=== PATIENT | male | born 1940 | race Two or more races ===

== ENCOUNTER 2018-10-24 08:55 | Inpatient (IN) | payer MEDICARE, OTHER ==
[~2018-10-24] VITALS: Ht 185.4 cm; Wt 73.0 kg
--- NOTE | 2018-10-24 09:00 | NUR ---
iED Nurse Note: Patient brought in by ambulance RA 26 fron [facility] for flu like symptoms for 3 days in SNF for EMS. patient is alert awake x3
[2018-10-24] MEDS ORDERED: ACETAMINOPHEN325 M1 ORAL (09:12)
[2018-10-24] MEDS ORDERED: BACITRACIN1 EAC1 TP (09:14)
[2018-10-24] MEDS ORDERED: POLYETHYLENE GL17 GM ORAL (09:25)
[2018-10-24] MEDS ORDERED: EMTRIVA200 MG ORAL (09:25)
[2018-10-24] MEDS ORDERED: MULTIVITAMINS1 EAC8 ORAL (09:25)
[2018-10-24] MEDS ORDERED: DONEPEZIL HCL5 M2 ORAL (09:25)
[2018-10-24] MEDS ORDERED: HEPARIN2000 UNIT/ IV (09:25)
[2018-10-24] MEDS ORDERED: CRANBERRY425 MG PO (09:25)
[2018-10-24] MEDS ORDERED: SENNA8.6 M2 PO (09:25)
[2018-10-24 09:31] LABS: HEMATOCRIT 49.5 % (42.0-52.0); MEAN CORPUSCULAR VOLUME 101 FL (80-99); PLATELET COUNT 298 K/UL (150-450); RED CELL DISTRIBUTION WIDTH 12.3 % (11.6-14.8); WHITE BLOOD COUNT 16.1 K/UL (4.8-10.8)
[2018-10-24 09:33] VITALS: BP 110/72
--- NOTE | 2018-10-24 09:33 | NUR ---
ED Nurse Note: Notified Dr. Rowley about patient's rectal temp 100.F
[2018-10-24 09:41] LABS: ANION GAP 12 mmol/L (5-15); BLOOD UREA NITROGEN 39 mg/dL (7-18); CALCIUM 9.6 MG/DL (8.5-10.1); CARBON DIOXIDE 26 MMOL/L (21-32); CHLORIDE 103 MMOL/L (98-107); CREATININE 1.7 MG/DL (0.55-1.30); POTASSIUM 4.1 MMOL/L (3.5-5.1); SODIUM 141 MMOL/L (136-145)
[2018-10-24] MEDS ORDERED: Cefepime HCl 1 GM in D5W 55 ML IVPB ONE (09:45)
[2018-10-24] MEDS ORDERED: Acetaminophen 650 MG SUPP RECTAL ONE (09:45)
[2018-10-24 09:56] LABS: ALANINE AMINOTRANSFERASE 16 U/L (12-78); ALBUMIN 3.7 G/DL (3.4-5.0); ALBUMIN/GLOBULIN RATIO 0.9 (1.0-2.7); ALKALINE PHOSPHATASE 61 U/L (46-116); ASPARTATE AMINO TRANSFERASE 23 U/L (15-37); BILIRUBIN,TOTAL 0.8 MG/DL (0.2-1.0); CKMB 4.7 NG/ML (0.0-3.6); CREATINE KINASE 371 U/L (26-308)
--- NOTE | 2018-10-24 09:59 | Emergency Room Report ---
History of Present Illness General Chief Complaint: General Complaint Source: Patient, Medical Record, EMS, PMD Present Illness HPI This patient presents from a [facility] facility. He has a history of dementia, HIV, diabetes. Per report the patient had an episode of emesis. The EMS report body aches. The patient himself has no specific complaints. He denies pain. He denies cough or congestion. He denies shortness of breath. He has no specific complaints. Allergies: Coded Allergies: CHEESE (Verified Allergy, Severe, 10/24/18) Patient History Past Medical History: see triage record, DM, CAD, dementia, HIV Social History: Denies: smoking, alcohol use, drug use Reviewed Nursing Documentation: PMH: Agreed; PSxH: Agreed Nursing Documentation-PMH Hx Diabetes: Yes History Of Psychiatric Problem: Yes - DEMENTIA ALZHEIMERS Review of Systems All Other Systems: negative except mentioned in HPI Physical Exam Vital Signs Date Time Temp Pulse Resp B/P (MAP) Pulse Ox O2 Delivery O2 Flow Rate FiO2 10/24/18 08:56 99.1 124 18 105/71 (82) 95 Nasal Cannula 4.0 Sp02 EP Interpretation: reviewed, normal General Appearance: no apparent distress, alert, GCS 15, non-toxic Head: normocephalic, atraumatic Eyes: bilateral eye normal inspection, bilateral eye PERRL ENT: hearing grossly normal, normal pharynx, no angioedema, normal voice Neck: normal inspection, full range of motion Respiratory: chest non-tender, lungs clear, normal breath sounds, no respiratory distress, no retraction, no accessory muscle use, speaking full sentences Cardiovascular #1: no edema, tachycardia Gastrointestinal: normal bowel sounds, non tender, soft, non-distended, no guarding, no rebound Rectal: deferred Musculoskeletal: normal inspection, normal range of motion, non-tender Neurologic: alert, responsive, motor strength/tone normal, speech normal Psychiatric: judgement/insight normal, mood/affect normal, no suicidal/ homicidal ideation Medical Decision Making Diagnostic Impression: Primary Impression: Fever Additional Impressions: Tachycardia Pneumonia Sepsis Pyelonephritis ER Course This patient is found to be febrile, tachycardic and possibly with a pyelonephritis. Also chest x-ray could have a possible underlying pneumonia. This patient meets criteria for sepsis. Was given aggressive IV fluids and broad-spectrum antibiotics and admitted for further evaluation and treatment. This patient is critically ill. This patient required complex medical decision- making, aggressive intervention, extensive laboratory workup and monitoring. Critical care time: 40 minutes. Laboratory Tests Test 10/24/18 16:30 10/24/18 18:25 10/25/18 04:04 10/25/18 05:45 White Blood Count 21.6 K/UL (4.8-10.8) H 14.6 K/UL (4.8-10.8) H Red Blood Count 4.14 M/UL (4.70-6.10) L 3.99 M/UL (4.70-6.10) L Hemoglobin 13.8 G/DL (14.2-18.0) L 13.1 G/DL (14.2-18.0) L Hematocrit 40.8 % (42.0-52.0) L 39.4 % (42.0-52.0) L Mean Corpuscular Volume 99 FL (80-99) 99 FL (80-99) Mean Corpuscular Hemoglobin 33.2 PG (27.0-31.0) H 32.7 PG (27.0-31.0) H Mean Corpuscular Hemoglobin Concent 33.7 G/DL (32.0-36.0) 33.1 G/DL (32.0-36.0) Red Cell Distribution Width 12.2 % (11.6-14.8) 12.3 % (11.6-14.8) Platelet Count 224 K/UL (150-450) 198 K/UL (150-450) Mean Platelet Volume 6.3 FL (6.5-10.1) L 6.4 FL (6.5-10.1) L Neutrophils (%) (Auto) % (45.0-75.0) 77.9 % (45.0-75.0) H Lymphocytes (%) (Auto) % (20.0-45.0) 17.3 % (20.0-45.0) L Monocytes (%) (Auto) % (1.0-10.0) 4.6 % (1.0-10.0) Eosinophils (%) (Auto) % (0.0-3.0) 0.1 % (0.0-3.0) Basophils (%) (Auto) % (0.0-2.0) 0.1 % (0.0-2.0) Differential Total Cells Counted 100 Neutrophils % (Manual) 76 % (45-75) H Lymphocytes % (Manual) 15 % (20-45) L Monocytes % (Manual) 4 % (1-10) Eosinophils % (Manual) 1 % (0-3) Basophils % (Manual) 0 % (0-2) Band Neutrophils 4 % (0-8) Platelet Estimate Adequate Platelet Morphology Normal Macrocytosis 1+ Lactic Acid Level 3.10 mmol/L (0.4-2.0) H 3.00 mmol/L (0.4-2.0) H 3.10 mmol/L (0.66-2.22) H Urine Color Yellow Urine Appearance Cloudy Urine pH 6 (4.5-8.0) Urine Specific [place] 1.020 (1.005-1.035) Urine Protein 3+ (NEGATIVE) H Urine Glucose (UA) 3+ (NEGATIVE) H Urine Ketones 1+ (NEGATIVE) H Urine Blood 5+ (NEGATIVE) H Urine Nitrite Negative (NEGATIVE) Urine Bilirubin Negative (NEGATIVE) Urine Urobilinogen Normal MG/DL (0.0-1.0) Urine Leukocyte Esterase 2+ (NEGATIVE) H Urine RBC Tntc /HPF (0 - 0) H Urine WBC Tntc /HPF (0 - 0) H Urine Squamous Epithelial Cells Occasional /LPF Urine Bacteria Moderate /HPF (NONE) H Prothrombin Time 11.3 SEC (9.30-11.50) Prothrombin Time INR 1.1 (0.9-1.1) PTT 30 SEC (23-33) Sodium Level 143 MMOL/L (136-145) Potassium Level 4.1 MMOL/L (3.5-5.1) Chloride Level 110 MMOL/L (98-107) H Carbon Dioxide Level 24 MMOL/L (21-32) Anion Gap 9 mmol/L (5-15) Blood Urea Nitrogen 32 mg/dL (7-18) H Creatinine 1.2 MG/DL (0.55-1.30) Estimate Glomerular Filtration Rate mL/min (>60) Glucose Level 205 MG/DL (74-106) #H Hemoglobin A1c 6.5 % (4.3-6.0) H Calcium Level 8.7 MG/DL (8.5-10.1) Phosphorus Level 2.2 MG/DL (2.5-4.9) L Magnesium Level 1.9 MG/DL (1.8-2.4) Total Bilirubin 0.6 MG/DL (0.2-1.0) Direct Bilirubin 0.1 MG/DL (0.0-0.3) Aspartate Amino Transferase (AST) 24 U/L (15-37) Alanine Aminotransferase (ALT) 21 U/L (12-78) Alkaline Phosphatase 46 U/L (46-116) Total Protein 6.4 G/DL (6.4-8.2) Albumin 2.7 G/DL (3.4-5.0) L Lipase 44 U/L (73-393) L Test 10/25/18 11:50 10/25/18 12:15 10/26/18 04:00 Urine Random Sodium 106 mmol/L (20-110) Lactic Acid Level 1.50 mmol/L (0.4-2.0) Random Vancomycin Level 8.4 ug/mL White Blood Count 13.6 K/UL (4.8-10.8) H Red Blood Count 4.26 M/UL (4.70-6.10) L Hemoglobin 14.1 G/DL (14.2-18.0) L Hematocrit 42.8 % (42.0-52.0) Mean Corpuscular Volume 101 FL (80-99) H Mean Corpuscular Hemoglobin 33.0 PG (27.0-31.0) H Mean Corpuscular Hemoglobin Concent 32.8 G/DL (32.0-36.0) Red Cell Distribution Width 13.0 % (11.6-14.8) Platelet Count 204 K/UL (150-450) Mean Platelet Volume 6.6 FL (6.5-10.1) Neutrophils (%) (Auto) 77.9 % (45.0-75.0) H Lymphocytes (%) (Auto) 15.2 % (20.0-45.0) L Monocytes (%) (Auto) 5.8 % (1.0-10.0) Eosinophils (%) (Auto) 0.1 % (0.0-3.0) Basophils (%) (Auto) 1.0 % (0.0-2.0) Sodium Level 140 MMOL/L (136-145) Potassium Level 3.8 MMOL/L (3.5-5.1) Chloride Level 107 MMOL/L (98-107) Carbon Dioxide Level 22 MMOL/L (21-32) Anion Gap 11 mmol/L (5-15) Blood Urea Nitrogen 22 mg/dL (7-18) H Creatinine 1.0 MG/DL (0.55-1.30) Estimate Glomerular Filtration Rate mL/min (>60) Glucose Level 181 MG/DL (74-106) H Hemoglobin A1c 6.6 % (4.3-6.0) H Uric Acid 4.3 MG/DL (2.6-7.2) Calcium Level 8.9 MG/DL (8.5-10.1) Phosphorus Level 1.8 MG/DL (2.5-4.9) L Magnesium Level 1.8 MG/DL (1.8-2.4) Ferritin 285 NG/ML (8-388) Total Bilirubin 0.9 MG/DL (0.2-1.0) Gamma Glutamyl Transpeptidase 20 U/L (5-85) Aspartate Amino Transferase (AST) 37 U/L (15-37) Alanine Aminotransferase (ALT) 12 U/L (12-78) Alkaline Phosphatase 54 U/L (46-116) Troponin I 0.000 ng/mL (0.000-0.056) C-Reactive Protein, Quantitative 17.1 mg/dL (0.00-0.90) H Pro-B-Type Natriuretic Peptide 4057 pg/mL (0-125) H Total Protein 6.4 G/DL (6.4-8.2) Albumin 2.7 G/DL (3.4-5.0) L Globulin 3.7 g/dL Albumin/Globulin Ratio 0.7 (1.0-2.7) L Triglycerides Level 113 MG/DL (30-150) Cholesterol Level 123 MG/DL (< 200) LDL Cholesterol 77 mg/dL (<100) HDL Cholesterol 27 MG/DL (40-60) L Cholesterol/HDL Ratio 4.6 (3.3-4.4) H Vitamin B12 Level 326 PG/ML (193-986) Folate 6.9 NG/ML (8.6-58.9) L Thyroid Stimulating Hormone (TSH) 0.588 uiU/mL (0.358-3.740) Microbiology Date/Time Source Procedure Growth Status 10/24/18 17:15 Nasal Nares - Final Complete 10/24/18 17:15 Nasal Nares - Final Complete EKG Diagnostic Results Rate: tachycardiac Rhythm: other - S.tachycardia ST Segments: no acute changes Rhythm Strip Diag. Results EP Interpretation: yes Rate: 100's Rhythm: no PVC's, no ectopy, other - S.tach Chest X-Ray Diagnostic Results Chest X-Ray Diagnostic Results : Chest X-Ray Ordered: Yes # of Views/Limited/Complete: 1 View Indication: Other EP Interpretation: Yes Interpretation: no pneumothorax, other - LLL opacity Impression: Other - See Above Electronically Signed by: Natalya Rowley DO Last Vital Signs Date Time Temp Pulse Resp B/P (MAP) Pulse Ox O2 Delivery O2 Flow Rate FiO2 10/24/18 09:33 100.0 112 21 110/72 99 Nasal Cannula 4.0 Disposition: ADMITTED INPATIENT Condition: Serious Natalya Rowley DO Oct 24, 2018 09:59
--- NOTE | 2018-10-24 10:00 | NUR ---
ED Nurse Note: patient is refusing straight cath at this time, urinal provided instruction provided.
--- NOTE | 2018-10-24 10:10 | NUR ---
ED Nurse Note: notified Dr. Rowley lactic acid 5.5
[2018-10-24 10:21] VITALS: BP 113/66
--- NOTE | 2018-10-24 10:58 | NUR ---
ED Nurse Note: patient's urine sent to lab
[2018-10-24 11:05] LABS: APPEARANCE,URINE CLOUDY; BILIRUBIN, URINE NEGATIVE (NEGATIVE); COLOR,URINE YELLOW; GLUCOSE, URINE (UA) 3+ (NEGATIVE); KETONES,URINE 1+ (NEGATIVE); LEUKOCYTE ESTERASE ,URINE 3+ (NEGATIVE); NITRITE,URINE NEGATIVE (NEGATIVE); PH,URINE 6 (4.5-8.0); PROTEIN,URINE 3+ (NEGATIVE); UROBILINOGEN,URINE NORMAL MG/DL (0.0-1.0)
[2018-10-24 11:22] VITALS: BP 127/57
[2018-10-24 11:40] VITALS: BP 108/65
--- NOTE | 2018-10-24 11:44 | NUR ---
ED Nurse Note: patient transferred to [facility] report given to Rita Endorsed all care to Olivia MENDEZ
--- NOTE | 2018-10-24 11:45 | NUR ---
NURSE NOTES: Patient admitted from ED. Placed on lacquer sizer bed. Patient is on nasal cannula at 4LPM. Awake, alert, verbal, no respiratory distress. No belongings upon admission. Will admit to SDU standard level of care.
--- NOTE | 2018-10-24 12:03 | Diagnostic Imaging Report ---
Indication: Dyspnea Comparison: None A single view chest radiograph was obtained. Findings: Patchy interstitial prominence demonstrated bilaterally nonspecific. Heart size is normal. Bones are osteopenic. IMPRESSION: Patchy basilar interstitial densities nonspecific.
--- NOTE | 2018-10-24 13:00 | NUR ---
NURSE NOTES: Skin assessment done, multiple wounds noted. Bilateral heel DTI, Bilateral foot dryness, bilateral buttocks and trochanter scattered open wounds, sacral and lower hip scattered open wounds, and big black pressure injury noted on patient's left hip/buttock/trochanter area. Wound care nurse made aware, Dr Lindquist made aware.
--- NOTE | 2018-10-24 14:29 | GI Initial Consult Note ---
History of Present Illness General Date patient seen: Oct 24, 2018 Time patient seen: 14:23 Reason for Hospitalization: General Complaint Referring physician: JAKE MAJOR Reason for Consultation: COFFEE GROUNDS Present Illness HPI This patient presents from a intermediate facility. He has a history of dementia, HIV, diabetes. Per report the patient had an episode of emesis. The EMS report body aches. The patient himself has no specific complaints. He denies pain. He denies cough or congestion. He denies shortness of breath. He has no specific complaints. GI consulted for reported. ROS limited, patient seen awake alert no apparent distress. Unable to provide any significant history. No reported coffee grounds, no nausea vomiting since admission. Labs reviewed; WBC 16.1, lactic acid of 3.7, and 1.7. Unknown history of endoscopic or colonoscopy. Home Meds Reported Medications Sennosides (SENNA) 8.6 Mg Tablet, 8.6 MG PO, TAB 10/24/18 Polyethylene Glycol 3350* (POLYETHYLENE GLYCOL 3350*) 17 Gm Powd.pack, 17 GM ORAL BEDTIME PRN for Constipation, PACKET 10/24/18 Emtricitabine* (EMTRIVA*) 200 Mg Capsule, 200 MG ORAL DAILY, CAP 10/24/18 Multivitamin With Minerals (MULTIVITAMINS WITH MINERALS*) 1 Each Tablet, 1 TAB ORAL DAILY, TAB 10/24/18 Heparin Sodium,Porcine/Ns/Pf (Heparin) 2,000 Unit/1000 Ml Iv.soln, 2000 UNIT IV 10/24/18 Donepezil Hcl* (DONEPEZIL HCL*) 5 Mg Tab.rapdis, 5 MG ORAL DAILY, TAB 10/24/18 Cranberry Extract (CRANBERRY) 425 Mg Capsule, 425 MG PO, CAP 10/24/18 Bacitracin (Bacitracin) 1 Each Packet, 1 EACH TP, PACKET 10/24/18 Acetaminophen* (ACETAMINOPHEN 325MG TABLET*) 325 Mg Tablet, 325 MG ORAL Q4H PRN for Mild Pain (Pain Scale 1-3), TAB 10/24/18 Med list reviewed/reconciled: Yes Allergies: Coded Allergies: No Known Allergies (Unverified , 10/24/18) Patient History Limited by: medical condition History Provided By: Medical Record [facility] Narrative Past Medical History: see triage record, DM, CAD, dementia, HIV Social History: Denies: smoking, alcohol use, drug use Reviewed Nursing Documentation: PMH: Agreed; PSxH: Agreed Nursing Documentation-PMH Hx Diabetes: Yes History Of Psychiatric Problem: Yes - DEMENTIA ALZHEIMER Social History: Denies: smoking, alcohol use, drug use, other Review of Systems All Other Systems: negative except mentioned in HPI Physical Exam Vital Signs Date Time Temp Pulse Resp B/P (MAP) Pulse Ox O2 Delivery O2 Flow Rate FiO2 10/24/18 08:56 99.1 124 18 105/71 (82) 95 Nasal Cannula 4.0 Sp02 EP Interpretation: reviewed, normal Labs Laboratory Tests Test 10/24/18 09:15 10/24/18 10:15 White Blood Count 16.1 K/UL (4.8-10.8) H Red Blood Count 4.90 M/UL (4.70-6.10) Hemoglobin 16.0 G/DL (14.2-18.0) Hematocrit 49.5 % (42.0-52.0) Mean Corpuscular Volume 101 FL (80-99) H Mean Corpuscular Hemoglobin 32.6 PG (27.0-31.0) H Mean Corpuscular Hemoglobin Concent 32.3 G/DL (32.0-36.0) Red Cell Distribution Width 12.3 % (11.6-14.8) Platelet Count 298 K/UL (150-450) Mean Platelet Volume 6.3 FL (6.5-10.1) L Neutrophils (%) (Auto) % (45.0-75.0) Lymphocytes (%) (Auto) % (20.0-45.0) Monocytes (%) (Auto) % (1.0-10.0) Eosinophils (%) (Auto) % (0.0-3.0) Basophils (%) (Auto) % (0.0-2.0) Differential Total Cells Counted 100 Neutrophils % (Manual) 82 % (45-75) H Lymphocytes % (Manual) 7 % (20-45) L Monocytes % (Manual) 4 % (1-10) Eosinophils % (Manual) 0 % (0-3) Basophils % (Manual) 0 % (0-2) Band Neutrophils 7 % (0-8) Platelet Estimate Adequate Platelet Morphology Normal Macrocytosis 1+ Prothrombin Time 10.7 SEC (9.30-11.50) Prothromb Time International Ratio 1.0 (0.9-1.1) Activated Partial Thromboplast Time 26 SEC (23-33) Urine Color Yellow Urine Appearance Cloudy Urine pH 6 (4.5-8.0) Urine Specific [place] 1.020 (1.005-1.035) Urine Protein 3+ (NEGATIVE) H Urine Glucose (UA) 3+ (NEGATIVE) H Urine Ketones 1+ (NEGATIVE) H Urine Blood 5+ (NEGATIVE) H Urine Nitrite Negative (NEGATIVE) Urine Bilirubin Negative (NEGATIVE) Urine Urobilinogen Normal MG/DL (0.0-1.0) Urine Leukocyte Esterase 3+ (NEGATIVE) H Urine RBC 30-40 /HPF (0 - 0) H Urine WBC 60-80 /HPF (0 - 0) H Urine Squamous Epithelial Cells Occasional /LPF Urine Bacteria Moderate /HPF (NONE) H Sodium Level 141 MMOL/L (136-145) Potassium Level 4.1 MMOL/L (3.5-5.1) Chloride Level 103 MMOL/L (98-107) Carbon Dioxide Level 26 MMOL/L (21-32) Anion Gap 12 mmol/L (5-15) Blood Urea Nitrogen 39 mg/dL (7-18) H Creatinine 1.7 MG/DL (0.55-1.30) H Estimat Glomerular Filtration Rate mL/min (>60) Glucose Level 370 MG/DL (74-106) H Lactic Acid Level 5.50 mmol/L (0.4-2.0) H 3.70 mmol/L (0.66-2.22) H Calcium Level 9.6 MG/DL (8.5-10.1) Total Bilirubin 0.8 MG/DL (0.2-1.0) Aspartate Amino Transf (AST/SGOT) 23 U/L (15-37) Alanine Aminotransferase (ALT/SGPT) 16 U/L (12-78) Alkaline Phosphatase 61 U/L (46-116) Total Creatine Kinase 371 U/L (26-308) H Creatine Kinase MB 4.7 NG/ML (0.0-3.6) H Creatine Kinase MB Relative Index 1.2 Troponin I 0.000 ng/mL (0.000-0.056) Total Protein 8.0 G/DL (6.4-8.2) Albumin 3.7 G/DL (3.4-5.0) Globulin 4.3 g/dL Albumin/Globulin Ratio 0.9 (1.0-2.7) L General Appearance: well appearing, no apparent distress, alert Head: normocephalic EENT: PERRL/EOMI, normal ENT inspection Neck: supple Respiratory: normal breath sounds, no respiratory distress Cardiovascular: normal rate Gastrointestinal: normal inspection, non tender, soft, normal bowel sounds, non -distended Rectal: deferred Genitourinary: deferred Musculoskeletal: normal inspection, back normal Neurologic: alert, responsive Skin: normal inspection, normal color, no rash, warm/dry, palpation normal, well hydrated Lymphatic: normal inspection, no adenopathy Current Medications Current Medications Medications (Trade) Dose Ordered Sig/Itzel Route PRN Reason Start Time Stop Time Status Last Admin Dose Admin Albuterol/ Ipratropium (Albuterol/ Ipratropium) 3 ml Q4HRT HHN 10/24/18 15:00 10/29/18 14:59 GI: Plan Problems: (1) Coffee ground emesis (2) GI bleed Plan No plans for GI procedures at this time given stable H&H OB stool r/o GI bleed Okay to advance to ADA diet Monitor H&H, PRN transfusions zofran prn PO hydration ppi daily follow labs Discussed with Dr. Mendoza. Thank you for this patient referral, we will follow. The patient was seen and examined at bedside and all new and available data was reviewed in the patients chart. I agree with the above findings, impression and plan. (Patient seen earlier today. Signature stamp does not reflect patient encounter time.). - MD Apryl CaseyClearsky [facility] AvondaleRodrigue LITIGATION LEGAL ASSISTANT Oct 24, 2018 14:29
[2018-10-24] MEDS ORDERED: Sennosides 8.6mg tab ORAL PRN (14:30)
[2018-10-24] MEDS ORDERED: Albuterol/Ipratropium 3ml neb HHN PRN (15:00)
[2018-10-24] MEDS ORDERED: Albuterol/Ipratropium 3ml neb HHN SCH (15:00)
[2018-10-24 16:00] VITALS: BP 100/63
--- NOTE | 2018-10-24 16:25 | Pulmonology Progress Note ---
Assessment/Plan Assessment/Plan Pulmonary Consultation HPI Patient is a 77 year old man with history of HIV, Dementia, Diabetes, CAD who presents from a long-term facility after a reported episode of emesis. Noted to have sinus tachycardia and evidence of pneumonia in the ED. The patient himself has no specific complaints. He denies pain. He denies cough or congestion. He denies shortness of breath. He has no specific complaints. Allergies: No Known Allergies Past Medical History: DM, CAD, dementia, HIV All Other Systems: negative except mentioned in HPI Physical Exam Vital Signs Noted Date Time Temp Pulse Resp B/P (MAP) Pulse Ox O2 Delivery O2 Flow Rate FiO2 10/24/18 08:56 99.1 124 18 105/71 (82) 95 Nasal Cannula 4.0 General Appearance: no apparent distress, alert, GCS 15, non-toxic, chronically ill appearing Head: normocephalic, atraumatic Eyes: bilateral eye normal inspection, bilateral eye PERRL ENT: hearing grossly normal, normal pharynx, no angioedema, normal voice Neck: normal inspection, full range of motion Respiratory: chest non-tender, lungs clear, normal breath sounds, no respiratory distress, no retraction, no accessory muscle use, speaking full sentences Cardiovascular: no edema, tachycardia, HS normal Gastrointestinal: normal bowel sounds, non tender, soft, non-distended, no guarding, no rebound Rectal: deferred Musculoskeletal: normal inspection, normal range of motion, non-tender Neurologic: alert, responsive, motor strength/tone normal, speech normal Impression: Pneumonia Tachycardia, Fever Sepsis HIV Dementia Diabetes - glucose 342 CAD Plan IV Antibiotics per ID IVF ST eval swallow Protonix PPX LE dupplex HHN O2 PRN EKG: Rate: tachycardiac - S.tachycardia ST Segments: no acute changes Chest X-Ray: no pneumothorax, other - LLL opacity Subjective ROS Limited/Unobtainable: No Allergies: Coded Allergies: CHEESE (Verified Allergy, Severe, 10/24/18) Objective Last 24 Hour Vital Signs Date Time Temp Pulse Resp B/P (MAP) Pulse Ox O2 Delivery O2 Flow Rate FiO2 10/24/18 12:27 Nasal Cannula 4.0 10/24/18 11:43 111 10/24/18 11:40 99.1 95 18 127/57 99 Nasal Cannula 4.0 10/24/18 11:40 97.7 109 22 108/65 (79) 98 10/24/18 11:22 99.1 95 18 127/57 99 Nasal Cannula 4.0 10/24/18 10:31 99.1 10/24/18 10:21 100.0 104 19 113/66 100 Nasal Cannula 4.0 10/24/18 10:20 112 21 Nasal Cannula 4.0 10/24/18 09:33 100.0 112 21 110/72 99 Nasal Cannula 4.0 10/24/18 08:56 99.1 124 18 105/71 (82) 95 Nasal Cannula 4.0 Microbiology Date/Time Source Procedure Growth Status 10/24/18 09:15 Rectum Received Laboratory Tests 10/24/18 09:15: White Blood Count 16.1H, Red Blood Count 4.90, Hemoglobin 16.0, Hematocrit 49.5 , Mean Corpuscular Volume 101H, Mean Corpuscular Hemoglobin 32.6H, Mean Corpuscular Hemoglobin Concent 32.3, Red Cell Distribution Width 12.3, Platelet Count 298, Mean Platelet Volume 6.3L, Neutrophils (%) (Auto) , Lymphocytes (%) ( Auto) , Monocytes (%) (Auto) , Eosinophils (%) (Auto) , Basophils (%) (Auto) , Differential Total Cells Counted 100, Neutrophils % (Manual) 82H, Lymphocytes % (Manual) 7L, Monocytes % (Manual) 4, Eosinophils % (Manual) 0, Basophils % ( Manual) 0, Band Neutrophils 7, Platelet Estimate Adequate, Platelet Morphology Normal, Macrocytosis 1+, Prothrombin Time 10.7, Prothromb Time International Ratio 1.0, Activated Partial Thromboplast Time 26, Urine Color Yellow, Urine Appearance Cloudy, Urine pH 6, Urine Specific [place] 1.020, Urine Protein 3+H, Urine Glucose (UA) 3+H, Urine Ketones 1+H, Urine Blood 5+H, Urine Nitrite Negative, Urine Bilirubin Negative, Urine Urobilinogen Normal, Urine Leukocyte Esterase 3+H, Urine RBC 30-40H, Urine WBC 60-80H, Urine Squamous Epithelial Cells Occasional, Urine Bacteria ModerateH, Sodium Level 141, Potassium Level 4.1, Chloride Level 103, Carbon Dioxide Level 26, Anion Gap 12, Blood Urea Nitrogen 39H, Creatinine 1.7H, Estimat Glomerular Filtration Rate , Glucose Level 370H, Lactic Acid Level 5.50H, Calcium Level 9.6, Total Bilirubin 0.8, Aspartate Amino Transf (AST/SGOT) 23, Alanine Aminotransferase (ALT/SGPT) 16, Alkaline Phosphatase 61, Total Creatine Kinase 371H, Creatine Kinase MB 4.7H, Creatine Kinase MB Relative Index 1.2, Troponin I 0.000, Total Protein 8.0, Albumin 3.7, Globulin 4.3, Albumin/Globulin Ratio 0.9L 10/24/18 10:15: Lactic Acid Level 3.70H Current Medications Medications (Trade) Dose Ordered Sig/Itzel Route PRN Reason Start Time Stop Time Status Last Admin Dose Admin Albuterol/ Ipratropium (Albuterol/ Ipratropium) 3 ml Q4HRT PRN HHN Shortness of breath 10/24/18 15:00 10/29/18 14:59 Cefepime HCl 1 gm/ Dextrose 55 ml @ 110 mls/hr Q24H IVPB 10/25/18 09:00 11/01/18 08:59 Dextrose (Dextrose 50%) 25 ml Q30M PRN IV Hypoglycemia 10/24/18 14:45 11/23/18 14:44 Dextrose (Dextrose 50%) 50 ml Q30M PRN IV Hypoglycemia 10/24/18 14:45 11/23/18 14:44 Docusate Sodium (Colace) 100 mg THREE TIMES A DAY ORAL 10/24/18 18:00 11/23/18 17:59 Donepezil HCl (Aricept) 5 mg QHS ORAL 10/24/18 21:00 11/23/18 20:59 Insulin Aspart (NovoLOG) BEFORE MEALS AND HS SUBQ 10/24/18 16:30 11/23/18 16:29 Multivitamins (Multivitamins) 1 tab DAILY ORAL 10/25/18 09:00 11/24/18 08:59 Ondansetron HCl (Zofran) 4 mg Q6H PRN IVP Nausea & Vomiting 10/24/18 14:30 11/23/18 14:29 Pantoprazole (Protonix) 40 mg DAILY ORAL 10/25/18 09:00 11/24/18 08:59 Polyethylene Glycol (Miralax) 17 gm BEDTIME ORAL 10/24/18 21:00 11/23/18 20:59 Sennosides (Senokot) 8.6 mg DAILYPRN PRN ORAL Constipation 10/24/18 14:30 11/23/18 14:29 Sodium Chloride 1,000 ml @ 75 mls/hr [id number] IV 10/24/18 14:45 11/23/18 14:44 10/24/18 16:12 Tamsulosin HCl (Flomax) 0.4 mg BEDTIME ORAL 10/24/18 21:00 11/23/18 20:59 Rasta Candelario MD Oct 24, 2018 16:25
[2018-10-24 16:48] LABS: HEMATOCRIT 40.8 % (42.0-52.0); HEMOGLOBIN 13.8 G/DL (14.2-18.0); MEAN CORPUSCULAR VOLUME 99 FL (80-99); PLATELET COUNT 224 K/UL (150-450); RED BLOOD COUNT 4.14 M/UL (4.70-6.10); RED CELL DISTRIBUTION WIDTH 12.2 % (11.6-14.8); WHITE BLOOD COUNT 21.6 K/UL (4.8-10.8)
--- NOTE | 2018-10-24 17:00 | Consultation ---
DATE OF CONSULTATION: 10/24/2018 INFECTIOUS DISEASE CONSULTATION CONSULTING PHYSICIAN: Rigo Ames M.D. PRIMARY ATTENDING PHYSICIAN: Suresh Lindquist M.D. REASON FOR CONSULTATION: Sepsis, HIV, pneumonia. HISTORY OF PRESENT ILLNESS: This is a 77-year-old white man, who is a prison resident, admitted today complaining of body pain and vomiting. In the hospital, he has leukocytosis, tachycardia, lactic acidosis. PAST MEDICAL HISTORY: HIV, Alzheimer dementia, diabetes mellitus, coronary artery disease, BPH. ALLERGIES: No known drug allergies. MEDICATIONS: Got a dose of cefepime, Tylenol, sodium chloride, and famotidine in the ER and the patient is supposed to be admitted. SOCIAL HISTORY: jail resident. Denies alcohol, drug abuse, or smoking. REVIEW OF SYSTEMS: The patient has some coughing. He has difficulty of passing urine. PHYSICAL EXAMINATION: VITAL SIGNS: Temperature 99.1, T-max is 100, pulse is 104 and at the time of admission was 124. GENERAL APPEARANCE: Seems to be thin and cachectic. HEAD AND NECK: [place] conjunctivae. HEART: Tachycardic. LUNGS: Clear. ABDOMEN: Soft, nontender. EXTREMITIES: No edema. He has severe muscle atrophy. NEUROLOGIC: He is alert and verbal. LABORATORY AND DIAGNOSTIC DATA: WBC 16.1, hemoglobin 16, hematocrit 39.5, platelet 298,000. Sodium 141, potassium 4.1, chloride 103, bicarbonate 26, BUN 39, creatinine 1.9, glucose 370. Lactic acid 5.5. CK is 271, CK-MB 4.7. Chest x-ray showed some infiltrate in the left side. IMPRESSION: Sepsis with leukocytosis and tachycardia with low-grade fever. The patient had dysuria and BPH, may have UTI also, pneumonia, lactic acidosis, acute renal failure, diabetes mellitus with hyperglycemia, Alzheimer dementia. RECOMMENDATION: Follow up the cultures. We will continue with current antibiotic, cefepime. At the end of my exam, I thank Dr. Lindquist for involving me in the care of this patient. Rigo Ames M.D. DR: Madalyn JOB#: [id number] CC:
[2018-10-24] MEDS: NovoLOG Insulin Flexpen SUBQ SCH ×2 (17:23→21:00)
[2018-10-24] MEDS: Docusate 100mg cap ORAL SCH (17:24)
--- NOTE | 2018-10-24 18:00 | NUR ---
NURSE NOTES: Informed Dr. Candelario that patient is not tolerating dinner meal, with order to continue IVF of NS running at 75cc/hour. Will continue to monitor.
[2018-10-24 18:49] LABS: APPEARANCE,URINE CLOUDY; BILIRUBIN, URINE NEGATIVE (NEGATIVE); GLUCOSE, URINE (UA) 3+ (NEGATIVE); KETONES,URINE 1+ (NEGATIVE); LEUKOCYTE ESTERASE ,URINE 2+ (NEGATIVE); NITRITE,URINE NEGATIVE (NEGATIVE); PH,URINE 6 (4.5-8.0); PROTEIN,URINE 3+ (NEGATIVE); UROBILINOGEN,URINE NORMAL MG/DL (0.0-1.0)
[2018-10-24 18:50] LABS: COLOR,URINE YELLOW
--- NOTE | 2018-10-24 19:25 | NUR ---
NURSE NOTES: Received patient from ANDREA Baker. patient is resting in bed, arousable to voice and follows commands. denies pain at this time. patient is on 4 L O2 via NC, tolerating well; no s/sx of respiratory distress noted at this time. IV site is patent and intact, running fluids at prescribed rate. bed in lowest position and locked, siderails up X3, call light within reach. will continue to monitor.
--- NOTE | 2018-10-24 19:28 | NUR ---
HAND-OFF: Report given to ANDREA Whipple.
[2018-10-24 20:00] VITALS: BP 112/64
[2018-10-24] MEDS ORDERED: Donepezil 5mg Tab ORAL SCH (21:00)
[2018-10-24] MEDS: Heparin 5000 units/ml inj SUBQ SCH (21:00)
[2018-10-24] MEDS ORDERED: Vancomycin 1.25gm Premix IVPB SCH (21:00)
[2018-10-24] MEDS: Dakin's 0.5% (Full Strength) 16oz TOPIC SCH (21:23)
[2018-10-24] MEDS: Tamsulosin 0.4mg cap ORAL SCH (21:23)
[2018-10-24] MEDS: Miralax 17gm pkt ORAL SCH (21:23)
--- NOTE | 2018-10-24 21:50 | NUR ---
NURSE NOTES: patient refused labs; patient was offered lab draw at 3 different times, explained benefits and risks. patient verbalized understanding but still refused labs.
[2018-10-25 01:35] VITALS: BP 112/50
--- NOTE | 2018-10-25 03:15 | History and Physical Report ---
DATE OF ADMISSION: 10/24/2018 HISTORY OF PRESENT ILLNESS: The patient is a poor historian, is admitted for tachycardia, hypoxia, and coffee-ground emesis at the retirement. Again, the patient is a very poor historian. He has dementia, cachexia, has multiple wounds, and again was tachycardic, hypoxic, and coffee ground, which is the reason for transfer of the patient. The patient is brought in via 911 paramedics. PAST MEDICAL HISTORY: Advanced dementia, constipation, cachexia, NIDDM, constipation, BPH, multiple decubitus. PAST SURGICAL HISTORY: Appendectomy. ALLERGIES: To cheese. MEDICATIONS: Benazepril, , multivitamin, , Senokot. FAMILY HISTORY: Noncontributory. SOCIAL HISTORY: Denies history of alcohol or illicit drugs. Denies history of smoking. REVIEW OF SYSTEMS: HEENT: Denies headaches. RESPIRATORY: Denies shortness of breath. Denies cough. CARDIOVASCULAR: Denies chest pain. Denies orthopnea. GASTROINTESTINAL: Does report vomiting. Denies abdominal pain. EXTREMITIES: Denies pain in the extremities. CENTRAL NERVOUS SYSTEM: Denies changes in vision or speech pattern, however, is a poor historian. PHYSICAL EXAMINATION: VITAL SIGNS: Basically temperature 99.1, pulse is 95, blood pressure is 127/57. HEENT: PERRLA. NECK: Supple. CHEST: Clear to auscultation. CARDIOVASCULAR: Regular rate and rhythm. ABDOMEN: Soft. Positive bowel sounds. No organomegaly. EXTREMITIES: No edema. has multiple decubitus. NEUROLOGIC: Oriented to name. LABORATORY DATA: WBC of 16.1, hemoglobin 16, and platelets of 298. Sodium 141, potassium 4.1, BUN of 39, creatinine 1.7, and glucose of 370. ASSESSMENT AND PLAN: 1. Gastrointestinal bleed. 2. HIV. 3. Hypoxia. 4. Rule out aspiration pneumonia. 5. Tachycardia. 6. Coffee-ground emesis. I have asked Dr. Matamoros, Dr. Candelario, Dr. Rigo Ames as well to see the patient to treat the patient for the above-mentioned diagnoses as well as for the treatment. Suresh Lindquist M.D. DR: BRIDGETTE JOB#: [id number] CC:
[2018-10-25 04:00] VITALS: BP 105/62
[2018-10-25 04:27] LABS: BASOPHILS % (AUTO) 0.1 % (0.0-2.0); EOSINOPHILS % (AUTO) 0.1 % (0.0-3.0); HEMATOCRIT 39.4 % (42.0-52.0); HEMOGLOBIN 13.1 G/DL (14.2-18.0); LYMPHOCYTES % (AUTO) 17.3 % (20.0-45.0); MEAN CORPUSCULAR VOLUME 99 FL (80-99); MONOCYTES % (AUTO) 4.6 % (1.0-10.0); NEUTROPHILS % (AUTO) 77.9 % (45.0-75.0); PLATELET COUNT 198 K/UL (150-450); RED BLOOD COUNT 3.99 M/UL (4.70-6.10); RED CELL DISTRIBUTION WIDTH 12.3 % (11.6-14.8); WHITE BLOOD COUNT 14.6 K/UL (4.8-10.8)
[2018-10-25 04:29] LABS: INR 1.1 (0.9-1.1)
[2018-10-25] MEDS: NovoLOG Insulin Flexpen SUBQ SCH ×4 (05:53→20:43)
--- NOTE | 2018-10-25 07:08 | General Progress Note ---
Assessment/Plan Problem List: (1) Coffee ground emesis ICD Codes: K92.0 - Hematemesis SNOMED: 38932309 (2) Fever ICD Codes: R50.9 - Fever, unspecified SNOMED: 837511039 (3) BPH (benign prostatic hyperplasia) ICD Codes: N40.0 - Benign prostatic hyperplasia without lower urinary tract symptoms SNOMED: 260074530 (4) Pneumonia ICD Codes: J18.9 - Pneumonia, unspecified organism SNOMED: 440369805 Assessment/Plan: no recurrent vomiting poor po intake ppi stable H&H no plans for EGD or colonoscopy at this time Subjective ROS Limited/Unobtainable: No Allergies: Coded Allergies: CHEESE (Verified Allergy, Severe, 10/24/18) Objective Last 24 Hour Vital Signs Date Time Temp Pulse Resp B/P (MAP) Pulse Ox O2 Delivery O2 Flow Rate FiO2 10/25/18 04:00 Nasal Cannula 2.0 10/25/18 04:00 99 10/25/18 04:00 97.9 99 22 105/62 (76) 97 10/25/18 01:35 97.8 96 22 112/50 (70) 94 10/25/18 00:00 98 10/25/18 00:00 Nasal Cannula 2.0 10/24/18 21:00 93 Nasal Cannula 2.0 28 10/24/18 20:00 Nasal Cannula 4.0 10/24/18 20:00 97.7 98 22 112/64 (80) 94 10/24/18 20:00 96 18 93 Nasal Cannula 2.0 28 10/24/18 19:07 98 10/24/18 16:00 97.2 101 22 100/63 (75) 95 10/24/18 15:46 105 10/24/18 12:27 Nasal Cannula 4.0 10/24/18 11:43 111 10/24/18 11:40 99.1 95 18 127/57 99 Nasal Cannula 4.0 10/24/18 11:40 97.7 109 22 108/65 (79) 98 10/24/18 11:22 99.1 95 18 127/57 99 Nasal Cannula 4.0 10/24/18 10:31 99.1 10/24/18 10:21 100.0 104 19 113/66 100 Nasal Cannula 4.0 10/24/18 10:20 112 21 Nasal Cannula 4.0 10/24/18 09:33 100.0 112 21 110/72 99 Nasal Cannula 4.0 10/24/18 08:56 99.1 124 18 105/71 (82) 95 Nasal Cannula 4.0 Intake and Output 10/24/18 10/25/18 18:59 06:59 Intake Total 135 ml 1450 ml Output Total 100 ml 50 ml Balance 35 ml 1400 ml Intake Oral 700 ml IV Total 135 ml 750 ml Output Urine Total 100 ml 50 ml # Voids 2 # Bowel Movements 1 Laboratory Tests 10/24/18 09:15: White Blood Count 16.1H, Red Blood Count 4.90, Hemoglobin 16.0, Hematocrit 49.5 , Mean Corpuscular Volume 101H, Mean Corpuscular Hemoglobin 32.6H, Mean Corpuscular Hemoglobin Concent 32.3, Red Cell Distribution Width 12.3, Platelet Count 298, Mean Platelet Volume 6.3L, Neutrophils (%) (Auto) , Lymphocytes (%) ( Auto) , Monocytes (%) (Auto) , Eosinophils (%) (Auto) , Basophils (%) (Auto) , Differential Total Cells Counted 100, Neutrophils % (Manual) 82H, Lymphocytes % (Manual) 7L, Monocytes % (Manual) 4, Eosinophils % (Manual) 0, Basophils % ( Manual) 0, Band Neutrophils 7, Platelet Estimate Adequate, Platelet Morphology Normal, Macrocytosis 1+, Prothrombin Time 10.7, Prothromb Time International Ratio 1.0, Activated Partial Thromboplast Time 26, Urine Color Yellow, Urine Appearance Cloudy, Urine pH 6, Urine Specific [place] 1.020, Urine Protein 3+H, Urine Glucose (UA) 3+H, Urine Ketones 1+H, Urine Blood 5+H, Urine Nitrite Negative, Urine Bilirubin Negative, Urine Urobilinogen Normal, Urine Leukocyte Esterase 3+H, Urine RBC 30-40H, Urine WBC 60-80H, Urine Squamous Epithelial Cells Occasional, Urine Bacteria ModerateH, Sodium Level 141, Potassium Level 4.1, Chloride Level 103, Carbon Dioxide Level 26, Anion Gap 12, Blood Urea Nitrogen 39H, Creatinine 1.7H, Estimat Glomerular Filtration Rate , Glucose Level 370H, Lactic Acid Level 5.50H, Calcium Level 9.6, Total Bilirubin 0.8, Aspartate Amino Transf (AST/SGOT) 23, Alanine Aminotransferase (ALT/SGPT) 16, Alkaline Phosphatase 61, Total Creatine Kinase 371H, Creatine Kinase MB 4.7H, Creatine Kinase MB Relative Index 1.2, Troponin I 0.000, Total Protein 8.0, Albumin 3.7, Globulin 4.3, Albumin/Globulin Ratio 0.9L 10/24/18 10:15: Lactic Acid Level 3.70H 10/24/18 16:30: White Blood Count 21.6H, Red Blood Count 4.14L, Hemoglobin 13.8L, Hematocrit 40.8L, Mean Corpuscular Volume 99, Mean Corpuscular Hemoglobin 33.2H, Mean Corpuscular Hemoglobin Concent 33.7, Red Cell Distribution Width 12.2, Platelet Count 224, Mean Platelet Volume 6.3L, Neutrophils (%) (Auto) , Lymphocytes (%) ( Auto) , Monocytes (%) (Auto) , Eosinophils (%) (Auto) , Basophils (%) (Auto) , Differential Total Cells Counted 100, Neutrophils % (Manual) 76H, Lymphocytes % (Manual) 15L, Monocytes % (Manual) 4, Eosinophils % (Manual) 1, Basophils % ( Manual) 0, Band Neutrophils 4, Platelet Estimate Adequate, Platelet Morphology Normal, Macrocytosis 1+, Lactic Acid Level 3.10H 10/24/18 18:25: Urine Color Yellow, Urine Appearance Cloudy, Urine pH 6, Urine Specific [place] 1.020, Urine Protein 3+H, Urine Glucose (UA) 3+H, Urine Ketones 1+H, Urine Blood 5+H, Urine Nitrite Negative, Urine Bilirubin Negative, Urine Urobilinogen Normal, Urine Leukocyte Esterase 2+H, Urine RBC TntcH, Urine WBC TntcH, Urine Squamous Epithelial Cells Occasional, Urine Bacteria ModerateH 10/25/18 04:04: White Blood Count 14.6H, Red Blood Count 3.99L, Hemoglobin 13.1L, Hematocrit 39.4L, Mean Corpuscular Volume 99, Mean Corpuscular Hemoglobin 32.7H, Mean Corpuscular Hemoglobin Concent 33.1, Red Cell Distribution Width 12.3, Platelet Count 198, Mean Platelet Volume 6.4L, Neutrophils (%) (Auto) 77.9H, Lymphocytes (%) (Auto) 17.3L, Monocytes (%) (Auto) 4.6, Eosinophils (%) (Auto) 0.1, Basophils (%) (Auto) 0.1, Prothrombin Time 11.3, Prothromb Time International Ratio 1.1, Activated Partial Thromboplast Time 30, Sodium Level [Pending], Potassium Level [Pending], Chloride Level [Pending], Carbon Dioxide Level [ Pending], Blood Urea Nitrogen [Pending], Creatinine [Pending], Estimat Glomerular Filtration Rate [Pending], Glucose Level [Pending], Hemoglobin A1c 6.5H, Lactic Acid Level 3.00H, Calcium Level [Pending], Lipase [Pending] 10/25/18 05:45: Lactic Acid Level 3.10H Height (Feet): 6 Height (Inches): 1.00 Weight (Pounds): 161 General Appearance: no apparent distress EENT: normal ENT inspection Neck: supple Cardiovascular: normal rate Respiratory/Chest: decreased breath sounds Abdomen: normal bowel sounds, non tender, soft Extremities: non-tender Fernie Mendoza MD Oct 25, 2018 07:08
--- NOTE | 2018-10-25 07:23 | NUR ---
HAND-OFF: Report given to ANDREA Francisco. patient is in stable condition.
[2018-10-25 07:36] LABS: ANION GAP 9 mmol/L (5-15); BLOOD UREA NITROGEN 32 mg/dL (7-18); CALCIUM 8.7 MG/DL (8.5-10.1); CARBON DIOXIDE 24 MMOL/L (21-32); CHLORIDE 110 MMOL/L (98-107); CREATININE 1.2 MG/DL (0.55-1.30); POTASSIUM 4.1 MMOL/L (3.5-5.1); SODIUM 143 MMOL/L (136-145)
[2018-10-25 08:00] VITALS: BP 96/58
[2018-10-25] MEDS: Cefepime HCl 1 GM in D5W 55 ML IVPB SCH ×3 (08:39→20:42)
[2018-10-25] MEDS: Docusate 100mg cap ORAL SCH ×4 (08:39→17:36)
[2018-10-25] MEDS: Heparin 5000 units/ml inj SUBQ SCH ×2 (08:41→20:43)
--- NOTE | 2018-10-25 09:43 | NUR ---
NURSE NOTES: left a message to dr nuñez informing him that patient refused CXR today. will continue to monitor.
--- NOTE | 2018-10-25 10:04 | Infectious Diseases Prog Note ---
Assessment/Plan Assessment/Plan IMPRESSION: Sepsis with leukocytosis and tachycardia with low-grade fever. UTI also, pneumonia, HIV lactic acidosis, Acute renal failure improving, diabetes mellitus with hyperglycemia, Alzheimer dementia. RECOMMENDATION: Follow up the cultures. continue cefepime. Hold HIV treatment ([place]) for now Subjective ROS Limited/Unobtainable: No Constitutional: Reports: no symptoms, other - feels better Respiratory: Reports: no symptoms Cardiovascular: Reports: no symptoms Gastrointestinal/Abdominal: Reports: no symptoms Genitourinary: Reports: other - Wright was placed Allergies: Coded Allergies: CHEESE (Verified Allergy, Severe, 10/24/18) Objective Vital Signs Last 24 Hour Vital Signs Date Time Temp Pulse Resp B/P (MAP) Pulse Ox O2 Delivery O2 Flow Rate FiO2 10/25/18 08:00 98.1 98 23 96/58 (71) 98 10/25/18 08:00 Nasal Cannula 2.0 10/25/18 07:44 83 10/25/18 04:00 Nasal Cannula 2.0 10/25/18 04:00 99 10/25/18 04:00 97.9 99 22 105/62 (76) 97 10/25/18 01:35 97.8 96 22 112/50 (70) 94 10/25/18 00:00 98 10/25/18 00:00 Nasal Cannula 2.0 10/24/18 21:00 93 Nasal Cannula 2.0 28 10/24/18 20:00 Nasal Cannula 4.0 10/24/18 20:00 97.7 98 22 112/64 (80) 94 10/24/18 20:00 96 18 93 Nasal Cannula 2.0 28 10/24/18 19:07 98 10/24/18 16:00 97.2 101 22 100/63 (75) 95 10/24/18 15:46 105 10/24/18 12:27 Nasal Cannula 4.0 10/24/18 11:43 111 10/24/18 11:40 99.1 95 18 127/57 99 Nasal Cannula 4.0 10/24/18 11:40 97.7 109 22 108/65 (79) 98 10/24/18 11:22 99.1 95 18 127/57 99 Nasal Cannula 4.0 10/24/18 10:31 99.1 10/24/18 10:21 100.0 104 19 113/66 100 Nasal Cannula 4.0 10/24/18 10:20 112 21 Nasal Cannula 4.0 Height (Feet): 6 Height (Inches): 1.00 Weight (Pounds): 161 General Appearance: no acute distress HEENT: mucous membranes moist Respiratory/Chest: lungs clear Cardiovascular: normal rate Abdomen: soft, non tender Genitourinary: other - Wright catheter Extremities: no edema Neurologic/Psychiatric: alert, responsive Microbiology Date/Time Source Procedure Growth Status 10/24/18 17:15 Nasal Nares - Final Complete 10/24/18 17:15 Nasal Nares - Final Complete 10/24/18 18:25 Urine,Clean Catch Urine Culture - Preliminary NO GROWTH Resulted 10/24/18 09:15 Urine,Clean Catch Urine Culture - Preliminary Gram Negative Shahram Resulted 10/24/18 09:15 Rectum Received Laboratory Tests Test 10/24/18 10:15 10/24/18 16:30 10/24/18 18:25 10/25/18 04:04 Lactic Acid Level 3.70 mmol/L (0.66-2.22) H 3.10 mmol/L (0.4-2.0) H 3.00 mmol/L (0.4-2.0) H White Blood Count 21.6 K/UL (4.8-10.8) H 14.6 K/UL (4.8-10.8) H Red Blood Count 4.14 M/UL (4.70-6.10) L 3.99 M/UL (4.70-6.10) L Hemoglobin 13.8 G/DL (14.2-18.0) L 13.1 G/DL (14.2-18.0) L Hematocrit 40.8 % (42.0-52.0) L 39.4 % (42.0-52.0) L Mean Corpuscular Volume 99 FL (80-99) 99 FL (80-99) Mean Corpuscular Hemoglobin 33.2 PG (27.0-31.0) H 32.7 PG (27.0-31.0) H Mean Corpuscular Hemoglobin Concent 33.7 G/DL (32.0-36.0) 33.1 G/DL (32.0-36.0) Red Cell Distribution Width 12.2 % (11.6-14.8) 12.3 % (11.6-14.8) Platelet Count 224 K/UL (150-450) 198 K/UL (150-450) Mean Platelet Volume 6.3 FL (6.5-10.1) L 6.4 FL (6.5-10.1) L Neutrophils (%) (Auto) % (45.0-75.0) 77.9 % (45.0-75.0) H Lymphocytes (%) (Auto) % (20.0-45.0) 17.3 % (20.0-45.0) L Monocytes (%) (Auto) % (1.0-10.0) 4.6 % (1.0-10.0) Eosinophils (%) (Auto) % (0.0-3.0) 0.1 % (0.0-3.0) Basophils (%) (Auto) % (0.0-2.0) 0.1 % (0.0-2.0) Differential Total Cells Counted 100 Neutrophils % (Manual) 76 % (45-75) H Lymphocytes % (Manual) 15 % (20-45) L Monocytes % (Manual) 4 % (1-10) Eosinophils % (Manual) 1 % (0-3) Basophils % (Manual) 0 % (0-2) Band Neutrophils 4 % (0-8) Platelet Estimate Adequate Platelet Morphology Normal Macrocytosis 1+ Urine Color Yellow Urine Appearance Cloudy Urine pH 6 (4.5-8.0) Urine Specific [place] 1.020 (1.005-1.035) Urine Protein 3+ (NEGATIVE) H Urine Glucose (UA) 3+ (NEGATIVE) H Urine Ketones 1+ (NEGATIVE) H Urine Blood 5+ (NEGATIVE) H Urine Nitrite Negative (NEGATIVE) Urine Bilirubin Negative (NEGATIVE) Urine Urobilinogen Normal MG/DL (0.0-1.0) Urine Leukocyte Esterase 2+ (NEGATIVE) H Urine RBC Tntc /HPF (0 - 0) H Urine WBC Tntc /HPF (0 - 0) H Urine Squamous Epithelial Cells Occasional /LPF Urine Bacteria Moderate /HPF (NONE) H Prothrombin Time 11.3 SEC (9.30-11.50) Prothromb Time International Ratio 1.1 (0.9-1.1) Activated Partial Thromboplast Time 30 SEC (23-33) Sodium Level 143 MMOL/L (136-145) Potassium Level 4.1 MMOL/L (3.5-5.1) Chloride Level 110 MMOL/L (98-107) H Carbon Dioxide Level 24 MMOL/L (21-32) Anion Gap 9 mmol/L (5-15) Blood Urea Nitrogen 32 mg/dL (7-18) H Creatinine 1.2 MG/DL (0.55-1.30) Estimat Glomerular Filtration Rate mL/min (>60) Glucose Level 205 MG/DL (74-106) #H Hemoglobin A1c 6.5 % (4.3-6.0) H Calcium Level 8.7 MG/DL (8.5-10.1) Lipase 44 U/L (73-393) L Test 10/25/18 05:45 Lactic Acid Level 3.10 mmol/L (0.66-2.22) H Current Medications Medications (Trade) Dose Ordered Sig/Itzel Route PRN Reason Start Time Stop Time Status Last Admin Dose Admin Acetaminophen (Tylenol) 650 mg Q4H PRN ORAL Mild Pain/Temp > 100.5 10/24/18 19:45 11/23/18 19:44 Albuterol/ Ipratropium (Albuterol/ Ipratropium) 3 ml Q4HRT PRN HHN Shortness of breath 10/24/18 15:00 10/29/18 14:59 Cefepime HCl 1 gm/ Dextrose 55 ml @ 110 mls/hr Q24H IVPB 10/25/18 09:00 11/01/18 08:59 10/25/18 09:05 Dextrose (Dextrose 50%) 25 ml Q30M PRN IV Hypoglycemia 10/24/18 14:45 11/23/18 14:44 Dextrose (Dextrose 50%) 50 ml Q30M PRN IV Hypoglycemia 10/24/18 14:45 11/23/18 14:44 Docusate Sodium (Colace) 100 mg THREE TIMES A DAY ORAL 10/24/18 18:00 11/23/18 17:59 Donepezil HCl (Aricept) 5 mg QHS ORAL 10/24/18 21:00 11/23/18 20:59 10/24/18 21:23 Heparin Sodium (Porcine) (Heparin 5000 units/ml) 5,000 units EVERY 12 HOURS SUBQ 10/24/18 21:00 11/23/18 20:59 Insulin Aspart (NovoLOG) BEFORE MEALS AND HS SUBQ 10/24/18 16:30 11/23/18 16:29 10/25/18 05:53 Multivitamins (Multivitamins) 1 tab DAILY ORAL 10/25/18 09:00 11/24/18 08:59 Ondansetron HCl (Zofran) 4 mg Q6H PRN IVP Nausea & Vomiting 10/24/18 14:30 11/23/18 14:29 Pantoprazole (Protonix) 40 mg DAILY ORAL 10/25/18 09:00 11/24/18 08:59 Patient Own Medication (Patient's Own Med) 1 ea DAILY ORAL 10/25/18 09:00 11/24/18 08:59 UNV Polyethylene Glycol (Miralax) 17 gm BEDTIME ORAL 10/24/18 21:00 11/23/18 20:59 10/24/18 21:23 Sennosides (Senokot) 8.6 mg DAILYPRN PRN ORAL Constipation 10/24/18 14:30 11/23/18 14:29 Sodium Hypochlorite (Dakin's Full Strength) 1 applic BEDTIME TOPIC 10/24/18 21:00 11/23/18 20:59 10/24/18 21:23 Sodium Chloride 1,000 ml @ 75 mls/hr [id number] IV 10/24/18 14:45 11/23/18 14:44 10/25/18 04:00 Tamsulosin HCl (Flomax) 0.4 mg BEDTIME ORAL 10/24/18 21:00 11/23/18 20:59 10/24/18 21:23 Vancomycin HCl (Vanco rx to dose) 1 ea DAILY PRN MISC Per rx protocol 10/24/18 19:30 11/23/18 19:29 Rigo Ames MD Oct 25, 2018 10:04
--- NOTE | 2018-10-25 10:32 | General Progress Note ---
Assessment/Plan Problem List: (1) Sepsis ICD Codes: A41.9 - Sepsis, unspecified organism SNOMED: 43768533 (2) Tachycardia ICD Codes: R00.0 - Tachycardia, unspecified SNOMED: 1369019 (3) GI bleed ICD Codes: K92.2 - Gastrointestinal hemorrhage, unspecified SNOMED: 02000093 (4) Coffee ground emesis ICD Codes: K92.0 - Hematemesis SNOMED: 29001941 (5) Fever ICD Codes: R50.9 - Fever, unspecified SNOMED: 499514093 (6) Pneumonia ICD Codes: J18.9 - Pneumonia, unspecified organism SNOMED: 928564658 (7) BPH (benign prostatic hyperplasia) ICD Codes: N40.0 - Benign prostatic hyperplasia without lower urinary tract symptoms SNOMED: 983873760 Status: progressing Assessment/Plan: sepsis pna no vomitting gi bleed aids cachexia multiple wounds Subjective ROS Limited/Unobtainable: Yes Allergies: Coded Allergies: CHEESE (Verified Allergy, Severe, 10/24/18) Objective Last 24 Hour Vital Signs Date Time Temp Pulse Resp B/P (MAP) Pulse Ox O2 Delivery O2 Flow Rate FiO2 10/25/18 08:00 98.1 98 23 96/58 (71) 98 10/25/18 08:00 Nasal Cannula 2.0 10/25/18 07:44 83 10/25/18 04:00 Nasal Cannula 2.0 10/25/18 04:00 99 10/25/18 04:00 97.9 99 22 105/62 (76) 97 10/25/18 01:35 97.8 96 22 112/50 (70) 94 10/25/18 00:00 98 10/25/18 00:00 Nasal Cannula 2.0 10/24/18 21:00 93 Nasal Cannula 2.0 28 10/24/18 20:00 Nasal Cannula 4.0 10/24/18 20:00 97.7 98 22 112/64 (80) 94 10/24/18 20:00 96 18 93 Nasal Cannula 2.0 28 10/24/18 19:07 98 10/24/18 16:00 97.2 101 22 100/63 (75) 95 10/24/18 15:46 105 10/24/18 12:27 Nasal Cannula 4.0 10/24/18 11:43 111 10/24/18 11:40 99.1 95 18 127/57 99 Nasal Cannula 4.0 10/24/18 11:40 97.7 109 22 108/65 (79) 98 10/24/18 11:22 99.1 95 18 127/57 99 Nasal Cannula 4.0 10/24/18 10:31 99.1 Intake and Output 10/24/18 10/25/18 19:00 07:00 Intake Total 210 ml 1600 ml Output Total 100 ml 50 ml Balance 110 ml 1550 ml Intake Oral 700 ml IV Total 210 ml 900 ml Output Urine Total 100 ml 50 ml # Voids 2 # Bowel Movements 1 Laboratory Tests 10/24/18 16:30: White Blood Count 21.6H, Red Blood Count 4.14L, Hemoglobin 13.8L, Hematocrit 40.8L, Mean Corpuscular Volume 99, Mean Corpuscular Hemoglobin 33.2H, Mean Corpuscular Hemoglobin Concent 33.7, Red Cell Distribution Width 12.2, Platelet Count 224, Mean Platelet Volume 6.3L, Neutrophils (%) (Auto) , Lymphocytes (%) ( Auto) , Monocytes (%) (Auto) , Eosinophils (%) (Auto) , Basophils (%) (Auto) , Differential Total Cells Counted 100, Neutrophils % (Manual) 76H, Lymphocytes % (Manual) 15L, Monocytes % (Manual) 4, Eosinophils % (Manual) 1, Basophils % ( Manual) 0, Band Neutrophils 4, Platelet Estimate Adequate, Platelet Morphology Normal, Macrocytosis 1+, Lactic Acid Level 3.10H 10/24/18 18:25: Urine Color Yellow, Urine Appearance Cloudy, Urine pH 6, Urine Specific [place] 1.020, Urine Protein 3+H, Urine Glucose (UA) 3+H, Urine Ketones 1+H, Urine Blood 5+H, Urine Nitrite Negative, Urine Bilirubin Negative, Urine Urobilinogen Normal, Urine Leukocyte Esterase 2+H, Urine RBC TntcH, Urine WBC TntcH, Urine Squamous Epithelial Cells Occasional, Urine Bacteria ModerateH 10/25/18 04:04: White Blood Count 14.6H, Red Blood Count 3.99L, Hemoglobin 13.1L, Hematocrit 39.4L, Mean Corpuscular Volume 99, Mean Corpuscular Hemoglobin 32.7H, Mean Corpuscular Hemoglobin Concent 33.1, Red Cell Distribution Width 12.3, Platelet Count 198, Mean Platelet Volume 6.4L, Neutrophils (%) (Auto) 77.9H, Lymphocytes (%) (Auto) 17.3L, Monocytes (%) (Auto) 4.6, Eosinophils (%) (Auto) 0.1, Basophils (%) (Auto) 0.1, Lactic Acid Level 3.00H, Prothrombin Time 11.3, Prothromb Time International Ratio 1.1, Activated Partial Thromboplast Time 30, Sodium Level 143, Potassium Level 4.1, Chloride Level 110H, Carbon Dioxide Level 24, Anion Gap 9, Blood Urea Nitrogen 32H, Creatinine 1.2, Estimat Glomerular Filtration Rate , Glucose Level 205#H, Hemoglobin A1c 6.5H, Calcium Level 8.7, Lipase 44L 10/25/18 05:45: Lactic Acid Level 3.10H Height (Feet): 6 Height (Inches): 1.00 Weight (Pounds): 161 EENT: PERRL/EOMI Neck: supple Cardiovascular: normal rate Respiratory/Chest: lungs clear Suresh Lindquist MD Oct 25, 2018 10:32
--- NOTE | 2018-10-25 11:06 | NUR ---
NURSE NOTES: left a message to dr pierce that this patient has been refusing labs, Xray abd and meds since this AM. awaits callback and new order.
--- NOTE | 2018-10-25 11:09 | Consultation ---
Consult Note Consult Note asked to eval for BP and fluid management Poor historian ER: This patient presents from a assisted facility. He has a history of dementia, HIV, diabetes. Per report the patient had an episode of emesis. The EMS report body aches. The patient himself has no specific complaints. He denies pain. He denies cough or congestion. He denies shortness of breath. He has no specific complaints. 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 Albumin bolus check renal parameters per orders midodrine for low bp Randal Matamoros MD Oct 25, 2018 11:09
[2018-10-25 11:24] LABS: ALANINE AMINOTRANSFERASE 21 U/L (12-78); ALBUMIN 2.7 G/DL (3.4-5.0); ALKALINE PHOSPHATASE 46 U/L (46-116); ASPARTATE AMINO TRANSFERASE 24 U/L (15-37); BILIRUBIN,DIRECT 0.1 MG/DL (0.0-0.3); BILIRUBIN,TOTAL 0.6 MG/DL (0.2-1.0); PHOSPHORUS 2.2 MG/DL (2.5-4.9)
--- NOTE | 2018-10-25 11:45 | NUR ---
NURSE NOTES: patient refused morning care, refused blood draw, refused AM meds and refused glucose check. dr pierce called back and ordered to call dr bryant instead.
[2018-10-25 12:00] VITALS: BP 98/54
--- NOTE | 2018-10-25 12:37 | Consultation ---
History of Present Illness General Date patient seen: Oct 25, 2018 Reason for Hospitalization: General Complaint Present Illness HPI 77 year old male assisted resident with multiple medical comorbidities presented with feeling weak, unwell, abnormal labs, noted to have lactic acidosis and requiring admission for work up and care. On admission noted to have multiple wounds requiring intervention. surgery called to evaluate and assist with care. patient seen, chart reviewed, patient examined. states he is hungry and wants gastelum and eggs. cannot recall when wounds formed and how long he has had them for. is unsure how they are being cared for. poor historian Allergies: Coded Allergies: CHEESE (Verified Allergy, Severe, 10/24/18) Medication History Scheduled Donepezil Hcl* (Donepezil Hcl*), 5 MG ORAL DAILY, (Reported) Emtricitabine* (Emtriva*), 200 MG ORAL DAILY, (Reported) Multivitamin With Minerals (Multivitamins With Minerals*), 1 TAB ORAL DAILY, ( Reported) Scheduled PRN Acetaminophen* (Acetaminophen 325MG Tablet*), 325 MG ORAL Q4H PRN for Mild Pain (Pain Scale 1-3), (Reported) Polyethylene Glycol 3350* (Polyethylene Glycol 3350*), 17 GM ORAL BEDTIME PRN for Constipation, (Reported) Miscellaneous Medications Bacitracin (Bacitracin), 1 EACH TP, (Reported) Cranberry Extract (Cranberry), 425 MG PO, (Reported) Heparin Sodium,Porcine/Ns/Pf (Heparin), 2,000 UNIT IV, (Reported) Sennosides (Senna), 8.6 MG PO, (Reported) Patient History Limited by: other History Provided By: Patient, Medical Record, PMD Healthcare decision maker LEILA PEREA Resuscitation status Full Code Advanced Directive on File Past Medical/Surgical History Past Medical/Surgical History: (1) GI bleed (2) Coffee ground emesis (3) Fever (4) Pneumonia (5) BPH (benign prostatic hyperplasia) (6) Tachycardia (7) Sepsis Review of Systems Review of Symptoms General ROS: no weight loss or fever Psychological ROS: no depression or mood changes, no memory loss Ophthalmic ROS: no visual changes or eye irritation ENT ROS: no nasal congestion, hearing loss, dizziness Allergy and Immunology ROS: no allergic symptoms or urticaria Hematological and Lymphatic ROS: no swollen glands, unusual bleeding or bruising Endocrine ROS: no polyuria, polydipsia, weight changes, temperature intolerance Respiratory ROS: no cough, shortness of breath, or wheezing Cardiovascular ROS: no chest pain or dyspnea on exertion Gastrointestinal ROS: denies abdominal pain, no bright red blood in stool. Musculoskeletal ROS: no myalgias or arthralgias Neurological ROS: no TIA or stroke symptoms Dermatological ROS: no new or changing skin lesions, rashes or pruritis Physical Exam Physical Exam General appearance: alert, cooperative, no distress, appears stated age Head: Normocephalic, without obvious abnormality, atraumatic Eyes: conjunctivae/corneas clear. PERRL, EOM's intact. Fundi benign Throat: Lips, mucosa, and tongue normal. Teeth and gums normal Neck: supple, symmetrical, trachea midline, no adenopathy, thyroid: not enlarged, symmetric, no tenderness/mass/nodules, no carotid bruit and no JVD Lungs: clear to auscultation bilaterally Heart: regular rate and rhythm, S1, S2 normal, no murmur, click, rub or gallop Abdomen: soft, non-tender. Bowel sounds normal. No masses, no organomegaly Extremities: extremities normal, atraumatic, no cyanosis or edema Pulses: 2+ and symmetric Skin: see photos Neurologic: Grossly normal Last 24 Hour Vital Signs Date Time Temp Pulse Resp B/P (MAP) Pulse Ox O2 Delivery O2 Flow Rate FiO2 10/25/18 12:00 Nasal Cannula 2.0 10/25/18 08:00 98.1 98 23 96/58 (71) 98 10/25/18 08:00 Nasal Cannula 2.0 10/25/18 07:44 83 10/25/18 04:00 Nasal Cannula 2.0 10/25/18 04:00 99 10/25/18 04:00 97.9 99 22 105/62 (76) 97 10/25/18 01:35 97.8 96 22 112/50 (70) 94 10/25/18 00:00 98 10/25/18 00:00 Nasal Cannula 2.0 10/24/18 21:00 93 Nasal Cannula 2.0 28 10/24/18 20:00 Nasal Cannula 4.0 10/24/18 20:00 97.7 98 22 112/64 (80) 94 10/24/18 20:00 96 18 93 Nasal Cannula 2.0 28 10/24/18 19:07 98 10/24/18 16:00 97.2 101 22 100/63 (75) 95 10/24/18 15:46 105 Intake and Output 10/24/18 10/25/18 19:00 07:00 Intake Total 210 ml 1600 ml Output Total 100 ml 50 ml Balance 110 ml 1550 ml Intake Oral 700 ml IV Total 210 ml 900 ml Output Urine Total 100 ml 50 ml # Voids 2 # Bowel Movements 1 Laboratory Tests Test 10/24/18 16:30 10/24/18 18:25 10/25/18 04:04 10/25/18 05:45 White Blood Count 21.6 K/UL (4.8-10.8) H 14.6 K/UL (4.8-10.8) H Red Blood Count 4.14 M/UL (4.70-6.10) L 3.99 M/UL (4.70-6.10) L Hemoglobin 13.8 G/DL (14.2-18.0) L 13.1 G/DL (14.2-18.0) L Hematocrit 40.8 % (42.0-52.0) L 39.4 % (42.0-52.0) L Mean Corpuscular Volume 99 FL (80-99) 99 FL (80-99) Mean Corpuscular Hemoglobin 33.2 PG (27.0-31.0) H 32.7 PG (27.0-31.0) H Mean Corpuscular Hemoglobin Concent 33.7 G/DL (32.0-36.0) 33.1 G/DL (32.0-36.0) Red Cell Distribution Width 12.2 % (11.6-14.8) 12.3 % (11.6-14.8) Platelet Count 224 K/UL (150-450) 198 K/UL (150-450) Mean Platelet Volume 6.3 FL (6.5-10.1) L 6.4 FL (6.5-10.1) L Neutrophils (%) (Auto) % (45.0-75.0) 77.9 % (45.0-75.0) H Lymphocytes (%) (Auto) % (20.0-45.0) 17.3 % (20.0-45.0) L Monocytes (%) (Auto) % (1.0-10.0) 4.6 % (1.0-10.0) Eosinophils (%) (Auto) % (0.0-3.0) 0.1 % (0.0-3.0) Basophils (%) (Auto) % (0.0-2.0) 0.1 % (0.0-2.0) Differential Total Cells Counted 100 Neutrophils % (Manual) 76 % (45-75) H Lymphocytes % (Manual) 15 % (20-45) L Monocytes % (Manual) 4 % (1-10) Eosinophils % (Manual) 1 % (0-3) Basophils % (Manual) 0 % (0-2) Band Neutrophils 4 % (0-8) Platelet Estimate Adequate Platelet Morphology Normal Macrocytosis 1+ Lactic Acid Level 3.10 mmol/L (0.4-2.0) H 3.00 mmol/L (0.4-2.0) H 3.10 mmol/L (0.66-2.22) H Urine Color Yellow Urine Appearance Cloudy Urine pH 6 (4.5-8.0) Urine Specific [place] 1.020 (1.005-1.035) Urine Protein 3+ (NEGATIVE) H Urine Glucose (UA) 3+ (NEGATIVE) H Urine Ketones 1+ (NEGATIVE) H Urine Blood 5+ (NEGATIVE) H Urine Nitrite Negative (NEGATIVE) Urine Bilirubin Negative (NEGATIVE) Urine Urobilinogen Normal MG/DL (0.0-1.0) Urine Leukocyte Esterase 2+ (NEGATIVE) H Urine RBC Tntc /HPF (0 - 0) H Urine WBC Tntc /HPF (0 - 0) H Urine Squamous Epithelial Cells Occasional /LPF Urine Bacteria Moderate /HPF (NONE) H Prothrombin Time 11.3 SEC (9.30-11.50) Prothromb Time International Ratio 1.1 (0.9-1.1) Activated Partial Thromboplast Time 30 SEC (23-33) Sodium Level 143 MMOL/L (136-145) Potassium Level 4.1 MMOL/L (3.5-5.1) Chloride Level 110 MMOL/L (98-107) H Carbon Dioxide Level 24 MMOL/L (21-32) Anion Gap 9 mmol/L (5-15) Blood Urea Nitrogen 32 mg/dL (7-18) H Creatinine 1.2 MG/DL (0.55-1.30) Estimat Glomerular Filtration Rate mL/min (>60) Glucose Level 205 MG/DL (74-106) #H Hemoglobin A1c 6.5 % (4.3-6.0) H Calcium Level 8.7 MG/DL (8.5-10.1) Phosphorus Level 2.2 MG/DL (2.5-4.9) L Magnesium Level 1.9 MG/DL (1.8-2.4) Total Bilirubin 0.6 MG/DL (0.2-1.0) Direct Bilirubin 0.1 MG/DL (0.0-0.3) Aspartate Amino Transf (AST/SGOT) 24 U/L (15-37) Alanine Aminotransferase (ALT/SGPT) 21 U/L (12-78) Alkaline Phosphatase 46 U/L (46-116) Total Protein 6.4 G/DL (6.4-8.2) Albumin 2.7 G/DL (3.4-5.0) L Lipase 44 U/L (73-393) L Test 10/25/18 11:50 10/25/18 12:15 Urine Random Sodium Pending Lactic Acid Level Pending Random Vancomycin Level Pending Microbiology Date/Time Source Procedure Growth Status 10/24/18 17:15 Nasal Nares - Final Complete 10/24/18 17:15 Nasal Nares - Final Complete 10/24/18 18:25 Urine,Clean Catch Urine Culture - Preliminary NO GROWTH Resulted Height (Feet): 6 Height (Inches): 1.00 Weight (Pounds): 161 Medications Current Medications Medications (Trade) Dose Ordered Sig/Itzel Route PRN Reason Start Time Stop Time Status Last Admin Dose Admin Acetaminophen (Tylenol) 650 mg Q4H PRN ORAL Mild Pain/Temp > 100.5 10/24/18 19:45 11/23/18 19:44 Albuterol/ Ipratropium (Albuterol/ Ipratropium) 3 ml Q4HRT PRN HHN Shortness of breath 10/24/18 15:00 10/29/18 14:59 Cefepime HCl 1 gm/ Dextrose 55 ml @ 110 mls/hr EVERY 12 HOURS IVPB 10/25/18 21:00 11/01/18 08:59 Dextrose (Dextrose 50%) 25 ml Q30M PRN IV Hypoglycemia 10/24/18 14:45 11/23/18 14:44 Dextrose (Dextrose 50%) 50 ml Q30M PRN IV Hypoglycemia 10/24/18 14:45 11/23/18 14:44 Docusate Sodium (Colace) 100 mg THREE TIMES A DAY ORAL 10/24/18 18:00 11/23/18 17:59 Heparin Sodium (Porcine) (Heparin 5000 units/ml) 5,000 units EVERY 12 HOURS SUBQ 10/24/18 21:00 11/23/18 20:59 Insulin Aspart (NovoLOG) BEFORE MEALS AND HS SUBQ 10/24/18 16:30 11/23/18 16:29 10/25/18 05:53 Multivitamins (Multivitamins) 1 tab DAILY ORAL 10/25/18 09:00 11/24/18 08:59 Ondansetron HCl (Zofran) 4 mg Q6H PRN IVP Nausea & Vomiting 10/24/18 14:30 11/23/18 14:29 Pantoprazole (Protonix) 40 mg DAILY ORAL 10/25/18 09:00 11/24/18 08:59 Patient Own Medication (Patient's Own Med) 1 ea DAILY ORAL 10/25/18 09:00 11/24/18 08:59 UNV Polyethylene Glycol (Miralax) 17 gm BEDTIME ORAL 10/24/18 21:00 11/23/18 20:59 10/24/18 21:23 Sennosides (Senokot) 8.6 mg DAILYPRN PRN ORAL Constipation 10/24/18 14:30 11/23/18 14:29 Sodium Hypochlorite (Dakin's Full Strength) 1 applic BEDTIME TOPIC 10/24/18 21:00 11/23/18 20:59 10/24/18 21:23 Sodium Chloride 1,000 ml @ 75 mls/hr [id number] IV 10/24/18 14:45 11/23/18 14:44 10/25/18 04:00 Tamsulosin HCl (Flomax) 0.4 mg BEDTIME ORAL 10/24/18 21:00 11/23/18 20:59 10/24/18 21:23 Vancomycin HCl (Vanco rx to dose) 1 ea DAILY PRN MISC Per rx protocol 10/24/18 19:30 11/23/18 19:29 Assessment/Plan Problem List: (1) GI bleed ICD Codes: K92.2 - Gastrointestinal hemorrhage, unspecified SNOMED: 41009656 (2) Coffee ground emesis ICD Codes: K92.0 - Hematemesis SNOMED: 67485774 (3) Fever ICD Codes: R50.9 - Fever, unspecified SNOMED: 766383326 (4) Pneumonia ICD Codes: J18.9 - Pneumonia, unspecified organism SNOMED: 393401947 (5) BPH (benign prostatic hyperplasia) ICD Codes: N40.0 - Benign prostatic hyperplasia without lower urinary tract symptoms SNOMED: 813388477 (6) Tachycardia ICD Codes: R00.0 - Tachycardia, unspecified SNOMED: 8104795 (7) Sepsis Assessment & Plan: tachycardic leukocytosis pna lactic acidosis iv fluid hydration trend labs will follow ICD Codes: A41.9 - Sepsis, unspecified organism SNOMED: 50828222 (8) Decubitus skin ulcer Assessment & Plan: Pt presented on admission with multiple pressure injuries. Staff on unit reports pt resistive to wound care and to being repositioned. Initially pt was resistive and attempted to hit staff but with encouragement pt apologized and consented to have staff evaluate wounds. Maroon area without induration or fluctuance noted to L thoracic area.(L)2cm x ( W)1cm. #2 areas of Unstageable pressure injuries noted to lumbar spine(proximal wound) (L)1cm x (W)0.9cm.100% yellow slough with marginal erythema noted.(inferior wound)(L)1cm x (W)1cm.Base of wound has 100% slough with marginal erythema.Periwound skin is pink. Unstageable pressure injury noted to L but in close proximity lumbar spine. Base of wound has 100% slough with marginal erythema.(L)0.4cm x (W)0.3cm. Non- blanchable erythema without induration periwound. Unstageable pressure injury sacrum.Base of wound has 100% slough with marginal erythema.(L)0.8cm x (W)0.9cm. Non-blanchable erythema without induration periwound. Partial thickness pressure injury noted to R trochanter. Base of wound moist - viable.(L)1.5cm x (W)0.5cm. Borders and periwound dark brown with dry peeling skin. Unstageable pressure injury with necrosis centrally with surrounding erythematous base. (+) maceration along edges.Periwound with dry ,brown peeling skin .No induration or erythema periwound. No odor noted.(L)9 cm x (W)7.5cm. Non-blanchable erythema without induration or fluctuance noted to L lateral malleolus. Pt educated on wound prevention. Pt educated of risks vs benefits on compliance with wound care and to being repositioned. Pt stated he was unaware of stages of wounds and expressed appreciation for wound care but still became agitated while being repositioned. Tx.Plan: Cleanse L trochanteric wound with Saline. Apply Therahoney. Apply Moisture Barrier to borders and periwound. Cover with Optifoam drsg Daily and prn. Cleanse wounds lumbar spine and sacral area with Saline. Apply Therahoney to each wound . Apply Cavilon Skin Barrier to borders of each wound. Cover wounds with Optifoam drsg. Change every 3 days and prn. Apply Cavilon Skin Barrier to L thoracic.Cover with Optifoam drsg. Change every 7 days and prn. Apply Cavilon Skin Barrier to both heels. Cover each heel with Optifoam drsg. Change every 7 days and prn. Apply Cavilon Skin Barrier to L lateral malleolus. Cover with Optifoam drsg. Change every 7 days and prn. Reposition at least every 2hours or as tolerated. Off-load heels with pillow. APM/MACKENZIE mattress overlay. ICD Codes: L89.90 - Pressure ulcer of unspecified site, unspecified stage SNOMED: 777196878 JerrybryonMichael Oct 25, 2018 12:37
--- NOTE | 2018-10-25 12:54 | NUR ---
NURSE NOTES: attempted to talk to the patient for morning care, patient stated to leave him alone and he needs some rest. patient pulled out his condom cath and attempted to put it back but patient refused.offered a urinal instead.will continue to monitor.
--- NOTE | 2018-10-25 12:57 | NUR ---
NURSE NOTES: left a message to dr bryant as per instructions by dr pierce that this patient has been refusing medications, procedure and morning care. awaits callback and new order.
--- NOTE | 2018-10-25 13:14 | NUR ---
CASE MANAGEMENT: INITIAL REVIEW 77 YO M JIMY FROM [facility] [place] CC: FLU LIKE SYMPTOMS PMHx: DEMENTIA. HIV. DM. CAD. SI:PNA. SEPSIS. T 99.1 HR 124 RR 18 B/P 105/71 SATS 95% ON 4L/NC WBC 16.1 BUN 39 CR 1.7 GLU 370 TOTAL CK 371 CKMB 4.7 IS: PEPCID IV X1 CEFEPIME IV X1 NS BOLUS X1 TYLENOL REC X1 CXR IMPRESSION: Patchy basilar interstitial densities nonspecific. PATIENT ADMITTED TO SDU 10/24/2018 @ 1035 DCP: PATIENT TO BE DISCHARGED TO HOME ONCE MEDICALLY CLEARED. PLAN OF CARE: ABD DIPIKA ST EVAL Addendum: 10/25/18 at 1329 by Shannon Bejarano CM INTERQUNATHALIE CRANE
[2018-10-25] MEDS ORDERED: Vancomycin 1.5gm Premix IVPB SCH (14:00)
[2018-10-25 16:00] VITALS: BP 100/62
[2018-10-25] MEDS: Ipratropium 0.02% Inh Soln 2.5ml UD HHN SCH ×2 (18:53→22:55)
--- NOTE | 2018-10-25 18:55 | NUR ---
NURSE NOTES: left a message to nico ortiz regarding his HIV medication Odefsey. awaits callback from this family member to bring it over to this unit so that we can start administering it.
--- NOTE | 2018-10-25 19:10 | NUR ---
NURSE NOTES: Pt report was received from Maryam MENDEZ HARI. Pt is alert and oriented times 3 and is able to respond appropriately to simple questions. Pt appears to be stable resting in bed. pt has a manager monitoring on displaying A- Fib at this moment, MD Abdullahi is aware. no other signs symptoms of cardiac distress noted. Pt is on 2L NC and is satting at 98%, no signs/ symptoms of resp distress noted. Pt refused condom cath. All safety precautions are active, bed locked and low, bed armed, bed rails up times 3. will continue plan of care.
--- NOTE | 2018-10-25 19:27 | NUR ---
HAND-OFF: Report given to samaria omalley.
--- NOTE | 2018-10-25 19:37 | NUR ---
NURSE NOTES: Pt refused to have lab drawn.
--- NOTE | 2018-10-25 19:47 | NUR ---
NURSE NOTES: Pt Refused Bladder Scan. aware.
[2018-10-25 20:00] VITALS: BP 102/62
[2018-10-25] MEDS: Tamsulosin 0.4mg cap ORAL SCH (20:43)
[2018-10-25] MEDS: Miralax 17gm pkt ORAL SCH (20:43)
[2018-10-25] MEDS: Dakin's 0.5% (Full Strength) 16oz TOPIC SCH (20:44)
--- NOTE | 2018-10-25 21:46 | Cardiology Report ---
APPROVED REPORT EKG Measurement Heart [id number] Sinus tachycardia Left axis deviation Low voltage QRS Inferior infarct, age undetermined Abnormal ECG
--- NOTE | 2018-10-25 22:50 | Pulmonology Progress Note ---
Assessment/Plan Assessment/Plan Pulmonary Consultation HPI Patient is a 77 year old man with history of HIV, Dementia, Diabetes, CAD who presents from a [facility] facility after a reported episode of emesis. Noted to have sinus tachycardia and evidence of pneumonia in the ED. The patient himself has no specific complaints. He denies pain. He denies cough or congestion. He denies shortness of breath. He has no specific complaints. Feels improved. Allergies: No Known Allergies Past Medical History: DM, CAD, dementia, HIV All Other Systems: negative except mentioned in HPI Physical Exam Vital Signs Noted General Appearance: no apparent distress, alert, GCS 15, non-toxic, chronically ill appearing Head: normocephalic, atraumatic Eyes: bilateral eye normal inspection, bilateral eye PERRL ENT: hearing grossly normal, normal pharynx, no angioedema, normal voice Neck: normal inspection, full range of motion Respiratory: chest non-tender, lungs clear, normal breath sounds, no respiratory distress, no retraction, no accessory muscle use, speaking full sentences Cardiovascular: no edema, tachycardia, HS normal Gastrointestinal: normal bowel sounds, non tender, soft, non-distended, no guarding, no rebound Rectal: deferred Musculoskeletal: normal inspection, normal range of motion, non-tender Neurologic: alert, responsive, motor strength/tone normal, speech normal Impression: Pneumonia Tachycardia, Fever Sepsis HIV Dementia Diabetes - glucose 342 CAD Plan IV Antibiotics per ID IVF PRN ST eval swallow Protonix PPX LE dupplex HHN O2 PRN EKG: Rate: tachycardiac - S.tachycardia ST Segments: no acute changes Chest X-Ray: no pneumothorax, other - LLL opacity Subjective ROS Limited/Unobtainable: No Allergies: Coded Allergies: CHEESE (Verified Allergy, Severe, 10/24/18) Objective Last 24 Hour Vital Signs Date Time Temp Pulse Resp B/P (MAP) Pulse Ox O2 Delivery O2 Flow Rate FiO2 10/25/18 20:00 Nasal Cannula 2.0 10/25/18 20:00 98.1 122 20 102/62 (75) 96 10/25/18 19:12 100 10/25/18 18:57 121 20 97 Nasal Cannula 2.0 28 10/25/18 18:53 118 20 98 Room Air 21 10/25/18 18:53 97 Nasal Cannula 2.0 28 10/25/18 16:00 98.1 112 24 100/62 (75) 95 10/25/18 16:00 Nasal Cannula 2.0 10/25/18 15:27 105 10/25/18 12:39 99 Nasal Cannula 2.0 28 10/25/18 12:39 122 20 99 Nasal Cannula 2.0 28 10/25/18 12:00 Nasal Cannula 2.0 10/25/18 12:00 97.2 111 24 98/54 (69) 95 10/25/18 11:31 115 10/25/18 08:00 98.1 98 23 96/58 (71) 98 10/25/18 08:00 Nasal Cannula 2.0 10/25/18 07:44 83 10/25/18 04:00 Nasal Cannula 2.0 10/25/18 04:00 99 10/25/18 04:00 97.9 99 22 105/62 (76) 97 10/25/18 01:35 97.8 96 22 112/50 (70) 94 10/25/18 00:00 98 10/25/18 00:00 Nasal Cannula 2.0 Intake and Output 10/24/18 10/25/18 19:00 07:00 Intake Total 210 ml 1600 ml Output Total 100 ml 50 ml Balance 110 ml 1550 ml Intake Oral 700 ml IV Total 210 ml 900 ml Output Urine Total 100 ml 50 ml # Voids 2 # Bowel Movements 1 Microbiology Date/Time Source Procedure Growth Status 10/24/18 17:15 Nasal Nares - Final Complete 10/24/18 17:15 Nasal Nares - Final Complete 10/24/18 18:25 Urine,Clean Catch Urine Culture - Preliminary NO GROWTH Resulted 10/24/18 09:15 Urine,Clean Catch Urine Culture - Preliminary Gram Negative Shahram Resulted 10/24/18 09:15 Rectum Received Laboratory Tests 10/25/18 04:04: White Blood Count 14.6H, Red Blood Count 3.99L, Hemoglobin 13.1L, Hematocrit 39.4L, Mean Corpuscular Volume 99, Mean Corpuscular Hemoglobin 32.7H, Mean Corpuscular Hemoglobin Concent 33.1, Red Cell Distribution Width 12.3, Platelet Count 198, Mean Platelet Volume 6.4L, Neutrophils (%) (Auto) 77.9H, Lymphocytes (%) (Auto) 17.3L, Monocytes (%) (Auto) 4.6, Eosinophils (%) (Auto) 0.1, Basophils (%) (Auto) 0.1, Prothrombin Time 11.3, Prothromb Time International Ratio 1.1, Activated Partial Thromboplast Time 30, Sodium Level 143, Potassium Level 4.1, Chloride Level 110H, Carbon Dioxide Level 24, Anion Gap 9, Blood Urea Nitrogen 32H, Creatinine 1.2, Estimat Glomerular Filtration Rate , Glucose Level 205#H, Hemoglobin A1c 6.5H, Lactic Acid Level 3.00H, Calcium Level 8.7, Phosphorus Level 2.2L, Magnesium Level 1.9, Total Bilirubin 0.6, Direct Bilirubin 0.1, Aspartate Amino Transf (AST/SGOT) 24, Alanine Aminotransferase ( ALT/SGPT) 21, Alkaline Phosphatase 46, Total Protein 6.4, Albumin 2.7L, Lipase 44L 10/25/18 05:45: Lactic Acid Level 3.10H 10/25/18 11:50: Urine Random Sodium 106 10/25/18 12:15: Lactic Acid Level 1.50, Random Vancomycin Level 8.4 Current Medications Medications (Trade) Dose Ordered Sig/Itzel Route PRN Reason Start Time Stop Time Status Last Admin Dose Admin Acetaminophen (Tylenol) 650 mg Q4H PRN ORAL Mild Pain/Temp > 100.5 10/24/18 19:45 11/23/18 19:44 Cefepime HCl 1 gm/ Dextrose 55 ml @ 110 mls/hr EVERY 12 HOURS IVPB 10/25/18 21:00 11/01/18 08:59 Dextrose (Dextrose 50%) 25 ml Q30M PRN IV Hypoglycemia 10/24/18 14:45 11/23/18 14:44 Dextrose (Dextrose 50%) 50 ml Q30M PRN IV Hypoglycemia 10/24/18 14:45 11/23/18 14:44 Diltiazem HCl (Cardizem) 10 mg Q4H PRN IVP For HR > 120 10/25/18 21:48 11/24/18 21:47 Docusate Sodium (Colace) 100 mg THREE TIMES A DAY ORAL 10/24/18 18:00 11/23/18 17:59 Heparin Sodium (Porcine) (Heparin 5000 units/ml) 5,000 units EVERY 12 HOURS SUBQ 10/24/18 21:00 11/23/18 20:59 Insulin Aspart (NovoLOG) BEFORE MEALS AND HS SUBQ 10/24/18 16:30 11/23/18 16:29 10/25/18 17:35 Ipratropium Recluse (Atrovent) 500 mcg Q4HRT HHN 10/25/18 19:00 10/30/18 18:59 10/25/18 18:53 Multivitamins (Multivitamins) 1 tab DAILY ORAL 10/25/18 09:00 11/24/18 08:59 Ondansetron HCl (Zofran) 4 mg Q6H PRN IVP Nausea & Vomiting 10/24/18 14:30 11/23/18 14:29 Pantoprazole (Protonix) 40 mg DAILY ORAL 10/25/18 09:00 11/24/18 08:59 Patient Own Medication (Patient's Own Med) 1 ea DAILY ORAL 10/25/18 09:00 11/24/18 08:59 UNV Polyethylene Glycol (Miralax) 17 gm BEDTIME ORAL 10/24/18 21:00 11/23/18 20:59 10/24/18 21:23 Sennosides (Senokot) 8.6 mg DAILYPRN PRN ORAL Constipation 10/24/18 14:30 11/23/18 14:29 Sodium Hypochlorite (Dakin's Full Strength) 1 applic BEDTIME TOPIC 10/24/18 21:00 11/23/18 20:59 10/24/18 21:23 Sodium Chloride 1,000 ml @ 75 mls/hr [id number] IV 10/24/18 14:45 11/23/18 14:44 10/25/18 17:34 Tamsulosin HCl (Flomax) 0.4 mg BEDTIME ORAL 10/24/18 21:00 11/23/18 20:59 10/24/18 21:23 Vancomycin HCl (Vanco rx to dose) 1 ea DAILY PRN MISC Per rx protocol 10/24/18 19:30 11/23/18 19:29 Vancomycin HCl/ Dextrose 275 ml @ 137.5 mls/ hr Q24H IVPB 10/25/18 14:00 10/30/18 13:59 10/25/18 14:32 Rasta Candelario MD Oct 25, 2018 22:50
[2018-10-26] VITALS: BP 110/69
[2018-10-26] MEDS: Ipratropium 0.02% Inh Soln 2.5ml UD HHN SCH ×6 (02:55→22:33)
[2018-10-26] MEDS: dilTIAZem HCl 25mg/5ml Inj IVP PRN ×2 (03:05→08:17)
[2018-10-26 04:00] VITALS: BP 129/69
[2018-10-26 05:26] LABS: EOSINOPHILS % (AUTO) 0.1 % (0.0-3.0); HEMATOCRIT 42.8 % (42.0-52.0); HEMOGLOBIN 14.1 G/DL (14.2-18.0); LYMPHOCYTES % (AUTO) 15.2 % (20.0-45.0); MEAN CORPUSCULAR VOLUME 101 FL (80-99); MONOCYTES % (AUTO) 5.8 % (1.0-10.0); NEUTROPHILS % (AUTO) 77.9 % (45.0-75.0); PLATELET COUNT 204 K/UL (150-450); RED BLOOD COUNT 4.26 M/UL (4.70-6.10); WHITE BLOOD COUNT 13.6 K/UL (4.8-10.8)
[2018-10-26] MEDS: NovoLOG Insulin Flexpen SUBQ SCH ×4 (05:56→20:35)
[2018-10-26 06:47] LABS: ALANINE AMINOTRANSFERASE 12 U/L (12-78); ALBUMIN 2.7 G/DL (3.4-5.0); ALBUMIN/GLOBULIN RATIO 0.7 (1.0-2.7); ALKALINE PHOSPHATASE 54 U/L (46-116); ANION GAP 11 mmol/L (5-15); ASPARTATE AMINO TRANSFERASE 37 U/L (15-37); BILIRUBIN,TOTAL 0.9 MG/DL (0.2-1.0); BLOOD UREA NITROGEN 22 mg/dL (7-18); CALCIUM 8.9 MG/DL (8.5-10.1); CARBON DIOXIDE 22 MMOL/L (21-32); CHLORIDE 107 MMOL/L (98-107); CHOLESTEROL 123 MG/DL (< 200); FERRITIN 285 NG/ML (8-388); HDL CHOLESTEROL 27 MG/DL (40-60); POTASSIUM 3.8 MMOL/L (3.5-5.1); SODIUM 140 MMOL/L (136-145); TRIGLYCERIDES 113 MG/DL (30-150)
--- NOTE | 2018-10-26 06:54 | NUR ---
RADIOLOGY DEPT., PLS NOTE LATE ENTRY. PT REFUSED X-RAY EXAM TWICE, ASSIGNED NURSE NOTIFIED.ABHI
--- NOTE | 2018-10-26 07:10 | NUR ---
NURSE NOTES: Pt received from Peter Riddle RN in stable condition with no cardiopulmonary distress noted. Pt is awake in bed, AAOx2 on 2L O2 via NC, hooked to library monitor- currently A-fib at a rate of 105bpm. Skin alterations noted. Pt has RAC 20g IV. Urinal present at bedside. Bed is in lowest position with alarm on, side rails up x 2, call light within reach. Will continue to monitor pt.
--- NOTE | 2018-10-26 07:10 | NUR ---
HAND-OFF: Report given to Lisa MENDEZ DOU.
[2018-10-26 07:43] LABS: PHOSPHORUS 1.8 MG/DL (2.5-4.9)
[2018-10-26 08:00] VITALS: BP 115/84
[2018-10-26] MEDS: Docusate 100mg cap ORAL SCH ×3 (08:15→17:48)
[2018-10-26] MEDS: Cefepime HCl 1 GM in D5W 55 ML IVPB SCH ×2 (08:16→20:31)
[2018-10-26] MEDS: Heparin 5000 units/ml inj SUBQ SCH ×2 (08:19→20:33)
--- NOTE | 2018-10-26 10:00 | Infectious Diseases Prog Note ---
Assessment/Plan Assessment/Plan IMPRESSION: Sepsis improving UTI also, pneumonia, HIV lactic acidosis, Acute renal failure improving, diabetes mellitus with hyperglycemia, Alzheimer dementia. RECOMMENDATION: Discontinue IV Vancomycin continue cefepime. Restart on HIV treatment ([place]) Subjective ROS Limited/Unobtainable: No Respiratory: Reports: no symptoms Gastrointestinal/Abdominal: Reports: no symptoms Genitourinary: Reports: no symptoms Allergies: Coded Allergies: CHEESE (Verified Allergy, Severe, 10/24/18) Objective Vital Signs Last 24 Hour Vital Signs Date Time Temp Pulse Resp B/P (MAP) Pulse Ox O2 Delivery O2 Flow Rate FiO2 10/26/18 08:17 130 115/84 10/26/18 08:00 98.1 130 19 115/84 (94) 96 10/26/18 07:43 104 10/26/18 07:36 Room Air 10/26/18 07:36 Room Air 10/26/18 07:00 98 Room Air 10/26/18 04:00 Nasal Cannula 2.0 10/26/18 04:00 98.4 109 19 129/69 (89) 98 10/26/18 03:50 116 10/26/18 03:05 134 116/67 10/26/18 02:55 Room Air 10/26/18 02:55 Room Air 10/26/18 00:00 98.3 123 20 110/69 (83) 98 10/26/18 00:00 Nasal Cannula 2.0 10/25/18 23:26 113 10/25/18 22:55 Room Air 10/25/18 22:55 Room Air 10/25/18 20:00 Nasal Cannula 2.0 10/25/18 20:00 98.1 122 20 102/62 (75) 96 10/25/18 19:12 100 10/25/18 18:57 121 20 97 Nasal Cannula 2.0 10/25/18 18:53 118 20 98 Room Air 10/25/18 18:53 97 Nasal Cannula 2.0 10/25/18 16:00 98.1 112 24 100/62 (75) 95 10/25/18 16:00 Nasal Cannula 2.0 10/25/18 15:27 105 10/25/18 12:39 99 Nasal Cannula 2.0 10/25/18 12:39 122 20 99 Nasal Cannula 2.0 28 10/25/18 12:00 Nasal Cannula 2.0 10/25/18 12:00 97.2 111 24 98/54 (69) 95 10/25/18 11:31 115 Height (Feet): 6 Height (Inches): 1.00 Weight (Pounds): 161 HEENT: mucous membranes moist Respiratory/Chest: lungs clear, normal breath sounds Cardiovascular: normal rate Abdomen: soft, non tender Extremities: no edema Neurologic/Psychiatric: alert, responsive Musculoskeletal: atrophy Microbiology Date/Time Source Procedure Growth Status 10/24/18 09:15 Blood Blood Culture - Preliminary NO GROWTH AFTER 24 HOURS Resulted 10/24/18 09:15 Blood Blood Culture - Preliminary NO GROWTH AFTER 24 HOURS Resulted 10/24/18 17:15 Nasal Nares - Final Complete 10/24/18 17:15 Nasal Nares - Final Complete 10/24/18 18:25 Urine,Clean Catch Urine Culture - Preliminary NO GROWTH AFTER 24 HOURS Resulted 10/24/18 09:15 Urine,Clean Catch Urine Culture - Preliminary Proteus Mirabilis Resulted 10/24/18 09:15 Rectum VRE Culture - Final NO VANCOMYCIN RESISTANT ENTEROCOCCUS ... Complete 10/24/18 09:15 Rectum - Final NO CARBAPENEM-RESISTANT ENTEROBACTERI... Complete Laboratory Tests Test 10/25/18 11:50 10/25/18 12:15 10/26/18 04:00 Urine Random Sodium 106 mmol/L (20-110) Lactic Acid Level 1.50 mmol/L (0.4-2.0) Random Vancomycin Level 8.4 ug/mL White Blood Count 13.6 K/UL (4.8-10.8) H Red Blood Count 4.26 M/UL (4.70-6.10) L Hemoglobin 14.1 G/DL (14.2-18.0) L Hematocrit 42.8 % (42.0-52.0) Mean Corpuscular Volume 101 FL (80-99) H Mean Corpuscular Hemoglobin 33.0 PG (27.0-31.0) H Mean Corpuscular Hemoglobin Concent 32.8 G/DL (32.0-36.0) Red Cell Distribution Width 13.0 % (11.6-14.8) Platelet Count 204 K/UL (150-450) Mean Platelet Volume 6.6 FL (6.5-10.1) Neutrophils (%) (Auto) 77.9 % (45.0-75.0) H Lymphocytes (%) (Auto) 15.2 % (20.0-45.0) L Monocytes (%) (Auto) 5.8 % (1.0-10.0) Eosinophils (%) (Auto) 0.1 % (0.0-3.0) Basophils (%) (Auto) 1.0 % (0.0-2.0) Sodium Level 140 MMOL/L (136-145) Potassium Level 3.8 MMOL/L (3.5-5.1) Chloride Level 107 MMOL/L (98-107) Carbon Dioxide Level 22 MMOL/L (21-32) Anion Gap 11 mmol/L (5-15) Blood Urea Nitrogen 22 mg/dL (7-18) H Creatinine 1.0 MG/DL (0.55-1.30) Estimat Glomerular Filtration Rate mL/min (>60) Glucose Level 181 MG/DL (74-106) H Hemoglobin A1c 6.6 % (4.3-6.0) H Uric Acid 4.3 MG/DL (2.6-7.2) Calcium Level 8.9 MG/DL (8.5-10.1) Phosphorus Level 1.8 MG/DL (2.5-4.9) L Magnesium Level 1.8 MG/DL (1.8-2.4) Ferritin 285 NG/ML (8-388) Total Bilirubin 0.9 MG/DL (0.2-1.0) Gamma Glutamyl Transpeptidase 20 U/L (5-85) Aspartate Amino Transf (AST/SGOT) 37 U/L (15-37) Alanine Aminotransferase (ALT/SGPT) 12 U/L (12-78) Alkaline Phosphatase 54 U/L (46-116) Troponin I 0.000 ng/mL (0.000-0.056) C-Reactive Protein, Quantitative 17.1 mg/dL (0.00-0.90) H Pro-B-Type Natriuretic Peptide 4057 pg/mL (0-125) H Total Protein 6.4 G/DL (6.4-8.2) Albumin 2.7 G/DL (3.4-5.0) L Globulin 3.7 g/dL Albumin/Globulin Ratio 0.7 (1.0-2.7) L Triglycerides Level 113 MG/DL (30-150) Cholesterol Level 123 MG/DL (< 200) LDL Cholesterol 77 mg/dL (<100) HDL Cholesterol 27 MG/DL (40-60) L Cholesterol/HDL Ratio 4.6 (3.3-4.4) H Vitamin B12 Level 326 PG/ML (193-986) Folate 6.9 NG/ML (8.6-58.9) L Thyroid Stimulating Hormone (TSH) 0.588 uiU/mL (0.358-3.740) Current Medications Medications (Trade) Dose Ordered Sig/Itzel Route PRN Reason Start Time Stop Time Status Last Admin Dose Admin Acetaminophen (Tylenol) 650 mg Q4H PRN ORAL Mild Pain/Temp > 100.5 10/24/18 19:45 11/23/18 19:44 Cefepime HCl 1 gm/ Dextrose 55 ml @ 110 mls/hr EVERY 12 HOURS IVPB 10/25/18 21:00 11/01/18 08:59 10/26/18 08:16 Dextrose (Dextrose 50%) 25 ml Q30M PRN IV Hypoglycemia 10/24/18 14:45 11/23/18 14:44 Dextrose (Dextrose 50%) 50 ml Q30M PRN IV Hypoglycemia 10/24/18 14:45 11/23/18 14:44 Diltiazem HCl (Cardizem) 10 mg Q4H PRN IVP For HR > 120 10/25/18 21:48 11/24/18 21:47 10/26/18 08:17 Docusate Sodium (Colace) 100 mg THREE TIMES A DAY ORAL 10/24/18 18:00 11/23/18 17:59 10/26/18 08:15 Folic Acid (Folate) 3 mg DAILY ORAL 10/26/18 09:30 11/25/18 09:29 10/26/18 09:50 Heparin Sodium (Porcine) (Heparin 5000 units/ml) 5,000 units EVERY 12 HOURS SUBQ 10/24/18 21:00 11/23/18 20:59 10/26/18 08:19 Insulin Aspart (NovoLOG) BEFORE MEALS AND HS SUBQ 10/24/18 16:30 11/23/18 16:29 10/26/18 05:56 Ipratropium Marion (Atrovent) 500 mcg Q4HRT HHN 10/25/18 19:00 10/30/18 18:59 10/25/18 18:53 Multivitamins (Multivitamins) 1 tab DAILY ORAL 10/25/18 09:00 11/24/18 08:59 10/26/18 08:15 Ondansetron HCl (Zofran) 4 mg Q6H PRN IVP Nausea & Vomiting 10/24/18 14:30 11/23/18 14:29 Pantoprazole (Protonix) 40 mg DAILY ORAL 10/25/18 09:00 11/24/18 08:59 10/26/18 08:16 Patient Own Medication (Patient's Own Med) 1 ea DAILY ORAL 10/25/18 09:00 11/24/18 08:59 UNV Polyethylene Glycol (Miralax) 17 gm BEDTIME ORAL 10/24/18 21:00 11/23/18 20:59 10/24/18 21:23 Potassium Phosphate 20 mm/ Sodium Chloride 281.6667 ml @ 46.944 m... ONCE ONCE IV 10/26/18 11:00 10/26/18 16:59 Sennosides (Senokot) 8.6 mg DAILYPRN PRN ORAL Constipation 10/24/18 14:30 11/23/18 14:29 Sodium Hypochlorite (Dakin's Full Strength) 1 applic BEDTIME TOPIC 10/24/18 21:00 11/23/18 20:59 10/24/18 21:23 Sodium Chloride 1,000 ml @ 75 mls/hr [id number] IV 10/24/18 14:45 11/23/18 14:44 10/26/18 05:54 Tamsulosin HCl (Flomax) 0.4 mg BEDTIME ORAL 10/24/18 21:00 11/23/18 20:59 10/24/18 21:23 Vancomycin HCl (Vanco rx to dose) 1 ea DAILY PRN MISC Per rx protocol 10/24/18 19:30 11/23/18 19:29 Vancomycin HCl/ Dextrose 275 ml @ 137.5 mls/ hr Q24H IVPB 10/25/18 14:00 10/30/18 13:59 10/25/18 14:32 Rigo Ames MD Oct 26, 2018 10:00
--- NOTE | 2018-10-26 10:54 | GI Progress Note ---
Assessment/Plan Problems: (1) Coffee ground emesis ICD Codes: K92.0 - Hematemesis SNOMED: 70204295 (2) GI bleed ICD Codes: K92.2 - Gastrointestinal hemorrhage, unspecified SNOMED: 35365976 (3) Sepsis ICD Codes: A41.9 - Sepsis, unspecified organism SNOMED: 44812636 Status: stable, unchanged Status Narrative Discussed with Dr. Mendoza. Assessment/Plan no recurrent vomiting poor po intake ppi stable H&H no plans for EGD or colonoscopy at this time The patient was seen and examined at bedside and all new and available data was reviewed in the patients chart. I agree with the above findings, impression and plan. (Patient seen earlier today. Signature stamp does not reflect patient encounter time.). - Fernie Mendoza MD Subjective Gastrointestinal/Abdominal: Reports: no symptoms Objective Last 24 Hour Vital Signs Date Time Temp Pulse Resp B/P (MAP) Pulse Ox O2 Delivery O2 Flow Rate FiO2 10/26/18 10:31 Room Air 10/26/18 10:31 Room Air 10/26/18 08:17 130 115/84 10/26/18 08:00 98.1 130 19 115/84 (94) 96 10/26/18 08:00 Nasal Cannula 2.0 10/26/18 07:43 104 10/26/18 07:36 Room Air 10/26/18 07:36 Room Air 10/26/18 07:00 98 Room Air 10/26/18 04:00 Nasal Cannula 2.0 10/26/18 04:00 98.4 109 19 129/69 (89) 98 10/26/18 03:50 116 10/26/18 03:05 134 116/67 10/26/18 02:55 Room Air 10/26/18 02:55 Room Air 10/26/18 00:00 98.3 123 20 110/69 (83) 98 10/26/18 00:00 Nasal Cannula 2.0 10/25/18 23:26 113 10/25/18 22:55 Room Air 21 10/25/18 22:55 Room Air 21 10/25/18 20:00 Nasal Cannula 2.0 10/25/18 20:00 98.1 122 20 102/62 (75) 96 10/25/18 19:12 100 10/25/18 18:57 121 20 97 Nasal Cannula 2.0 28 10/25/18 18:53 118 20 98 Room Air 21 10/25/18 18:53 97 Nasal Cannula 2.0 10/25/18 16:00 98.1 112 24 100/62 (75) 95 10/25/18 16:00 Nasal Cannula 2.0 10/25/18 15:27 105 10/25/18 12:39 99 Nasal Cannula 2.0 10/25/18 12:39 122 20 99 Nasal Cannula 2.0 28 10/25/18 12:00 Nasal Cannula 2.0 10/25/18 12:00 97.2 111 24 98/54 (69) 95 10/25/18 11:31 115 Intake and Output 10/25/18 10/26/18 18:59 06:59 Intake Total 1510.0 ml 825 ml Output Total 250 ml Balance 1260.0 ml 825 ml Intake Oral 450 ml IV Total 1060.0 ml 825 ml Output Urine Total 250 ml # Voids 1 # Bowel Movements 4 4 Laboratory Tests Test 10/25/18 11:50 10/25/18 12:15 10/26/18 04:00 Urine Random Sodium 106 mmol/L (20-110) Lactic Acid Level 1.50 mmol/L (0.4-2.0) Random Vancomycin Level 8.4 ug/mL White Blood Count 13.6 K/UL (4.8-10.8) H Red Blood Count 4.26 M/UL (4.70-6.10) L Hemoglobin 14.1 G/DL (14.2-18.0) L Hematocrit 42.8 % (42.0-52.0) Mean Corpuscular Volume 101 FL (80-99) H Mean Corpuscular Hemoglobin 33.0 PG (27.0-31.0) H Mean Corpuscular Hemoglobin Concent 32.8 G/DL (32.0-36.0) Red Cell Distribution Width 13.0 % (11.6-14.8) Platelet Count 204 K/UL (150-450) Mean Platelet Volume 6.6 FL (6.5-10.1) Neutrophils (%) (Auto) 77.9 % (45.0-75.0) H Lymphocytes (%) (Auto) 15.2 % (20.0-45.0) L Monocytes (%) (Auto) 5.8 % (1.0-10.0) Eosinophils (%) (Auto) 0.1 % (0.0-3.0) Basophils (%) (Auto) 1.0 % (0.0-2.0) Sodium Level 140 MMOL/L (136-145) Potassium Level 3.8 MMOL/L (3.5-5.1) Chloride Level 107 MMOL/L (98-107) Carbon Dioxide Level 22 MMOL/L (21-32) Anion Gap 11 mmol/L (5-15) Blood Urea Nitrogen 22 mg/dL (7-18) H Creatinine 1.0 MG/DL (0.55-1.30) Estimat Glomerular Filtration Rate mL/min (>60) Glucose Level 181 MG/DL (74-106) H Hemoglobin A1c 6.6 % (4.3-6.0) H Uric Acid 4.3 MG/DL (2.6-7.2) Calcium Level 8.9 MG/DL (8.5-10.1) Phosphorus Level 1.8 MG/DL (2.5-4.9) L Magnesium Level 1.8 MG/DL (1.8-2.4) Ferritin 285 NG/ML (8-388) Total Bilirubin 0.9 MG/DL (0.2-1.0) Gamma Glutamyl Transpeptidase 20 U/L (5-85) Aspartate Amino Transf (AST/SGOT) 37 U/L (15-37) Alanine Aminotransferase (ALT/SGPT) 12 U/L (12-78) Alkaline Phosphatase 54 U/L (46-116) Troponin I 0.000 ng/mL (0.000-0.056) C-Reactive Protein, Quantitative 17.1 mg/dL (0.00-0.90) H Pro-B-Type Natriuretic Peptide 4057 pg/mL (0-125) H Total Protein 6.4 G/DL (6.4-8.2) Albumin 2.7 G/DL (3.4-5.0) L Globulin 3.7 g/dL Albumin/Globulin Ratio 0.7 (1.0-2.7) L Triglycerides Level 113 MG/DL (30-150) Cholesterol Level 123 MG/DL (< 200) LDL Cholesterol 77 mg/dL (<100) HDL Cholesterol 27 MG/DL (40-60) L Cholesterol/HDL Ratio 4.6 (3.3-4.4) H Vitamin B12 Level 326 PG/ML (193-986) Folate 6.9 NG/ML (8.6-58.9) L Thyroid Stimulating Hormone (TSH) 0.588 uiU/mL (0.358-3.740) Height (Feet): 6 Height (Inches): 1.00 Weight (Pounds): 161 General Appearance: no apparent distress, alert Cardiovascular: normal rate Respiratory/Chest: normal breath sounds, no respiratory distress Abdominal Exam: normal bowel sounds, non tender, soft, GT site - c/d/i Extremities: non-tender Zak Pink NP Oct 26, 2018 10:54
[2018-10-26] MEDS ORDERED: Potassium Phosphate 20 MM in NS 275 ML IV ONE (11:00)
--- NOTE | 2018-10-26 11:22 | NUR ---
RD ASSESSMENT & RECOMMENDATIONS SEE CARE ACTIVITY FOR COMPLETE ASSESSMENT DAILY ESTIMATED NEEDS: Needs based on Wound, HIV, Underweight, sepsis/ 60kg 30-35 kcals/kg 3801-1301 total kcals 1.25-2.0 g protein/kg 75-120 g total protein 25-30 mL/kg 5438-0529 total fluid mLs NUTRITION DIAGNOSIS: Increased kcal/prot intake needs R/T wound healing, sepsis, underweight status as evidenced by admitted w/ right hip stage 3 healing decubitus ulcer and left hip large unstageable decubitus ulcer identified with black eschar, multiple 1-2 cm stage 3 decubitus ulcers in the sacral and lower back area, admitted w/ elev LA-> now wnl, elev wbc (13.6), low BMI per guidelines, noted w/ severe BLE wasting. 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
--- NOTE | 2018-10-26 11:29 | Cardiac Electrophysiology PN ---
Subjective Subjective Cardiology consult dictated. Objective Last 24 Hour Vital Signs Date Time Temp Pulse Resp B/P (MAP) Pulse Ox O2 Delivery O2 Flow Rate FiO2 10/26/18 10:31 Room Air 10/26/18 10:31 Room Air 10/26/18 08:17 130 115/84 10/26/18 08:00 98.1 130 19 115/84 (94) 96 10/26/18 08:00 Nasal Cannula 2.0 10/26/18 07:43 104 10/26/18 07:36 Room Air 10/26/18 07:36 Room Air 10/26/18 07:00 98 Room Air 10/26/18 04:00 Nasal Cannula 2.0 10/26/18 04:00 98.4 109 19 129/69 (89) 98 10/26/18 03:50 116 10/26/18 03:05 134 116/67 10/26/18 02:55 Room Air 10/26/18 02:55 Room Air 10/26/18 00:00 98.3 123 20 110/69 (83) 98 10/26/18 00:00 Nasal Cannula 2.0 10/25/18 23:26 113 10/25/18 22:55 Room Air 10/25/18 22:55 Room Air 10/25/18 20:00 Nasal Cannula 2.0 10/25/18 20:00 98.1 122 20 102/62 (75) 96 10/25/18 19:12 100 10/25/18 18:57 121 20 97 Nasal Cannula 2.0 10/25/18 18:53 118 20 98 Room Air 10/25/18 18:53 97 Nasal Cannula 2.0 10/25/18 16:00 98.1 112 24 100/62 (75) 95 10/25/18 16:00 Nasal Cannula 2.0 10/25/18 15:27 105 10/25/18 12:39 99 Nasal Cannula 2.0 10/25/18 12:39 122 20 99 Nasal Cannula 2.0 10/25/18 12:00 Nasal Cannula 2.0 10/25/18 12:00 97.2 111 24 98/54 (69) 95 10/25/18 11:31 115 Intake and Output 10/25/18 10/26/18 18:59 06:59 Intake Total 1510.0 ml 825 ml Output Total 250 ml Balance 1260.0 ml 825 ml Intake Oral 450 ml IV Total 1060.0 ml 825 ml Output Urine Total 250 ml # Voids 1 # Bowel Movements 4 4 Laboratory Tests Test 10/25/18 11:50 10/25/18 12:15 10/26/18 04:00 Urine Random Sodium 106 mmol/L (20-110) Lactic Acid Level 1.50 mmol/L (0.4-2.0) Random Vancomycin Level 8.4 ug/mL White Blood Count 13.6 K/UL (4.8-10.8) H Red Blood Count 4.26 M/UL (4.70-6.10) L Hemoglobin 14.1 G/DL (14.2-18.0) L Hematocrit 42.8 % (42.0-52.0) Mean Corpuscular Volume 101 FL (80-99) H Mean Corpuscular Hemoglobin 33.0 PG (27.0-31.0) H Mean Corpuscular Hemoglobin Concent 32.8 G/DL (32.0-36.0) Red Cell Distribution Width 13.0 % (11.6-14.8) Platelet Count 204 K/UL (150-450) Mean Platelet Volume 6.6 FL (6.5-10.1) Neutrophils (%) (Auto) 77.9 % (45.0-75.0) H Lymphocytes (%) (Auto) 15.2 % (20.0-45.0) L Monocytes (%) (Auto) 5.8 % (1.0-10.0) Eosinophils (%) (Auto) 0.1 % (0.0-3.0) Basophils (%) (Auto) 1.0 % (0.0-2.0) Sodium Level 140 MMOL/L (136-145) Potassium Level 3.8 MMOL/L (3.5-5.1) Chloride Level 107 MMOL/L (98-107) Carbon Dioxide Level 22 MMOL/L (21-32) Anion Gap 11 mmol/L (5-15) Blood Urea Nitrogen 22 mg/dL (7-18) H Creatinine 1.0 MG/DL (0.55-1.30) Estimat Glomerular Filtration Rate mL/min (>60) Glucose Level 181 MG/DL (74-106) H Hemoglobin A1c 6.6 % (4.3-6.0) H Uric Acid 4.3 MG/DL (2.6-7.2) Calcium Level 8.9 MG/DL (8.5-10.1) Phosphorus Level 1.8 MG/DL (2.5-4.9) L Magnesium Level 1.8 MG/DL (1.8-2.4) Ferritin 285 NG/ML (8-388) Total Bilirubin 0.9 MG/DL (0.2-1.0) Gamma Glutamyl Transpeptidase 20 U/L (5-85) Aspartate Amino Transf (AST/SGOT) 37 U/L (15-37) Alanine Aminotransferase (ALT/SGPT) 12 U/L (12-78) Alkaline Phosphatase 54 U/L (46-116) Troponin I 0.000 ng/mL (0.000-0.056) C-Reactive Protein, Quantitative 17.1 mg/dL (0.00-0.90) H Pro-B-Type Natriuretic Peptide 4057 pg/mL (0-125) H Total Protein 6.4 G/DL (6.4-8.2) Albumin 2.7 G/DL (3.4-5.0) L Globulin 3.7 g/dL Albumin/Globulin Ratio 0.7 (1.0-2.7) L Triglycerides Level 113 MG/DL (30-150) Cholesterol Level 123 MG/DL (< 200) LDL Cholesterol 77 mg/dL (<100) HDL Cholesterol 27 MG/DL (40-60) L Cholesterol/HDL Ratio 4.6 (3.3-4.4) H Vitamin B12 Level 326 PG/ML (193-986) Folate 6.9 NG/ML (8.6-58.9) L Thyroid Stimulating Hormone (TSH) 0.588 uiU/mL (0.358-3.740) Microbiology Date/Time Source Procedure Growth Status 10/24/18 09:15 Blood Blood Culture - Preliminary NO GROWTH AFTER 24 HOURS Resulted 10/24/18 09:15 Blood Blood Culture - Preliminary NO GROWTH AFTER 24 HOURS Resulted 10/24/18 17:15 Nasal Nares - Final Complete 10/24/18 17:15 Nasal Nares - Final Complete 10/24/18 09:15 Nasal Nares MRSA Culture - Final NO METHICILLIN RESISTANT STAPH AUREUS... Complete 10/24/18 18:25 Urine,Clean Catch Urine Culture - Preliminary NO GROWTH AFTER 24 HOURS Resulted 10/24/18 09:15 Urine,Clean Catch Urine Culture - Preliminary Proteus Mirabilis Resulted 10/24/18 09:15 Rectum VRE Culture - Final NO VANCOMYCIN RESISTANT ENTEROCOCCUS ... Complete 10/24/18 09:15 Rectum - Final NO CARBAPENEM-RESISTANT ENTEROBACTERI... Complete Uri Abdullahi MD Oct 26, 2018 11:28
--- NOTE | 2018-10-26 11:39 | NUR ---
SWALLOW/SPEECH THERAPY NOTE: REFERRED BY DR LOVETT (DR MAJOR PRIMARY MD) FOR SWALLOW EVALUATION, SEE FULL REPORT IN TABLEAU REPORT DEVELOPER CARE ACTIVITY SECTION. DYSPHAGIA RISK FACTORS FOR THIS 77 Y.O.M.: ACUTE ISSUES GIB AND VOMITED COFFEE GROUND, PNA (POSSIBLY ASPIRATION RELATED), FEVER, SEPSIS, TACHYCARDIA, HYPOXIA. LUNGS L LL OPACITY, SPONTANEOUS COUGH ON 2 LITERS 02 NC, MEDS ALBUTEROL, HYPOXIA. H/O ADVANCED AGE, ALZHEIMER'S DZ DEMENTIA, HIV, DM2, ENDOCRINE D/O, GERD ON PROTONIX, NIDDM, CAD. PER POLST OK FOR LONG-TERM TF IF NEEDS, AT [facility] PROTEIN DIET AND REGULAR TEXTURE AND THIN LIQUIDS. NOW ON A CCH0-MED DIET WITH PUREED AND THIN LIQUIDS (DISLIKES PUREED AND REFUSES OR EATS 20/30/25%). PER RN, COUGHS WITH WATER AND SMALL PILL. PER PT, HE DOES COUGH AT TIMES WITH THIN LIQUIDS. ALERT AND ABLE TO EXPRESS BASIC NEEDS. HAS SPONTANEOUS COUGH W/O PO. 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 GROSSLY FUNCTIONAL OROMOTOR SKILLS AND GOOD DENTITION. GROSSLY FUNCTIONAL WITH NECTAR THICK LIQUIDS VIA TSP/CUP AND PUREED TSP WITH FAIR HYOLARYNGEAL EXCURSION BUT NEEDS EXTRA SWALLOW FOR ALL (RELATED TO ORAL AND/OR PHARYNEAL RESIDUE). GROSSLY FUNCTIONAL WITH MASTICATED SOLID (1/2 CRACKER) HAS SILENT ASPIRATION RISK DUE TO ALZHEIMER'S DZ DX AND HAS PNA (LIKELY ASPIRATION RELATED) POOR INTAKE ON CURRENT PUREED/THIN LIQ DIET DUE TO DISLIKE OF PUREED (WANTS EGGS AND TORRES AND WAS ON REG TEXTURE DIET AT [facility]). RECOMMENDATIONS: COMPLETE MODIFIED BARIUM SWALLOW STUDY TO FURTHER ASSESS SWALLOW,DETERMINE SILENT ASPIRATION RISK, AND ATTEMPT TRIAL TX TECHNIQUES. FOR QUALITY OF LIFE, CONSIDER CONTINUING WITH PO AND UPGRADE FROM PUREED TO MECH SOFT FINELY CHOPPED BUT DOWNGRADE LIQUIDS TO NECTAR THICK LIQUIDS WITH POSTED ASPIRATION AND REFLUX PRECAUTIONS. SKILLED DYSPHAGIA MANAGEMENT AND TX AND COG-COM EVAL/TX EDUCATED/TRAINED RN KIRA AND PATIENT REGARDING POSTED ASPIRATION AND REFLUX PRECAUTIONS. D/W MD DR MAJOR REGARDING ABOVE Addendum: 10/26/18 at 1410 by HAKAN LANDEROS PER WINDOWS ARCHITECT, PATIENT REFUSED HAVING THE MODIFIED BARIUM SWALLOW STUDY SO IT WAS CANCELLED.
[2018-10-26 12:00] VITALS: BP 109/57
--- NOTE | 2018-10-26 12:30 | NUR ---
NURSE NOTES: Pt refused to get video swallow eval performed. Explained benefits of procedure and indication but pt still refused.
--- NOTE | 2018-10-26 12:36 | Nephrology Progress Note ---
Assessment/Plan Problem List: (1) Sepsis (2) Tachycardia (3) Hypotension Assessment Hypotension UTI pneumonia, lactic acidosis, acute renal failure, diabetes mellitus with hyperglycemia, Alzheimer dementia. Plan Albumin bolus check renal parameters per orders midodrine for low bp antibiotics Subjective ROS Limited/Unobtainable: No Constitutional: Reports: malaise, weakness Objective Objective Last 24 Hour Vital Signs Date Time Temp Pulse Resp B/P (MAP) Pulse Ox O2 Delivery O2 Flow Rate FiO2 10/26/18 10:31 Room Air 10/26/18 10:31 Room Air 10/26/18 08:17 130 115/84 10/26/18 08:00 98.1 130 19 115/84 (94) 96 10/26/18 08:00 Nasal Cannula 2.0 10/26/18 07:43 104 10/26/18 07:36 Room Air 10/26/18 07:36 Room Air 10/26/18 07:00 98 Room Air 10/26/18 04:00 Nasal Cannula 2.0 10/26/18 04:00 98.4 109 19 129/69 (89) 98 10/26/18 03:50 116 10/26/18 03:05 134 116/67 10/26/18 02:55 Room Air 10/26/18 02:55 Room Air 10/26/18 00:00 98.3 123 20 110/69 (83) 98 10/26/18 00:00 Nasal Cannula 2.0 10/25/18 23:26 113 10/25/18 22:55 Room Air 10/25/18 22:55 Room Air 10/25/18 20:00 Nasal Cannula 2.0 10/25/18 20:00 98.1 122 20 102/62 (75) 96 10/25/18 19:12 100 10/25/18 18:57 121 20 97 Nasal Cannula 2.0 10/25/18 18:53 118 20 98 Room Air 10/25/18 18:53 97 Nasal Cannula 2.0 10/25/18 16:00 98.1 112 24 100/62 (75) 95 10/25/18 16:00 Nasal Cannula 2.0 10/25/18 15:27 105 10/25/18 12:39 99 Nasal Cannula 2.0 10/25/18 12:39 122 20 99 Nasal Cannula 2.0 28 Intake and Output 10/25/18 10/26/18 18:59 06:59 Intake Total 1510.0 ml 825 ml Output Total 250 ml Balance 1260.0 ml 825 ml Intake Oral 450 ml IV Total 1060.0 ml 825 ml Output Urine Total 250 ml # Voids 1 # Bowel Movements 4 4 Laboratory Tests 10/26/18 04:00: White Blood Count 13.6H, Red Blood Count 4.26L, Hemoglobin 14.1L, Hematocrit 42.8, Mean Corpuscular Volume 101H, Mean Corpuscular Hemoglobin 33.0H, Mean Corpuscular Hemoglobin Concent 32.8, Red Cell Distribution Width 13.0, Platelet Count 204, Mean Platelet Volume 6.6, Neutrophils (%) (Auto) 77.9H, Lymphocytes ( %) (Auto) 15.2L, Monocytes (%) (Auto) 5.8, Eosinophils (%) (Auto) 0.1, Basophils (%) (Auto) 1.0, Sodium Level 140, Potassium Level 3.8, Chloride Level 107, Carbon Dioxide Level 22, Anion Gap 11, Blood Urea Nitrogen 22H, Creatinine 1.0, Estimat Glomerular Filtration Rate , Glucose Level 181H, Hemoglobin A1c 6.6H, Uric Acid 4.3, Calcium Level 8.9, Phosphorus Level 1.8L, Magnesium Level 1.8, Ferritin 285, Total Bilirubin 0.9, Gamma Glutamyl Transpeptidase 20, Aspartate Amino Transf (AST/SGOT) 37, Alanine Aminotransferase (ALT/SGPT) 12, Alkaline Phosphatase 54, Troponin I 0.000, C-Reactive Protein, Quantitative 17.1H, Pro-B-Type Natriuretic Peptide 4057H, Total Protein 6.4, Albumin 2.7L, Globulin 3.7, Albumin/Globulin Ratio 0.7L, Triglycerides Level 113, Cholesterol Level 123, LDL Cholesterol 77, HDL Cholesterol 27L, Cholesterol/HDL Ratio 4.6H, Vitamin B12 Level 326, Folate 6.9L, Thyroid Stimulating Hormone (TSH) 0.588 Height (Feet): 6 Height (Inches): 1.00 Weight (Pounds): 161 Cardiovascular: tachycardia Respiratory/Chest: decreased breath sounds Abdomen: distended Randal Matamoros MD Oct 26, 2018 12:36
--- NOTE | 2018-10-26 13:38 | Surgery Progress Note ---
Surgery Progress Note Subjective Additional Comments leukocytosis improving no n/v/f/c exam stable. doing well without complaints. tolerating diet wound crosshatched today for dressing Objective Last 24 Hour Vital Signs Date Time Temp Pulse Resp B/P (MAP) Pulse Ox O2 Delivery O2 Flow Rate FiO2 10/26/18 12:00 Nasal Cannula 2.0 10/26/18 12:00 98.4 109 16 109/57 (74) 98 10/26/18 10:31 Room Air 10/26/18 10:31 Room Air 21 10/26/18 08:17 130 115/84 10/26/18 08:00 98.1 130 19 115/84 (94) 96 10/26/18 08:00 Nasal Cannula 2.0 10/26/18 07:43 104 10/26/18 07:36 Room Air 10/26/18 07:36 Room Air 10/26/18 07:00 98 Room Air 10/26/18 04:00 Nasal Cannula 2.0 10/26/18 04:00 98.4 109 19 129/69 (89) 98 10/26/18 03:50 116 10/26/18 03:05 134 116/67 10/26/18 02:55 Room Air 10/26/18 02:55 Room Air 10/26/18 00:00 98.3 123 20 110/69 (83) 98 10/26/18 00:00 Nasal Cannula 2.0 10/25/18 23:26 113 10/25/18 22:55 Room Air 10/25/18 22:55 Room Air 10/25/18 20:00 Nasal Cannula 2.0 10/25/18 20:00 98.1 122 20 102/62 (75) 96 10/25/18 19:12 100 10/25/18 18:57 121 20 97 Nasal Cannula 2.0 10/25/18 18:53 118 20 98 Room Air 10/25/18 18:53 97 Nasal Cannula 2.0 10/25/18 16:00 98.1 112 24 100/62 (75) 95 10/25/18 16:00 Nasal Cannula 2.0 10/25/18 15:27 105 I&O Intake and Output 10/25/18 10/26/18 19:00 07:00 Intake Total 1435.0 ml 975 ml Output Total 250 ml Balance 1185.0 ml 975 ml Intake Oral 450 ml IV Total 985.0 ml 975 ml Output Urine Total 250 ml # Voids 1 # Bowel Movements 4 4 Dressing: dry Wound: clean, other Drains: none Cardiovascular: RSR Respiratory: clear Abdomen: soft, flat, non-tender, present bowel sounds Extremities: no cyanosis, other Laboratory Tests Test 10/26/18 04:00 White Blood Count 13.6 K/UL (4.8-10.8) H Red Blood Count 4.26 M/UL (4.70-6.10) L Hemoglobin 14.1 G/DL (14.2-18.0) L Hematocrit 42.8 % (42.0-52.0) Mean Corpuscular Volume 101 FL (80-99) H Mean Corpuscular Hemoglobin 33.0 PG (27.0-31.0) H Mean Corpuscular Hemoglobin Concent 32.8 G/DL (32.0-36.0) Red Cell Distribution Width 13.0 % (11.6-14.8) Platelet Count 204 K/UL (150-450) Mean Platelet Volume 6.6 FL (6.5-10.1) Neutrophils (%) (Auto) 77.9 % (45.0-75.0) H Lymphocytes (%) (Auto) 15.2 % (20.0-45.0) L Monocytes (%) (Auto) 5.8 % (1.0-10.0) Eosinophils (%) (Auto) 0.1 % (0.0-3.0) Basophils (%) (Auto) 1.0 % (0.0-2.0) Sodium Level 140 MMOL/L (136-145) Potassium Level 3.8 MMOL/L (3.5-5.1) Chloride Level 107 MMOL/L (98-107) Carbon Dioxide Level 22 MMOL/L (21-32) Anion Gap 11 mmol/L (5-15) Blood Urea Nitrogen 22 mg/dL (7-18) H Creatinine 1.0 MG/DL (0.55-1.30) Estimat Glomerular Filtration Rate mL/min (>60) Glucose Level 181 MG/DL (74-106) H Hemoglobin A1c 6.6 % (4.3-6.0) H Uric Acid 4.3 MG/DL (2.6-7.2) Calcium Level 8.9 MG/DL (8.5-10.1) Phosphorus Level 1.8 MG/DL (2.5-4.9) L Magnesium Level 1.8 MG/DL (1.8-2.4) Ferritin 285 NG/ML (8-388) Total Bilirubin 0.9 MG/DL (0.2-1.0) Gamma Glutamyl Transpeptidase 20 U/L (5-85) Aspartate Amino Transf (AST/SGOT) 37 U/L (15-37) Alanine Aminotransferase (ALT/SGPT) 12 U/L (12-78) Alkaline Phosphatase 54 U/L (46-116) Troponin I 0.000 ng/mL (0.000-0.056) C-Reactive Protein, Quantitative 17.1 mg/dL (0.00-0.90) H Pro-B-Type Natriuretic Peptide 4057 pg/mL (0-125) H Total Protein 6.4 G/DL (6.4-8.2) Albumin 2.7 G/DL (3.4-5.0) L Globulin 3.7 g/dL Albumin/Globulin Ratio 0.7 (1.0-2.7) L Triglycerides Level 113 MG/DL (30-150) Cholesterol Level 123 MG/DL (< 200) LDL Cholesterol 77 mg/dL (<100) HDL Cholesterol 27 MG/DL (40-60) L Cholesterol/HDL Ratio 4.6 (3.3-4.4) H Vitamin B12 Level 326 PG/ML (193-986) Folate 6.9 NG/ML (8.6-58.9) L Thyroid Stimulating Hormone (TSH) 0.588 uiU/mL (0.358-3.740) Plan Problems: (1) GI bleed (2) Coffee ground emesis (3) Fever (4) Pneumonia (5) BPH (benign prostatic hyperplasia) (6) Tachycardia (7) Sepsis Assessment & Plan: tachycardic leukocytosis improving pna lactic acidosis iv fluid hydration trend labs will follow (8) Decubitus skin ulcer Assessment & Plan: Pt presented on admission with multiple pressure injuries. Staff on unit reports pt resistive to wound care and to being repositioned. Initially pt was resistive and attempted to hit staff but with encouragement pt apologized and consented to have staff evaluate wounds. Maroon area without induration or fluctuance noted to L thoracic area.(L)2cm x ( W)1cm. #2 areas of Unstageable pressure injuries noted to lumbar spine(proximal wound) (L)1cm x (W)0.9cm.100% yellow slough with marginal erythema noted.(inferior wound)(L)1cm x (W)1cm.Base of wound has 100% slough with marginal erythema.Periwound skin is pink. Unstageable pressure injury noted to L but in close proximity lumbar spine. Base of wound has 100% slough with marginal erythema.(L)0.4cm x (W)0.3cm. Non- blanchable erythema without induration periwound. Unstageable pressure injury sacrum.Base of wound has 100% slough with marginal erythema.(L)0.8cm x (W)0.9cm. Non-blanchable erythema without induration periwound. Partial thickness pressure injury noted to R trochanter. Base of wound moist - viable.(L)1.5cm x (W)0.5cm. Borders and periwound dark brown with dry peeling skin. Unstageable pressure injury with necrosis centrally with surrounding erythematous base. (+) maceration along edges.Periwound with dry ,brown peeling skin .No induration or erythema periwound. No odor noted.(L)9 cm x (W)7.5cm. Non-blanchable erythema without induration or fluctuance noted to L lateral malleolus. Pt educated on wound prevention. Pt educated of risks vs benefits on compliance with wound care and to being repositioned. Pt stated he was unaware of stages of wounds and expressed appreciation for wound care but still became agitated while being repositioned. Tx.Plan: Cleanse L trochanteric wound with Saline. Apply Therahoney. Apply Moisture Barrier to borders and periwound. Cover with Optifoam drsg Daily and prn. Cleanse wounds lumbar spine and sacral area with Saline. Apply Therahoney to each wound . Apply Cavilon Skin Barrier to borders of each wound. Cover wounds with Optifoam drsg. Change every 3 days and prn. Apply Cavilon Skin Barrier to L thoracic.Cover with Optifoam drsg. Change every 7 days and prn. Apply Cavilon Skin Barrier to both heels. Cover each heel with Optifoam drsg. Change every 7 days and prn. Apply Cavilon Skin Barrier to L lateral malleolus. Cover with Optifoam drsg. Change every 7 days and prn. Reposition at least every 2hours or as tolerated. Off-load heels with pillow. APM/MACKENZIE mattress overlay. Michael Clay Oct 26, 2018 13:38
[2018-10-26] MEDS: dilTIAZem HCl 90mg tab ORAL SCH ×2 (13:47→21:50)
[2018-10-26] MEDS ORDERED: Sodium Phosphate 30 MM in NS 275 ML IVPB ONE (14:00)
--- NOTE | 2018-10-26 14:35 | Pulmonology Progress Note ---
Assessment/Plan Assessment/Plan Pulmonary Progress Noted HPI Patient is a 77 year old man with history of HIV, Dementia, Diabetes, CAD who presents from a care home facility after a reported episode of emesis. Noted to have sinus tachycardia and evidence of pneumonia in the ED. The patient himself has no specific complaints. He denies pain. He denies cough or congestion. He denies shortness of breath. He has no specific complaints. Feels improved. Multiple decubitus ulcers Allergies: No Known Allergies Past Medical History: DM, CAD, dementia, HIV All Other Systems: negative except mentioned in HPI Physical Exam Vital Signs Noted General Appearance: no apparent distress, alert, GCS 15, non-toxic, chronically ill appearing Head: normocephalic, atraumatic Eyes: bilateral eye normal inspection, bilateral eye PERRL ENT: hearing grossly normal, normal pharynx, no angioedema, normal voice Neck: normal inspection, full range of motion Respiratory: chest non-tender, lungs clear, normal breath sounds, no respiratory distress, no retraction, no accessory muscle use, speaking full sentences Cardiovascular: no edema, tachycardia, HS normal Gastrointestinal: normal bowel sounds, non tender, soft, non-distended, no guarding, no rebound Rectal: deferred Musculoskeletal: normal inspection, normal range of motion, non-tender Neurologic: alert, responsive, motor strength/tone normal, speech normal Impression: Pneumonia Decubitus ulcers Sepsis HIV Dementia Diabetes - glucose 342 CAD Plan IV Antibiotics per ID IVF PRN ST eval swallow Protonix PPX HHN O2 PRN EKG: Rate: tachycardiac - S.tachycardia ST Segments: no acute changes Chest X-Ray: no pneumothorax, other - LLL opacity Subjective ROS Limited/Unobtainable: No Allergies: Coded Allergies: CHEESE (Verified Allergy, Severe, 10/24/18) Objective Last 24 Hour Vital Signs Date Time Temp Pulse Resp B/P (MAP) Pulse Ox O2 Delivery O2 Flow Rate FiO2 10/26/18 13:47 109 109/57 10/26/18 12:00 135 10/26/18 12:00 Nasal Cannula 2.0 10/26/18 12:00 98.4 109 16 109/57 (74) 98 10/26/18 10:31 Room Air 21 10/26/18 10:31 Room Air 21 10/26/18 08:17 130 115/84 10/26/18 08:00 98.1 130 19 115/84 (94) 96 10/26/18 08:00 Nasal Cannula 2.0 10/26/18 07:43 104 10/26/18 07:36 Room Air 10/26/18 07:36 Room Air 10/26/18 07:00 98 Room Air 10/26/18 04:00 Nasal Cannula 2.0 10/26/18 04:00 98.4 109 19 129/69 (89) 98 10/26/18 03:50 116 10/26/18 03:05 134 116/67 10/26/18 02:55 Room Air 10/26/18 02:55 Room Air 10/26/18 00:00 98.3 123 20 110/69 (83) 98 10/26/18 00:00 Nasal Cannula 2.0 10/25/18 23:26 113 10/25/18 22:55 Room Air 10/25/18 22:55 Room Air 10/25/18 20:00 Nasal Cannula 2.0 10/25/18 20:00 98.1 122 20 102/62 (75) 96 10/25/18 19:12 100 10/25/18 18:57 121 20 97 Nasal Cannula 2.0 28 10/25/18 18:53 118 20 98 Room Air 10/25/18 18:53 97 Nasal Cannula 2.0 28 10/25/18 16:00 98.1 112 24 100/62 (75) 95 10/25/18 16:00 Nasal Cannula 2.0 10/25/18 15:27 105 Intake and Output 10/25/18 10/26/18 19:00 07:00 Intake Total 1435.0 ml 975 ml Output Total 250 ml Balance 1185.0 ml 975 ml Intake Oral 450 ml IV Total 985.0 ml 975 ml Output Urine Total 250 ml # Voids 1 # Bowel Movements 4 4 Microbiology Date/Time Source Procedure Growth Status 10/24/18 09:15 Blood Blood Culture - Preliminary NO GROWTH AFTER 24 HOURS Resulted 10/24/18 09:15 Blood Blood Culture - Preliminary NO GROWTH AFTER 24 HOURS Resulted 10/24/18 17:15 Nasal Nares - Final Complete 10/24/18 17:15 Nasal Nares - Final Complete 10/24/18 09:15 Nasal Nares MRSA Culture - Final NO METHICILLIN RESISTANT STAPH AUREUS... Complete 10/24/18 18:25 Urine,Clean Catch Urine Culture - Preliminary NO GROWTH AFTER 24 HOURS Resulted 10/24/18 09:15 Urine,Clean Catch Urine Culture - Preliminary Proteus Mirabilis Resulted 10/24/18 09:15 Rectum VRE Culture - Final NO VANCOMYCIN RESISTANT ENTEROCOCCUS ... Complete 10/24/18 09:15 Rectum - Final NO CARBAPENEM-RESISTANT ENTEROBACTERI... Complete Laboratory Tests 10/26/18 04:00: White Blood Count 13.6H, Red Blood Count 4.26L, Hemoglobin 14.1L, Hematocrit 42.8, Mean Corpuscular Volume 101H, Mean Corpuscular Hemoglobin 33.0H, Mean Corpuscular Hemoglobin Concent 32.8, Red Cell Distribution Width 13.0, Platelet Count 204, Mean Platelet Volume 6.6, Neutrophils (%) (Auto) 77.9H, Lymphocytes ( %) (Auto) 15.2L, Monocytes (%) (Auto) 5.8, Eosinophils (%) (Auto) 0.1, Basophils (%) (Auto) 1.0, Sodium Level 140, Potassium Level 3.8, Chloride Level 107, Carbon Dioxide Level 22, Anion Gap 11, Blood Urea Nitrogen 22H, Creatinine 1.0, Estimat Glomerular Filtration Rate , Glucose Level 181H, Hemoglobin A1c 6.6H, Uric Acid 4.3, Calcium Level 8.9, Phosphorus Level 1.8L, Magnesium Level 1.8, Ferritin 285, Total Bilirubin 0.9, Gamma Glutamyl Transpeptidase 20, Aspartate Amino Transf (AST/SGOT) 37, Alanine Aminotransferase (ALT/SGPT) 12, Alkaline Phosphatase 54, Troponin I 0.000, C-Reactive Protein, Quantitative 17.1H, Pro-B-Type Natriuretic Peptide 4057H, Total Protein 6.4, Albumin 2.7L, Globulin 3.7, Albumin/Globulin Ratio 0.7L, Triglycerides Level 113, Cholesterol Level 123, LDL Cholesterol 77, HDL Cholesterol 27L, Cholesterol/HDL Ratio 4.6H, Vitamin B12 Level 326, Folate 6.9L, Thyroid Stimulating Hormone (TSH) 0.588 Current Medications Medications (Trade) Dose Ordered Sig/Itzel Route PRN Reason Start Time Stop Time Status Last Admin Dose Admin Acetaminophen (Tylenol) 650 mg Q4H PRN ORAL Mild Pain/Temp > 100.5 10/24/18:45 11/23/18 19:44 Cefepime HCl 1 gm/ Dextrose 55 ml @ 110 mls/hr EVERY 12 HOURS IVPB 10/25/18 21:00 11/01/18 08:59 10/26/18 08:16 Dextrose (Dextrose 50%) 25 ml Q30M PRN IV Hypoglycemia 10/24/18 14:45 11/23/18 14:44 Dextrose (Dextrose 50%) 50 ml Q30M PRN IV Hypoglycemia 10/24/18 14:45 11/23/18 14:44 Diltiazem HCl (Cardizem) 10 mg Q4H PRN IVP For HR > 120 10/25/18 21:48 11/24/18 21:47 10/26/18 08:17 Diltiazem HCl (Cardizem) 90 mg EVERY 8 HOURS ORAL 10/26/18 14:00 11/25/18 13:59 10/26/18 13:47 Docusate Sodium (Colace) 100 mg THREE TIMES A DAY ORAL 10/24/18 18:00 11/23/18 17:59 10/26/18 12:43 Folic Acid (Folate) 3 mg DAILY ORAL 10/26/18 09:30 11/25/18 09:29 10/26/18 09:50 Heparin Sodium (Porcine) (Heparin 5000 units/ml) 5,000 units EVERY 12 HOURS SUBQ 10/24/18 21:00 11/23/18 20:59 10/26/18 08:19 Insulin Aspart (NovoLOG) BEFORE MEALS AND HS SUBQ 10/24/18 16:30 11/23/18 16:29 10/26/18 12:35 Ipratropium [place] (Atrovent) 500 mcg Q4HRT HHN 10/25/18 19:00 10/30/18 18:59 10/25/18 18:53 Multivitamins (Multivitamins) 1 tab DAILY ORAL 10/25/18 09:00 11/24/18 08:59 10/26/18 08:15 Ondansetron HCl (Zofran) 4 mg Q6H PRN IVP Nausea & Vomiting 10/24/18 14:30 11/23/18 14:29 Pantoprazole (Protonix) 40 mg DAILY ORAL 10/25/18 09:00 11/24/18 08:59 10/26/18 08:16 Patient Own Medication (Patient's Own Med) 1 ea DAILY ORAL 10/25/18 09:00 11/24/18 08:59 UNV Polyethylene Glycol (Miralax) 17 gm BEDTIME ORAL 10/24/18 21:00 11/23/18 20:59 10/24/18 21:23 Potassium Phosphate 20 mm/ Sodium Chloride 281.6667 ml @ 46.944 m... ONCE ONCE IV 10/26/18 11:00 10/26/18 16:59 10/26/18 11:59 Sennosides (Senokot) 8.6 mg DAILYPRN PRN ORAL Constipation 10/24/18 14:30 11/23/18 14:29 Sodium Hypochlorite (Dakin's Full Strength) 1 applic BEDTIME TOPIC 10/24/18 21:00 11/23/18 20:59 10/24/18 21:23 Sodium Chloride 1,000 ml @ 75 mls/hr [id number] IV 10/24/18 14:45 11/23/18 14:44 10/26/18 05:54 Sodium Phosphate 30 mm/Sodium Chloride 285 ml @ 47.5 mls/hr ONCE ONCE IVPB 10/26/18 14:00 10/26/18 19:59 10/26/18 13:47 Tamsulosin HCl (Flomax) 0.4 mg BEDTIME ORAL 10/24/18 21:00 11/23/18 20:59 10/24/18 21:23 Rasta Candelario MD Oct 26, 2018 14:35
[2018-10-26 16:00] VITALS: BP 135/72
[2018-10-26] MEDS ORDERED: NS 275ml ONE (16:13)
[2018-10-26] MEDS ORDERED: Tubing IV Secondary IV ONE (16:13)
--- NOTE | 2018-10-26 16:53 | NUR ---
NURSE NOTES: Left a message for Dr. Matamoros regarding pt's dysuria. Awaiting call back.
--- NOTE | 2018-10-26 17:00 | NUR ---
NURSE NOTES: Pt presented on admission with multiple pressure injuries. Staff on unit reports pt resistive to wound care and to being repositioned. Initially pt was resistive and attempted to hit staff but with encouragement pt apologized and consented to have staff evaluate wounds. Maroon area without induration or fluctuance noted to L thoracic area.(L)2cm x (W)1cm. #2 areas of Unstageable pressure injuries noted to lumbar spine(proximal wound)(L)1cm x (W)0.9cm.100% yellow slough with marginal erythema noted.(inferior wound)(L)1cm x (W)1cm.Base of wound has 100% slough with marginal erythema.Periwound skin is pink. Unstageable pressure injury noted to L but in close proximity lumbar spine. Base of wound has 100% slough with marginal erythema.(L)0.4cm x (W)0.3cm. Non-blanchable erythema without induration periwound. Unstageable pressure injury sacrum.Base of wound has 100% slough with marginal erythema.(L)0.8cm x (W)0.9cm. Non-blanchable erythema without induration periwound. Partial thickness pressure injury noted to R trochanter. Base of wound moist -viable.(L)1.5cm x (W)0.5cm. Borders and periwound dark brown with dry peeling skin. Unstageable pressure injury with necrosis centrally with surrounding erythematous base. (+) maceration along edges.Periwound with dry ,brown peeling skin .No induration or erythema periwound. No odor noted.(L)9 cm x (W)7.5cm. Non-blanchable erythema without induration or fluctuance noted to L lateral malleolus. Pt educated on wound prevention. Pt educated of risks vs benefits on compliance with wound care and to being repositioned. Pt stated he was unaware of stages of wounds and expressed appreciation for wound care but still became agitated while being repositioned. Tx.Plan: Cleanse L trochanteric wound with Saline. Apply Therahoney. Apply Moisture Barrier to borders and periwound. Cover with Optifoam drsg Daily and prn. Cleanse wounds lumbar spine and sacral area with Saline. Apply Therahoney to each wound . Apply Cavilon Skin Barrier to borders of each wound. Cover wounds with Optifoam drsg. Change every 3 days and prn. Apply Cavilon Skin Barrier to L thoracic.Cover with Optifoam drsg. Change every 7 days and prn. Apply Cavilon Skin Barrier to both heels. Cover each heel with Optifoam drsg. Change every 7 days and prn. Apply Cavilon Skin Barrier to L lateral malleolus. Cover with Optifoam drsg. Change every 7 days and prn. Reposition at least every 2hours or as tolerated. Off-load heels with pillow. APM/MACKENZIE mattress overlay.
--- NOTE | 2018-10-26 17:00 | NUR ---
HAND-OFF: Report given to Lidya Lakhani RN. Pt in stable condition.
--- NOTE | 2018-10-26 17:05 | NUR ---
NURSE NOTES: Assumed pt care,report given by Lisa MENDEZ.Pt awake,alert in no distress denies any c/o pain at this time ,no resp distress noted appears stable.
--- NOTE | 2018-10-26 18:30 | Consultation ---
DATE OF CONSULTATION: 10/26/2018 CARDIOLOGY CONSULTATION CONSULTING PHYSICIAN: Uri Abdullahi M.D. REFERRING PHYSICIAN: Suresh Lindquist M.D. REASON FOR CONSULTATION: Atrial fibrillation with rapid ventricular response. HISTORY OF PRESENT ILLNESS: The patient is a 77-year-old gentleman with history of hypertension, diabetes, coronary artery disease as well as history of HIV and dementia, who was brought in from [facility] after emesis. The patient was found to have pneumonia in the emergency room. The patient initially was in sinus rhythm, however, did have atrial fibrillation and was in and out of atrial fibrillation. Per my order, the patient received 10 mg of IV Cardizem as the heart rate was currently above 120s in atrial fibrillation. Cardiology consultation was obtained for further evaluation and management. REVIEW OF SYSTEMS: Negative other than what was mentioned in history of present illness. PAST MEDICAL HISTORY: As mentioned above. FAMILY HISTORY: Noncontributory. SOCIAL HISTORY: He is a [facility] resident. Does not smoke or drink alcohol. PHYSICAL EXAMINATION: VITAL SIGNS: Blood pressure is /84, pulse is 130, respirations 18, and temperature 98.1. HEAD AND NECK: Showed no JVD. LUNGS: Coarse rhonchi. CARDIOVASCULAR: Shows irregularly irregular, S1 and S2 with no gallop or murmur. ABDOMEN: Soft. EXTREMITIES: Lower extremities are contracted with no edema. LABORATORY AND DIAGNOSTIC DATA: His EKG showed atrial fibrillation with rapid ventricular response, heart rate 117 beats per minute. His labs show white count of 13.6 and initially was 21.6, hemoglobin of 14.1, hematocrit 42.8, and platelet count of 204,000. Sodium 140, potassium 3.8, BUN of 22, creatinine 1, and glucose of 181. Troponin is negative. His INR is 1.1. Urinalysis showed too numerous to count wbc and rbc. ASSESSMENT AND PLAN: 1. Atrial fibrillation with rapid ventricular response. I will start the patient on Cardizem 90 mg every 6 hours p.o. We may need to transfer the patient to ICU if that does not control the heart rate. In the meantime, the patient is on Cardizem 10 mg IV p.r.n. The first troponin is negative. We will completely rule out [place] protocol. His echocardiogram showed EF of 55%. The patient likely would need anticoagulation. We will start the patient on Lovenox 70 mg b.i.d. The patient may need a G-tube placement. 2. Coffee-ground emesis and GI bleed. No recurrent vomiting, but has poor oral intake. Resume PPI. No plans for EGD or colonoscopy at this time by Dr. Mendoza. 3. UTI and sepsis. The patient is on IV antibiotic per Dr. Rigo Ames. 4. HIV. 5. Pneumonia. 6. Diabetes. 7. Alzheimer dementia. Thank you very much, Dr. Lindquist, for allowing me to participate in the care of this patient. Please do not hesitate to contact me for any questions regarding my evaluation. Uri Abdullahi M.D. DR: ZAMZAM JOB#: [id number] CC:
--- NOTE | 2018-10-26 19:10 | NUR ---
NURSE NOTES: Pt report received from Lidya MENDEZ HARI. Pt is resting comfortable in bed, watching TV. Pt is alert and oriented times 3, able to respond to simple commands. Pt is on a cardiac surgeon and is displaying NSR, with no other signs/ symptoms of acute cardiac compromise noted. pt is on 2 L NC and is able to saturate at 99%, no other signs/ symptoms of acute resp distress noted. all other safety precaution in affect, bed locked and low, bed armed, call light within reach, bed rails up times 3. will continue plan of care.
--- NOTE | 2018-10-26 19:20 | NUR ---
:HAND-OFF: Report given to Peter Riddle RN .
[2018-10-26 20:00] VITALS: BP 137/74
[2018-10-26] MEDS: Miralax 17gm pkt ORAL SCH (20:32)
[2018-10-26] MEDS: Tamsulosin 0.4mg cap ORAL SCH (20:32)
[2018-10-26] MEDS: Dakin's 0.5% (Full Strength) 16oz TOPIC SCH (20:35)
--- NOTE | 2018-10-26 22:48 | General Progress Note ---
Assessment/Plan Problem List: (1) Sepsis ICD Codes: A41.9 - Sepsis, unspecified organism SNOMED: 78945863 (2) Tachycardia ICD Codes: R00.0 - Tachycardia, unspecified SNOMED: 3147823 (3) GI bleed ICD Codes: K92.2 - Gastrointestinal hemorrhage, unspecified SNOMED: 71204760 (4) Coffee ground emesis ICD Codes: K92.0 - Hematemesis SNOMED: 67896466 (5) Fever ICD Codes: R50.9 - Fever, unspecified SNOMED: 906455459 (6) Pneumonia ICD Codes: J18.9 - Pneumonia, unspecified organism SNOMED: 797908594 (7) BPH (benign prostatic hyperplasia) ICD Codes: N40.0 - Benign prostatic hyperplasia without lower urinary tract symptoms SNOMED: 404974057 Status: stable, unchanged Assessment/Plan: abx per id poor foot hygeine.consulted dr george reviewed chart sepsis pna no vomitting gi bleed aids cachexia multiple wounds Subjective ROS Limited/Unobtainable: Yes Allergies: Coded Allergies: CHEESE (Verified Allergy, Severe, 10/24/18) Objective Last 24 Hour Vital Signs Date Time Temp Pulse Resp B/P (MAP) Pulse Ox O2 Delivery O2 Flow Rate FiO2 10/26/18 22:34 Nasal Cannula 2.0 28 10/26/18 22:34 Nasal Cannula 2.0 28 10/26/18 21:50 93 138/74 10/26/18 20:00 Nasal Cannula 2.0 10/26/18 20:00 98.5 94 20 137/74 (95) 99 10/26/18 19:41 98 Nasal Cannula 2.0 10/26/18 19:40 Nasal Cannula 2.0 10/26/18 19:39 Nasal Cannula 2.0 10/26/18 19:27 86 10/26/18 16:00 93 10/26/18 16:00 97.5 96 20 135/72 (93) 96 10/26/18 16:00 Nasal Cannula 2.0 10/26/18 15:29 Room Air 21 10/26/18 15:29 Room Air 21 10/26/18 13:47 109 109/57 10/26/18 12:00 135 10/26/18 12:00 Nasal Cannula 2.0 10/26/18 12:00 98.4 109 16 109/57 (74) 98 10/26/18 10:31 Room Air 21 10/26/18 10:31 Room Air 21 10/26/18 08:17 130 115/84 10/26/18 08:00 98.1 130 19 115/84 (94) 96 10/26/18 08:00 Nasal Cannula 2.0 10/26/18 07:43 104 10/26/18 07:36 Room Air 21 10/26/18 07:36 Room Air 21 10/26/18 07:00 98 Room Air 21 10/26/18 04:00 Nasal Cannula 2.0 10/26/18 04:00 98.4 109 19 129/69 (89) 98 10/26/18 03:50 116 10/26/18 03:05 134 116/67 10/26/18 02:55 Room Air 21 10/26/18 02:55 Room Air 21 10/26/18 00:00 98.3 123 20 110/69 (83) 98 10/26/18 00:00 Nasal Cannula 2.0 10/25/18 23:26 113 10/25/18 22:55 Room Air 21 10/25/18 22:55 Room Air 21 Intake and Output 10/25/18 10/26/18 19:00 07:00 Intake Total 1435.0 ml 975 ml Output Total 250 ml Balance 1185.0 ml 975 ml Intake Oral 450 ml IV Total 985.0 ml 975 ml Output Urine Total 250 ml # Voids 1 # Bowel Movements 4 4 Laboratory Tests 10/26/18 04:00: White Blood Count 13.6H, Red Blood Count 4.26L, Hemoglobin 14.1L, Hematocrit 42.8, Mean Corpuscular Volume 101H, Mean Corpuscular Hemoglobin 33.0H, Mean Corpuscular Hemoglobin Concent 32.8, Red Cell Distribution Width 13.0, Platelet Count 204, Mean Platelet Volume 6.6, Neutrophils (%) (Auto) 77.9H, Lymphocytes ( %) (Auto) 15.2L, Monocytes (%) (Auto) 5.8, Eosinophils (%) (Auto) 0.1, Basophils (%) (Auto) 1.0, Sodium Level 140, Potassium Level 3.8, Chloride Level 107, Carbon Dioxide Level 22, Anion Gap 11, Blood Urea Nitrogen 22H, Creatinine 1.0, Estimat Glomerular Filtration Rate , Glucose Level 181H, Hemoglobin A1c 6.6H, Uric Acid 4.3, Calcium Level 8.9, Phosphorus Level 1.8L, Magnesium Level 1.8, Ferritin 285, Total Bilirubin 0.9, Gamma Glutamyl Transpeptidase 20, Aspartate Amino Transf (AST/SGOT) 37, Alanine Aminotransferase (ALT/SGPT) 12, Alkaline Phosphatase 54, Troponin I 0.000, C-Reactive Protein, Quantitative 17.1H, Pro-B-Type Natriuretic Peptide 4057H, Total Protein 6.4, Albumin 2.7L, Globulin 3.7, Albumin/Globulin Ratio 0.7L, Triglycerides Level 113, Cholesterol Level 123, LDL Cholesterol 77, HDL Cholesterol 27L, Cholesterol/HDL Ratio 4.6H, Vitamin B12 Level 326, Folate 6.9L, Thyroid Stimulating Hormone (TSH) 0.588 Height (Feet): 6 Height (Inches): 1.00 Weight (Pounds): 161 Cardiovascular: normal rate Abdomen: non tender Suresh Lindquist MD Oct 26, 2018 22:48
[2018-10-27] VITALS: BP 123/74
[2018-10-27] MEDS: Ipratropium 0.02% Inh Soln 2.5ml UD HHN SCH ×6 (02:38→22:42)
[2018-10-27 04:00] VITALS: BP 127/46
--- NOTE | 2018-10-27 05:27 | NUR ---
NURSE NOTES: Pt refused Blood Draw/ AM labs.
[2018-10-27] MEDS: NovoLOG Insulin Flexpen SUBQ SCH ×4 (05:30→20:31)
[2018-10-27] MEDS: dilTIAZem HCl 90mg tab ORAL SCH ×3 (05:34→21:06)
--- NOTE | 2018-10-27 06:34 | General Progress Note ---
Assessment/Plan Problem List: (1) Coffee ground emesis ICD Codes: K92.0 - Hematemesis SNOMED: 21344905 (2) Fever ICD Codes: R50.9 - Fever, unspecified SNOMED: 486342631 (3) BPH (benign prostatic hyperplasia) ICD Codes: N40.0 - Benign prostatic hyperplasia without lower urinary tract symptoms SNOMED: 759527843 (4) Pneumonia ICD Codes: J18.9 - Pneumonia, unspecified organism SNOMED: 155286897 (5) Afib ICD Codes: I48.91 - Unspecified atrial fibrillation SNOMED: 49753618 (6) Decubitus skin ulcer ICD Codes: L89.90 - Pressure ulcer of unspecified site, unspecified stage SNOMED: 134709552 (7) HIV (human immunodeficiency virus infection) ICD Codes: B20 - Human immunodeficiency virus [HIV] disease SNOMED: 53102362 Status: stable, unchanged Assessment/Plan: no recurrent vomiting poor po intake ppi stable H&H no plans for EGD or colonoscopy at this time fu labs supportive care fu cardiology recs wound care Subjective ROS Limited/Unobtainable: Yes Allergies: Coded Allergies: CHEESE (Verified Allergy, Severe, 10/24/18) Objective Last 24 Hour Vital Signs Date Time Temp Pulse Resp B/P (MAP) Pulse Ox O2 Delivery O2 Flow Rate FiO2 10/27/18 05:34 90 129/52 10/27/18 04:25 98.7 10/27/18 04:00 98.7 100 18 127/46 (73) 99 10/27/18 04:00 Nasal Cannula 2.0 10/27/18 03:34 80 10/27/18 02:39 Nasal Cannula 2.0 10/27/18 02:38 Nasal Cannula 2.0 10/27/18 00:00 98.9 97 18 123/74 (90) 99 10/27/18 00:00 Nasal Cannula 2.0 10/26/18 23:34 82 10/26/18 22:34 Nasal Cannula 2.0 28 10/26/18 22:34 Nasal Cannula 2.0 10/26/18 21:50 93 138/74 10/26/18 20:00 Nasal Cannula 2.0 10/26/18 20:00 98.5 94 20 137/74 (95) 99 10/26/18 19:41 98 Nasal Cannula 2.0 10/26/18 19:40 Nasal Cannula 2.0 28 10/26/18 19:39 Nasal Cannula 2.0 10/26/18 19:27 86 10/26/18 16:00 93 10/26/18 16:00 97.5 96 20 135/72 (93) 96 10/26/18 16:00 Nasal Cannula 2.0 10/26/18 15:29 Room Air 21 10/26/18 15:29 Room Air 10/26/18 13:47 109 109/57 10/26/18 12:00 135 10/26/18 12:00 Nasal Cannula 2.0 10/26/18 12:00 98.4 109 16 109/57 (74) 98 10/26/18 10:31 Room Air 21 10/26/18 10:31 Room Air 21 10/26/18 08:17 130 115/84 10/26/18 08:00 98.1 130 19 115/84 (94) 96 10/26/18 08:00 Nasal Cannula 2.0 10/26/18 07:43 104 10/26/18 07:36 Room Air 21 10/26/18 07:36 Room Air 21 10/26/18 07:00 98 Room Air 21 Intake and Output 10/26/18 10/27/18 19:00 07:00 Intake Total 1497.220 ml 692.5 ml Output Total 3 ml Balance 1494.220 ml 692.5 ml Intake Oral 240 ml IV Total 1257.220 ml 692.5 ml Output Urine Total 3 ml # Bowel Movements 1 1 Height (Feet): 6 Height (Inches): 1.00 Weight (Pounds): 161 General Appearance: alert EENT: normal ENT inspection Neck: supple Cardiovascular: normal rate Respiratory/Chest: decreased breath sounds Abdomen: normal bowel sounds, non tender, soft Extremities: non-tender Fernie Mendoza MD Oct 27, 2018 06:34
--- NOTE | 2018-10-27 07:29 | NUR ---
HAND-OFF: Report given to Lidya Mares
--- NOTE | 2018-10-27 07:30 | NUR ---
NURSE NOTES: Report received from Peter Riddle RN Pt resting in bed awake,alert in no resp distress,on RA ,pt refuses to wear O2,denies any c/o pain ot discomfort,SR on the monitor,IV site to RAC intact with IVF NS at 75 ml/hr,skin warm and dry ,Sr up x2 HOB elevated ,call brewer within reach,bed lock in lowest position,will continue with plans of care.
[2018-10-27 08:00] VITALS: BP 96/59
[2018-10-27] MEDS: Docusate 100mg cap ORAL SCH ×4 (09:00→17:57)
[2018-10-27] MEDS: Cefepime HCl 1 GM in D5W 55 ML IVPB SCH (09:26)
[2018-10-27] MEDS: Heparin 5000 units/ml inj SUBQ SCH ×2 (09:29→20:31)
[2018-10-27 12:00] VITALS: BP 134/57
--- NOTE | 2018-10-27 12:00 | NUR ---
NURSE NOTES: Pt's oral intake getting better,eating more with appetite.
--- NOTE | 2018-10-27 12:34 | Infectious Diseases Prog Note ---
Assessment/Plan Assessment/Plan IMPRESSION: Sepsis improving UTI with Klebsiella ESBL pneumonia, HIV lactic acidosis, Acute renal failure improving, diabetes mellitus with hyperglycemia, Alzheimer dementia. RECOMMENDATION: Discontinue cefepime. Start on Meropenem HIV treatment (Vidalefsey) is not available in hospital Subjective ROS Limited/Unobtainable: No Constitutional: Reports: no symptoms Respiratory: Reports: dry cough Gastrointestinal/Abdominal: Reports: no symptoms Genitourinary: Reports: no symptoms Allergies: Coded Allergies: CHEESE (Verified Allergy, Severe, 10/24/18) Objective Vital Signs Last 24 Hour Vital Signs Date Time Temp Pulse Resp B/P (MAP) Pulse Ox O2 Delivery O2 Flow Rate FiO2 10/27/18 12:00 Nasal Cannula 2.0 10/27/18 11:35 Room Air 10/27/18 11:35 Room Air 10/27/18 08:50 86 10/27/18 08:00 Nasal Cannula 2.0 10/27/18 08:00 97.0 80 20 96/59 (71) 98 10/27/18 07:00 97 Room Air 21 10/27/18 06:51 83 18 95 Room Air 21 10/27/18 06:47 83 18 95 Room Air 21 10/27/18 05:34 90 129/52 10/27/18 04:25 98.7 10/27/18 04:00 98.7 100 18 127/46 (73) 99 10/27/18 04:00 Nasal Cannula 2.0 10/27/18 03:34 80 10/27/18 02:39 Nasal Cannula 2.0 28 10/27/18 02:38 Nasal Cannula 2.0 28 10/27/18 00:00 98.9 97 18 123/74 (90) 99 10/27/18 00:00 Nasal Cannula 2.0 10/26/18 23:34 82 10/26/18 22:34 Nasal Cannula 2.0 28 10/26/18 22:34 Nasal Cannula 2.0 28 10/26/18 21:50 93 138/74 10/26/18 20:00 Nasal Cannula 2.0 10/26/18 20:00 98.5 94 20 137/74 (95) 99 10/26/18 19:41 98 Nasal Cannula 2.0 28 10/26/18 19:40 Nasal Cannula 2.0 10/26/18 19:39 Nasal Cannula 2.0 28 10/26/18 19:27 86 10/26/18 16:00 93 10/26/18 16:00 97.5 96 20 135/72 (93) 96 10/26/18 16:00 Nasal Cannula 2.0 10/26/18 15:29 Room Air 21 10/26/18 15:29 Room Air 21 10/26/18 13:47 109 109/57 Height (Feet): 6 Height (Inches): 1.00 Weight (Pounds): 161 General Appearance: no acute distress HEENT: mucous membranes moist Respiratory/Chest: lungs clear Cardiovascular: normal rate Abdomen: soft, non tender Extremities: no edema Neurologic/Psychiatric: alert, oriented x 3, responsive Musculoskeletal: atrophy Microbiology Date/Time Source Procedure Growth Status 10/26/18 14:00 Sputum Expectorated Gram Stain - Final Resulted 10/26/18 14:00 Sputum Expectorated Sputum Culture Pending Resulted 10/24/18 17:15 Nasal Nares - Final Complete 10/24/18 17:15 Nasal Nares - Final Complete 10/24/18 18:25 Urine,Clean Catch Urine Culture - Final Mixed Gram Positive Organism Complete Current Medications Medications (Trade) Dose Ordered Sig/Itzel Route PRN Reason Start Time Stop Time Status Last Admin Dose Admin Acetaminophen (Tylenol) 650 mg Q4H PRN ORAL Mild Pain/Temp > 100.5 10/24/18 19:45 11/23/18 19:44 10/27/18 03:55 Cefepime HCl 1 gm/ Dextrose 55 ml @ 110 mls/hr EVERY 12 HOURS IVPB 10/25/18 21:00 11/01/18 08:59 10/27/18 09:26 Dextrose (Dextrose 50%) 25 ml Q30M PRN IV Hypoglycemia 10/24/18 14:45 11/23/18 14:44 Dextrose (Dextrose 50%) 50 ml Q30M PRN IV Hypoglycemia 10/24/18 14:45 11/23/18 14:44 Diltiazem HCl (Cardizem) 10 mg Q4H PRN IVP For HR > 120 10/25/18 21:48 11/24/18 21:47 10/26/18 08:17 Diltiazem HCl (Cardizem) 90 mg EVERY 8 HOURS ORAL 10/26/18 14:00 11/25/18 13:59 10/27/18 05:34 Docusate Sodium (Colace) 100 mg THREE TIMES A DAY ORAL 10/24/18 18:00 11/23/18 17:59 10/26/18 17:48 Folic Acid (Folate) 3 mg DAILY ORAL 10/26/18 09:30 11/25/18 09:29 10/27/18 09:27 Heparin Sodium (Porcine) (Heparin 5000 units/ml) 5,000 units EVERY 12 HOURS SUBQ 10/24/18 21:00 11/23/18 20:59 10/27/18 09:29 Insulin Aspart (NovoLOG) BEFORE MEALS AND HS SUBQ 10/24/18 16:30 11/23/18 16:29 10/27/18 12:10 Ipratropium Tyner (Atrovent) 500 mcg Q4HRT HHN 10/25/18 19:00 10/30/18 18:59 10/27/18 06:47 Multivitamins (Multivitamins) 1 tab DAILY ORAL 10/25/18 09:00 11/24/18 08:59 10/27/18 09:27 Ondansetron HCl (Zofran) 4 mg Q6H PRN IVP Nausea & Vomiting 10/24/18 14:30 11/23/18 14:29 Pantoprazole (Protonix) 40 mg DAILY ORAL 10/25/18 09:00 11/24/18 08:59 10/27/18 09:27 Patient Own Medication (Patient's Own Med) 1 ea DAILY ORAL 10/25/18 09:00 11/24/18 08:59 UNV Polyethylene Glycol (Miralax) 17 gm BEDTIME ORAL 10/24/18 21:00 11/23/18 20:59 10/26/18 20:32 Sennosides (Senokot) 8.6 mg DAILYPRN PRN ORAL Constipation 10/24/18 14:30 11/23/18 14:29 Sodium Hypochlorite (Dakin's Full Strength) 1 applic BEDTIME TOPIC 10/24/18 21:00 11/23/18 20:59 10/26/18 20:35 Sodium Chloride 1,000 ml @ 75 mls/hr [id number] IV 10/24/18 14:45 11/23/18 14:44 10/27/18 09:29 Tamsulosin HCl (Flomax) 0.4 mg BEDTIME ORAL 10/24/18 21:00 11/23/18 20:59 10/26/18 20:32 Rigo Ames MD Oct 27, 2018 12:34
--- NOTE | 2018-10-27 13:00 | NUR ---
NURSE NOTES: Pt incontinent of urine ,uses urinal but still messed up the bedsheets,bedbath,gets upset and violent if nurse insists.
[2018-10-27] MEDS: Meropenem 500 MG in NS 55 ML IVPB SCH ×2 (14:32→21:02)
--- NOTE | 2018-10-27 15:10 | Cardiac Electrophysiology PN ---
Assessment/Plan Assessment/Plan 1. Atrial fibrillation with rapid ventricular response. On Cardizem 90 mg every 6 hours p.o.Also on Cardizem 10 mg IV p.r.n. Completely ruled out [facility] protocol. His echocardiogram showed EF of 55%. On Lovenox 70 mg b.i.d. The patient may need a G-tube placement. 2. Coffee-ground emesis and GI bleed. No recurrent vomiting, but has poor oral intake. Resumed PPI. No plans for EGD or colonoscopy by Dr. Mendoza. 3. UTI and sepsis. On IV antibiotic per Dr. Rigo Ames. 4. HIV. 5. Pneumonia. 6. Diabetes. 7. Alzheimer dementia. DW RN Subjective Subjective More alert. Eating better. No CP or SOB. Objective Last 24 Hour Vital Signs Date Time Temp Pulse Resp B/P (MAP) Pulse Ox O2 Delivery O2 Flow Rate FiO2 10/27/18 14:33 82 134/57 10/27/18 12:00 97.3 92 20 134/57 (82) 97 10/27/18 12:00 Nasal Cannula 2.0 10/27/18 12:00 82 10/27/18 11:35 Room Air 10/27/18 11:35 Room Air 10/27/18 08:50 86 10/27/18 08:00 Nasal Cannula 2.0 10/27/18 08:00 97.0 80 20 96/59 (71) 98 10/27/18 07:00 97 Room Air 21 10/27/18 06:51 83 18 95 Room Air 21 10/27/18 06:47 83 18 95 Room Air 21 10/27/18 05:34 90 129/52 10/27/18 04:25 98.7 10/27/18 04:00 98.7 100 18 127/46 (73) 99 10/27/18 04:00 Nasal Cannula 2.0 10/27/18 03:34 80 10/27/18 02:39 Nasal Cannula 2.0 28 10/27/18 02:38 Nasal Cannula 2.0 28 10/27/18 00:00 98.9 97 18 123/74 (90) 99 10/27/18 00:00 Nasal Cannula 2.0 10/26/18 23:34 82 10/26/18 22:34 Nasal Cannula 2.0 28 10/26/18 22:34 Nasal Cannula 2.0 28 10/26/18 21:50 93 138/74 10/26/18 20:00 Nasal Cannula 2.0 10/26/18 20:00 98.5 94 20 137/74 (95) 99 10/26/18 19:41 98 Nasal Cannula 2.0 28 10/26/18 19:40 Nasal Cannula 2.0 28 10/26/18 19:39 Nasal Cannula 2.0 10/26/18 19:27 86 10/26/18 16:00 93 10/26/18 16:00 97.5 96 20 135/72 (93) 96 10/26/18 16:00 Nasal Cannula 2.0 10/26/18 15:29 Room Air 21 10/26/18 15:29 Room Air 21 Intake and Output 10/26/18 10/27/18 18:59 06:59 Intake Total 1647.220 ml 692.5 ml Output Total 3 ml Balance 1644.220 ml 692.5 ml Intake Oral 240 ml IV Total 1407.220 ml 692.5 ml Output Urine Total 3 ml # Bowel Movements 1 1 Microbiology Date/Time Source Procedure Growth Status 10/26/18 14:00 Sputum Expectorated Gram Stain - Final Resulted 10/26/18 14:00 Sputum Expectorated Sputum Culture Pending Resulted 10/24/18 17:15 Nasal Nares - Final Complete 10/24/18 17:15 Nasal Nares - Final Complete 10/24/18 18:25 Urine,Clean Catch Urine Culture - Final Mixed Gram Positive Organism Complete Objective HEAD AND NECK: No JVD. LUNGS: Coarse rhonchi. CARDIOVASCULAR: Shows irregularly irregular, S1 and S2 with no gallop or murmur. ABDOMEN: Soft. EXTREMITIES: Lower extremities are contracted with no edema. Uri Abdullahi MD Oct 27, 2018 15:10
--- NOTE | 2018-10-27 15:47 | General Progress Note ---
Assessment/Plan Problem List: (1) Sepsis ICD Codes: A41.9 - Sepsis, unspecified organism SNOMED: 33044104 (2) Tachycardia ICD Codes: R00.0 - Tachycardia, unspecified SNOMED: 9156329 (3) GI bleed ICD Codes: K92.2 - Gastrointestinal hemorrhage, unspecified SNOMED: 64698768 (4) Coffee ground emesis ICD Codes: K92.0 - Hematemesis SNOMED: 39888667 (5) Fever ICD Codes: R50.9 - Fever, unspecified SNOMED: 194759135 (6) Pneumonia ICD Codes: J18.9 - Pneumonia, unspecified organism SNOMED: 790007541 (7) BPH (benign prostatic hyperplasia) ICD Codes: N40.0 - Benign prostatic hyperplasia without lower urinary tract symptoms SNOMED: 822784325 Status: stable, unchanged Assessment/Plan: not hypoxic poor foot hygeine.consulted dr george reviewed chart sepsis pna no wheezing nac gi bleed aids cachexia multiple wounds Subjective ROS Limited/Unobtainable: Yes Allergies: Coded Allergies: CHEESE (Verified Allergy, Severe, 10/24/18) Objective Last 24 Hour Vital Signs Date Time Temp Pulse Resp B/P (MAP) Pulse Ox O2 Delivery O2 Flow Rate FiO2 10/27/18 15:20 Room Air 10/27/18 15:20 Room Air 10/27/18 14:33 82 134/57 10/27/18 12:00 97.3 92 20 134/57 (82) 97 10/27/18 12:00 Nasal Cannula 2.0 10/27/18 12:00 82 10/27/18 11:35 Room Air 10/27/18 11:35 Room Air 10/27/18 08:50 86 10/27/18 08:00 Nasal Cannula 2.0 10/27/18 08:00 97.0 80 20 96/59 (71) 98 10/27/18 07:00 97 Room Air 21 10/27/18 06:51 83 18 95 Room Air 21 10/27/18 06:47 83 18 95 Room Air 21 10/27/18 05:34 90 129/52 10/27/18 04:25 98.7 10/27/18 04:00 98.7 100 18 127/46 (73) 99 10/27/18 04:00 Nasal Cannula 2.0 10/27/18 03:34 80 10/27/18 02:39 Nasal Cannula 2.0 28 10/27/18 02:38 Nasal Cannula 2.0 10/27/18 00:00 98.9 97 18 123/74 (90) 99 10/27/18 00:00 Nasal Cannula 2.0 10/26/18 23:34 82 10/26/18 22:34 Nasal Cannula 2.0 10/26/18 22:34 Nasal Cannula 2.0 10/26/18 21:50 93 138/74 10/26/18 20:00 Nasal Cannula 2.0 10/26/18 20:00 98.5 94 20 137/74 (95) 99 10/26/18 19:41 98 Nasal Cannula 2.0 10/26/18 19:40 Nasal Cannula 2.0 10/26/18 19:39 Nasal Cannula 2.0 10/26/18 19:27 86 10/26/18 16:00 93 10/26/18 16:00 97.5 96 20 135/72 (93) 96 10/26/18 16:00 Nasal Cannula 2.0 Intake and Output 10/26/18 10/27/18 18:59 06:59 Intake Total 1647.220 ml 692.5 ml Output Total 3 ml Balance 1644.220 ml 692.5 ml Intake Oral 240 ml IV Total 1407.220 ml 692.5 ml Output Urine Total 3 ml # Bowel Movements 1 1 Height (Feet): 6 Height (Inches): 1.00 Weight (Pounds): 161 Cardiovascular: normal rate Respiratory/Chest: lungs clear Abdomen: soft Suresh Lindquist MD Oct 27, 2018 15:47
--- NOTE | 2018-10-27 16:05 | Surgery Progress Note ---
Surgery Progress Note Subjective Additional Comments no acute events. overall stable. respiratory improved labs noted micro noted Objective Last 24 Hour Vital Signs Date Time Temp Pulse Resp B/P (MAP) Pulse Ox O2 Delivery O2 Flow Rate FiO2 10/27/18 15:20 Room Air 10/27/18 15:20 Room Air 10/27/18 14:33 82 134/57 10/27/18 12:00 97.3 92 20 134/57 (82) 97 10/27/18 12:00 Nasal Cannula 2.0 10/27/18 12:00 82 10/27/18 11:35 Room Air 10/27/18 11:35 Room Air 10/27/18 08:50 86 10/27/18 08:00 Nasal Cannula 2.0 10/27/18 08:00 97.0 80 20 96/59 (71) 98 10/27/18 07:00 97 Room Air 10/27/18 06:51 83 18 95 Room Air 10/27/18 06:47 83 18 95 Room Air 10/27/18 05:34 90 129/52 10/27/18 04:25 98.7 10/27/18 04:00 98.7 100 18 127/46 (73) 99 10/27/18 04:00 Nasal Cannula 2.0 10/27/18 03:34 80 10/27/18 02:39 Nasal Cannula 2.0 10/27/18 02:38 Nasal Cannula 2.0 10/27/18 00:00 98.9 97 18 123/74 (90) 99 10/27/18 00:00 Nasal Cannula 2.0 10/26/18 23:34 82 10/26/18 22:34 Nasal Cannula 2.0 10/26/18 22:34 Nasal Cannula 2.0 10/26/18 21:50 93 138/74 10/26/18 20:00 Nasal Cannula 2.0 10/26/18 20:00 98.5 94 20 137/74 (95) 99 10/26/18 19:41 98 Nasal Cannula 2.0 28 10/26/18 19:40 Nasal Cannula 2.0 10/26/18 19:39 Nasal Cannula 2.0 10/26/18 19:27 86 I&O Intake and Output 10/26/18 10/27/18 18:59 06:59 Intake Total 1647.220 ml 692.5 ml Output Total 3 ml Balance 1644.220 ml 692.5 ml Intake Oral 240 ml IV Total 1407.220 ml 692.5 ml Output Urine Total 3 ml # Bowel Movements 1 1 Dressing: saturated Wound: other Cardiovascular: RSR Respiratory: decreased breath sounds Abdomen: soft, present bowel sounds, non-distended Extremities: no cyanosis Plan Problems: (1) GI bleed (2) Coffee ground emesis (3) Fever (4) Pneumonia (5) BPH (benign prostatic hyperplasia) (6) Tachycardia (7) Sepsis Assessment & Plan: tachycardic leukocytosis improving pna lactic acidosis iv fluid hydration trend labs will follow (8) Decubitus skin ulcer Assessment & Plan: Pt presented on admission with multiple pressure injuries. Staff on unit reports pt resistive to wound care and to being repositioned. Initially pt was resistive and attempted to hit staff but with encouragement pt apologized and consented to have staff evaluate wounds. Maroon area without induration or fluctuance noted to L thoracic area.(L)2cm x ( W)1cm. #2 areas of Unstageable pressure injuries noted to lumbar spine(proximal wound) (L)1cm x (W)0.9cm.100% yellow slough with marginal erythema noted.(inferior wound)(L)1cm x (W)1cm.Base of wound has 100% slough with marginal erythema.Periwound skin is pink. Unstageable pressure injury noted to L but in close proximity lumbar spine. Base of wound has 100% slough with marginal erythema.(L)0.4cm x (W)0.3cm. Non- blanchable erythema without induration periwound. Unstageable pressure injury sacrum.Base of wound has 100% slough with marginal erythema.(L)0.8cm x (W)0.9cm. Non-blanchable erythema without induration periwound. Partial thickness pressure injury noted to R trochanter. Base of wound moist - viable.(L)1.5cm x (W)0.5cm. Borders and periwound dark brown with dry peeling skin. Unstageable pressure injury with necrosis centrally with surrounding erythematous base. (+) maceration along edges.Periwound with dry ,brown peeling skin .No induration or erythema periwound. No odor noted.(L)9 cm x (W)7.5cm. Non-blanchable erythema without induration or fluctuance noted to L lateral malleolus. Pt educated on wound prevention. Pt educated of risks vs benefits on compliance with wound care and to being repositioned. Pt stated he was unaware of stages of wounds and expressed appreciation for wound care but still became agitated while being repositioned. Tx.Plan: Cleanse L trochanteric wound with Saline. Apply Therahoney. Apply Moisture Barrier to borders and periwound. Cover with Optifoam drsg Daily and prn. Cleanse wounds lumbar spine and sacral area with Saline. Apply Therahoney to each wound . Apply Cavilon Skin Barrier to borders of each wound. Cover wounds with Optifoam drsg. Change every 3 days and prn. Apply Cavilon Skin Barrier to L thoracic.Cover with Optifoam drsg. Change every 7 days and prn. Apply Cavilon Skin Barrier to both heels. Cover each heel with Optifoam drsg. Change every 7 days and prn. Apply Cavilon Skin Barrier to L lateral malleolus. Cover with Optifoam drsg. Change every 7 days and prn. Reposition at least every 2hours or as tolerated. Off-load heels with pillow. APM/MACKENZIE mattress overlay. Michael Clay Oct 27, 2018 16:05
[2018-10-27] MEDS ORDERED: Tubing IV Secondary IV ONE (18:00)
--- NOTE | 2018-10-27 18:09 | Pulmonology Progress Note ---
Assessment/Plan Assessment/Plan Pulmonary Progress Noted HPI Patient is a 77 year old man with history of HIV, Dementia, Diabetes, CAD who presents from a group home facility after a reported episode of emesis. Noted to have sinus tachycardia and evidence of pneumonia in the ED. The patient himself has no specific complaints. He denies pain. He denies cough or congestion. He denies shortness of breath. He has no specific complaints. Feels improved. Multiple decubitus ulcers Allergies: No Known Allergies Past Medical History: DM, CAD, dementia, HIV All Other Systems: negative except mentioned in HPI Physical Exam Vital Signs Noted General Appearance: no apparent distress, alert, GCS 15, non-toxic, chronically ill appearing Head: normocephalic, atraumatic Eyes: bilateral eye normal inspection, bilateral eye PERRL ENT: hearing grossly normal, normal pharynx, no angioedema, normal voice Neck: normal inspection, full range of motion Respiratory: chest non-tender, lungs clear, normal breath sounds, no respiratory distress, no retraction, no accessory muscle use, speaking full sentences Cardiovascular: no edema, tachycardia, HS normal Gastrointestinal: normal bowel sounds, non tender, soft, non-distended, no guarding, no rebound Rectal: deferred Musculoskeletal: normal inspection, normal range of motion, non-tender Neurologic: alert, responsive, motor strength/tone normal, speech normal Impression: Pneumonia Decubitus ulcers Sepsis HIV Dementia Diabetes - glucose 342 CAD Plan IV Antibiotics per ID IVF PRN ST eval swallow Protonix PPX HHN O2 PRN EKG: Rate: tachycardiac - S.tachycardia ST Segments: no acute changes Chest X-Ray: no pneumothorax, other - LLL opacity Subjective ROS Limited/Unobtainable: No Allergies: Coded Allergies: CHEESE (Verified Allergy, Severe, 10/24/18) Objective Last 24 Hour Vital Signs Date Time Temp Pulse Resp B/P (MAP) Pulse Ox O2 Delivery O2 Flow Rate FiO2 10/27/18 16:23 89 10/27/18 15:20 Room Air 10/27/18 15:20 Room Air 10/27/18 14:33 82 134/57 10/27/18 12:00 97.3 92 20 134/57 (82) 97 10/27/18 12:00 Nasal Cannula 2.0 10/27/18 12:00 82 10/27/18 11:35 Room Air 10/27/18 11:35 Room Air 10/27/18 08:50 86 10/27/18 08:00 Nasal Cannula 2.0 10/27/18 08:00 97.0 80 20 96/59 (71) 98 10/27/18 07:00 97 Room Air 21 10/27/18 06:51 83 18 95 Room Air 21 10/27/18 06:47 83 18 95 Room Air 21 10/27/18 05:34 90 129/52 10/27/18 04:25 98.7 10/27/18 04:00 98.7 100 18 127/46 (73) 99 10/27/18 04:00 Nasal Cannula 2.0 10/27/18 03:34 80 10/27/18 02:39 Nasal Cannula 2.0 28 10/27/18 02:38 Nasal Cannula 2.0 28 10/27/18 00:00 98.9 97 18 123/74 (90) 99 10/27/18 00:00 Nasal Cannula 2.0 10/26/18 23:34 82 10/26/18 22:34 Nasal Cannula 2.0 28 10/26/18 22:34 Nasal Cannula 2.0 28 10/26/18 21:50 93 138/74 10/26/18 20:00 Nasal Cannula 2.0 10/26/18 20:00 98.5 94 20 137/74 (95) 99 10/26/18 19:41 98 Nasal Cannula 2.0 28 10/26/18 19:40 Nasal Cannula 2.0 28 10/26/18 19:39 Nasal Cannula 2.0 28 10/26/18 19:27 86 Intake and Output 10/26/18 10/27/18 19:00 07:00 Intake Total 1497.220 ml 692.5 ml Output Total 3 ml Balance 1494.220 ml 692.5 ml Intake Oral 240 ml IV Total 1257.220 ml 692.5 ml Output Urine Total 3 ml # Bowel Movements 1 1 Microbiology Date/Time Source Procedure Growth Status 10/26/18 14:00 Sputum Expectorated Gram Stain - Final Resulted 10/26/18 14:00 Sputum Expectorated Sputum Culture Pending Resulted 10/24/18 18:25 Urine,Clean Catch Urine Culture - Final Mixed Gram Positive Organism Complete Current Medications Medications (Trade) Dose Ordered Sig/Itzel Route PRN Reason Start Time Stop Time Status Last Admin Dose Admin Acetaminophen (Tylenol) 650 mg Q4H PRN ORAL Mild Pain/Temp > 100.5 10/24/18 19:45 11/23/18 19:44 10/27/18 03:55 Dextrose (Dextrose 50%) 25 ml Q30M PRN IV Hypoglycemia 10/24/18 14:45 11/23/18 14:44 Dextrose (Dextrose 50%) 50 ml Q30M PRN IV Hypoglycemia 10/24/18 14:45 11/23/18 14:44 Diltiazem HCl (Cardizem) 10 mg Q4H PRN IVP For HR > 120 10/25/18 21:48 11/24/18 21:47 10/26/18 08:17 Diltiazem HCl (Cardizem) 90 mg EVERY 8 HOURS ORAL 10/26/18 14:00 11/25/18 13:59 10/27/18 14:33 Docusate Sodium (Colace) 100 mg THREE TIMES A DAY ORAL 10/24/18 18:00 11/23/18 17:59 10/26/18 17:48 Folic Acid (Folate) 3 mg DAILY ORAL 10/26/18 09:30 11/25/18 09:29 10/27/18 09:27 Heparin Sodium (Porcine) (Heparin 5000 units/ml) 5,000 units EVERY 12 HOURS SUBQ 10/24/18 21:00 11/23/18 20:59 10/27/18 09:29 Insulin Aspart (NovoLOG) BEFORE MEALS AND HS SUBQ 10/24/18 16:30 11/23/18 16:29 10/27/18 17:57 Ipratropium [place] (Atrovent) 500 mcg Q4HRT HHN 10/25/18 19:00 10/30/18 18:59 10/27/18 06:47 Meropenem 500 mg/ Sodium Chloride 55 ml @ 110 mls/hr EVERY 8 HOURS IVPB 10/27/18 14:00 11/01/18 13:59 10/27/18 14:32 Multivitamins (Multivitamins) 1 tab DAILY ORAL 10/25/18 09:00 11/24/18 08:59 10/27/18 09:27 Ondansetron HCl (Zofran) 4 mg Q6H PRN IVP Nausea & Vomiting 10/24/18 14:30 11/23/18 14:29 Pantoprazole (Protonix) 40 mg DAILY ORAL 10/25/18 09:00 11/24/18 08:59 10/27/18 09:27 Patient Own Medication (Patient's Own Med) 1 ea DAILY ORAL 10/25/18 09:00 11/24/18 08:59 UNV Polyethylene Glycol (Miralax) 17 gm BEDTIME ORAL 10/24/18 21:00 11/23/18 20:59 10/26/18 20:32 Sennosides (Senokot) 8.6 mg DAILYPRN PRN ORAL Constipation 10/24/18 14:30 11/23/18 14:29 Sodium Hypochlorite (Dakin's Full Strength) 1 applic BEDTIME TOPIC 10/24/18 21:00 11/23/18 20:59 10/26/18 20:35 Sodium Chloride 1,000 ml @ 75 mls/hr [id number] IV 10/24/18 14:45 11/23/18 14:44 10/27/18 09:29 Tamsulosin HCl (Flomax) 0.4 mg BEDTIME ORAL 10/24/18 21:00 11/23/18 20:59 10/26/18 20:32 Rasta Candelario MD Oct 27, 2018 18:09
--- NOTE | 2018-10-27 18:46 | Nephrology Progress Note ---
Assessment/Plan Problem List: (1) Sepsis (2) Tachycardia (3) Hypotension Assessment Hypotension UTI pneumonia, lactic acidosis, acute renal failure, diabetes mellitus with hyperglycemia, Alzheimer dementia. Plan Albumin bolus check renal parameters per orders midodrine for low bp antibiotics Subjective ROS Limited/Unobtainable: No Constitutional: Reports: malaise, weakness Objective Objective Last 24 Hour Vital Signs Date Time Temp Pulse Resp B/P (MAP) Pulse Ox O2 Delivery O2 Flow Rate FiO2 10/27/18 16:23 89 10/27/18 15:20 Room Air 10/27/18 15:20 Room Air 10/27/18 14:33 82 134/57 10/27/18 12:00 97.3 92 20 134/57 (82) 97 10/27/18 12:00 Nasal Cannula 2.0 10/27/18 12:00 82 10/27/18 11:35 Room Air 10/27/18 11:35 Room Air 10/27/18 08:50 86 10/27/18 08:00 Nasal Cannula 2.0 10/27/18 08:00 97.0 80 20 96/59 (71) 98 10/27/18 07:00 97 Room Air 21 10/27/18 06:51 83 18 95 Room Air 21 10/27/18 06:47 83 18 95 Room Air 21 10/27/18 05:34 90 129/52 10/27/18 04:25 98.7 10/27/18 04:00 98.7 100 18 127/46 (73) 99 10/27/18 04:00 Nasal Cannula 2.0 10/27/18 03:34 80 10/27/18 02:39 Nasal Cannula 2.0 10/27/18 02:38 Nasal Cannula 2.0 10/27/18 00:00 98.9 97 18 123/74 (90) 99 10/27/18 00:00 Nasal Cannula 2.0 10/26/18 23:34 82 10/26/18 22:34 Nasal Cannula 2.0 10/26/18 22:34 Nasal Cannula 2.0 10/26/18 21:50 93 138/74 10/26/18 20:00 Nasal Cannula 2.0 10/26/18 20:00 98.5 94 20 137/74 (95) 99 10/26/18 19:41 98 Nasal Cannula 2.0 10/26/18 19:40 Nasal Cannula 2.0 10/26/18 19:39 Nasal Cannula 2.0 10/26/18 19:27 86 Intake and Output 10/26/18 10/27/18 19:00 07:00 Intake Total 1497.220 ml 692.5 ml Output Total 3 ml Balance 1494.220 ml 692.5 ml Intake Oral 240 ml IV Total 1257.220 ml 692.5 ml Output Urine Total 3 ml # Bowel Movements 1 1 Height (Feet): 6 Height (Inches): 1.00 Weight (Pounds): 161 General Appearance: no apparent distress Cardiovascular: normal rate Respiratory/Chest: decreased breath sounds Abdomen: soft Randal Matamoros MD Oct 27, 2018 18:46
--- NOTE | 2018-10-27 19:15 | NUR ---
NURSE NOTES: Pt report received from Lidya NORIEGA. pt appears to be resting in bed watching TV. pt is alert and oriented times 4 and able to respond to simple questions. pt is on 2 L NC and is satturating at 99% with no acute signs symptoms of resp distress noted. pt is on a broom handle dipper and is showing ST (105), no other signs symptoms of acute cardiac distress noted. all safety precautions are active, bed locked and low, call light within easy reach, bed rails up times 3, bed armed. will continue plan of care.
--- NOTE | 2018-10-27 19:25 | NUR ---
HAND-OFF: Report given to Peter Riddle RN..
--- NOTE | 2018-10-27 19:30 | NUR ---
NURSE NOTES: Pt refused Atrovent Breathing treatment.
--- NOTE | 2018-10-27 19:35 | NUR ---
RESPIRATORY NOTE: Pt refusing breathing treatment. ANDREA Green aware
[2018-10-27 20:00] VITALS: BP 97/63
[2018-10-27] MEDS: Tamsulosin 0.4mg cap ORAL SCH (20:31)
[2018-10-27] MEDS: Miralax 17gm pkt ORAL SCH (20:31)
[2018-10-27] MEDS: Dakin's 0.5% (Full Strength) 16oz TOPIC SCH (20:33)
--- NOTE | 2018-10-27 21:29 | NUR ---
NURSE NOTES called [facility] and primary number and left a message in regards to pt refusing all care/ medications. awaiting new orders.
--- NOTE | 2018-10-27 21:33 | NUR ---
NURSE NOTES: Pt refused Cardizem Medication. medication safely returned to [facility].
--- NOTE | 2018-10-27 23:54 | NUR ---
NURSE NOTES: Spoke with MD Lindquist in regards to Pt Refusing medications, and numerous/ other care in hospital. MD márquez.
[2018-10-28] VITALS (7 sets, daily range): BP systolic 95–130; BP diastolic 56–78
[2018-10-28] MEDS: Ipratropium 0.02% Inh Soln 2.5ml UD HHN SCH ×7 (03:32→23:00)
--- NOTE | 2018-10-28 04:28 | NUR ---
NURSE NOTES: Pt refused Blood Draw/ Labs.
[2018-10-28] MEDS: Meropenem 500 MG in NS 55 ML IVPB SCH ×3 (06:47→22:21)
[2018-10-28] MEDS: dilTIAZem HCl 90mg tab ORAL SCH ×4 (06:48→21:15)
[2018-10-28] MEDS: NovoLOG Insulin Flexpen SUBQ SCH ×4 (06:49→21:09)
--- NOTE | 2018-10-28 07:15 | NUR ---
HAND-OFF: Report given to Lidya NORIEGA.
--- NOTE | 2018-10-28 07:20 | NUR ---
NURSE NOTES: Report received from Peter Riddle RN.Pt resting in bed awake,alert in no resp distress,on RA refused to wear O2 ,denies any c/o pain or discomfort,SR on the monitor ,IV sites x2 RFA with NS at 75 ml/hr and RAC heplock,skin warm and dry ,SR up x2 call brewer within reach at bedside,HOB elevated,bed lock in lowest position will continue with plans of care.
[2018-10-28] MEDS: Docusate 100mg cap ORAL SCH ×3 (09:34→18:00)
[2018-10-28] MEDS: Heparin 5000 units/ml inj SUBQ SCH ×3 (09:36→21:09)
[2018-10-28] MEDS ORDERED: Potassium Phosphate 20 MM in NS 275 ML IV ONE (10:30)
--- NOTE | 2018-10-28 10:50 | General Progress Note ---
Assessment/Plan Problem List: (1) Coffee ground emesis ICD Codes: K92.0 - Hematemesis SNOMED: 64412104 (2) Fever ICD Codes: R50.9 - Fever, unspecified SNOMED: 043568295 (3) BPH (benign prostatic hyperplasia) ICD Codes: N40.0 - Benign prostatic hyperplasia without lower urinary tract symptoms SNOMED: 494221766 (4) Pneumonia ICD Codes: J18.9 - Pneumonia, unspecified organism SNOMED: 862123406 (5) Afib ICD Codes: I48.91 - Unspecified atrial fibrillation SNOMED: 23723593 (6) Decubitus skin ulcer ICD Codes: L89.90 - Pressure ulcer of unspecified site, unspecified stage SNOMED: 478033486 (7) HIV (human immunodeficiency virus infection) ICD Codes: B20 - Human immunodeficiency virus [HIV] disease SNOMED: 02740682 Status: stable, unchanged Assessment/Plan: no recurrent vomiting poor po intake ppi stable H&H no plans for EGD or colonoscopy at this time fu labs supportive care fu cardiology recs wound care Subjective ROS Limited/Unobtainable: Yes Allergies: Coded Allergies: CHEESE (Verified Allergy, Severe, 10/24/18) Objective Last 24 Hour Vital Signs Date Time Temp Pulse Resp B/P (MAP) Pulse Ox O2 Delivery O2 Flow Rate FiO2 10/28/18 08:00 98.5 100 20 95/56 (69) 98 10/28/18 07:44 98 10/28/18 06:50 Room Air 10/28/18 06:50 Room Air 10/28/18 06:49 98 Room Air 21 10/28/18 06:48 89 107/69 10/28/18 04:00 Nasal Cannula 2.0 10/28/18 04:00 98.2 87 19 113/64 (80) 98 10/28/18 03:37 89 10/28/18 03:32 Room Air 21 10/28/18 03:31 Room Air 21 10/28/18 00:00 Nasal Cannula 2.0 10/28/18 00:00 98.1 89 19 113/69 (84) 99 10/27/18 23:38 90 10/27/18 22:42 Room Air 21 10/27/18 22:42 Room Air 21 10/27/18 21:06 102 104/64 10/27/18 20:00 97.9 104 20 97/63 (74) 99 10/27/18 20:00 89 10/27/18 20:00 Nasal Cannula 2.0 10/27/18 19:30 99 10/27/18 18:58 Room Air 21 10/27/18 18:58 Room Air 21 10/27/18 18:58 97 Room Air 21 10/27/18 16:23 89 10/27/18 16:00 Nasal Cannula 2.0 10/27/18 15:20 Room Air 10/27/18 15:20 Room Air 10/27/18 14:33 82 134/57 10/27/18 12:00 97.3 92 20 134/57 (82) 97 10/27/18 12:00 Nasal Cannula 2.0 10/27/18 12:00 82 10/27/18 11:35 Room Air 10/27/18 11:35 Room Air Intake and Output 10/27/18 10/28/18 19:00 07:00 Intake Total 1710 ml 955 ml Output Total 3 ml Balance 1707 ml 955 ml Intake Oral 960 ml IV Total 750 ml 955 ml Output Urine Total 3 ml # Bowel Movements 1 Height (Feet): 6 Height (Inches): 1.00 Weight (Pounds): 161 General Appearance: no apparent distress EENT: normal ENT inspection Neck: supple Cardiovascular: normal rate Respiratory/Chest: decreased breath sounds Abdomen: normal bowel sounds, non tender, soft Extremities: non-tender Fernie Mendoza MD Oct 28, 2018 10:50
--- NOTE | 2018-10-28 11:00 | NUR ---
NURSE NOTES: Dr Matamoros asking for Lab results but pt refused lab drawings at 0400.Called Lab,orthodontic laboratory technician at bedside,but pt refused.
--- NOTE | 2018-10-28 11:11 | Nephrology Progress Note ---
Assessment/Plan Problem List: (1) Sepsis (2) Tachycardia (3) Hypotension Assessment Hypotension UTI pneumonia, lactic acidosis, acute renal failure, diabetes mellitus with hyperglycemia, Alzheimer dementia. Plan todays lab pending Albumin bolus check renal parameters per orders midodrine for low bp antibiotics Subjective ROS Limited/Unobtainable: No Constitutional: Reports: malaise Objective Objective Last 24 Hour Vital Signs Date Time Temp Pulse Resp B/P (MAP) Pulse Ox O2 Delivery O2 Flow Rate FiO2 10/28/18 11:07 Room Air 10/28/18 11:07 Room Air 10/28/18 08:00 98.5 100 20 95/56 (69) 98 10/28/18 07:44 98 10/28/18 06:50 Room Air 10/28/18 06:50 Room Air 10/28/18 06:49 98 Room Air 10/28/18 06:48 89 107/69 10/28/18 04:00 Nasal Cannula 2.0 10/28/18 04:00 98.2 87 19 113/64 (80) 98 10/28/18 03:37 89 10/28/18 03:32 Room Air 10/28/18 03:31 Room Air 10/28/18 00:00 Nasal Cannula 2.0 10/28/18 00:00 98.1 89 19 113/69 (84) 99 10/27/18 23:38 90 10/27/18 22:42 Room Air 10/27/18 22:42 Room Air 10/27/18 21:06 102 104/64 10/27/18 20:00 97.9 104 20 97/63 (74) 99 10/27/18 20:00 89 10/27/18 20:00 Nasal Cannula 2.0 10/27/18 19:30 99 10/27/18 18:58 Room Air 10/27/18 18:58 Room Air 10/27/18 18:58 97 Room Air 10/27/18 16:23 89 10/27/18 16:00 Nasal Cannula 2.0 10/27/18 15:20 Room Air 10/27/18 15:20 Room Air 10/27/18 14:33 82 134/57 10/27/18 12:00 97.3 92 20 134/57 (82) 97 10/27/18 12:00 Nasal Cannula 2.0 10/27/18 12:00 82 10/27/18 11:35 Room Air 10/27/18 11:35 Room Air Intake and Output 10/27/18 10/28/18 19:00 07:00 Intake Total 1710 ml 955 ml Output Total 3 ml Balance 1707 ml 955 ml Intake Oral 960 ml IV Total 750 ml 955 ml Output Urine Total 3 ml # Bowel Movements 1 Height (Feet): 6 Height (Inches): 1.00 Weight (Pounds): 161 General Appearance: no apparent distress Objective no change Randal Matamoros MD Oct 28, 2018 11:11
--- NOTE | 2018-10-28 13:00 | NUR ---
NURSE NOTES: Pt did not eat breakfast and lunch ,doesnt like the food texture ; chopped food ,like to drink chocolate ensure
[2018-10-28] MEDS ORDERED: NS 275ml ONE (13:30)
--- NOTE | 2018-10-28 13:30 | General Progress Note ---
Assessment/Plan Problem List: (1) Sepsis ICD Codes: A41.9 - Sepsis, unspecified organism SNOMED: 06663793 (2) Tachycardia ICD Codes: R00.0 - Tachycardia, unspecified SNOMED: 2168925 (3) GI bleed ICD Codes: K92.2 - Gastrointestinal hemorrhage, unspecified SNOMED: 01245952 (4) Coffee ground emesis ICD Codes: K92.0 - Hematemesis SNOMED: 84462977 (5) Fever ICD Codes: R50.9 - Fever, unspecified SNOMED: 454010646 (6) Pneumonia ICD Codes: J18.9 - Pneumonia, unspecified organism SNOMED: 536288133 (7) BPH (benign prostatic hyperplasia) ICD Codes: N40.0 - Benign prostatic hyperplasia without lower urinary tract symptoms SNOMED: 565225360 Status: stable, unchanged Assessment/Plan: malnutrition reviewed chart and labs and meds gi bleed aids cachexia multiple wounds Subjective ROS Limited/Unobtainable: Yes Allergies: Coded Allergies: CHEESE (Verified Allergy, Severe, 10/24/18) Objective Last 24 Hour Vital Signs Date Time Temp Pulse Resp B/P (MAP) Pulse Ox O2 Delivery O2 Flow Rate FiO2 10/28/18 11:07 Room Air 21 10/28/18 11:07 Room Air 21 10/28/18 08:00 98.5 100 20 95/56 (69) 98 10/28/18 07:44 98 10/28/18 06:50 Room Air 10/28/18 06:50 Room Air 10/28/18 06:49 98 Room Air 10/28/18 06:48 89 107/69 10/28/18 04:00 Nasal Cannula 2.0 10/28/18 04:00 98.2 87 19 113/64 (80) 98 10/28/18 03:37 89 10/28/18 03:32 Room Air 21 10/28/18 03:31 Room Air 21 10/28/18 00:00 Nasal Cannula 2.0 10/28/18 00:00 98.1 89 19 113/69 (84) 99 10/27/18 23:38 90 10/27/18 22:42 Room Air 21 10/27/18 22:42 Room Air 21 10/27/18 21:06 102 104/64 10/27/18 20:00 97.9 104 20 97/63 (74) 99 10/27/18 20:00 89 10/27/18 20:00 Nasal Cannula 2.0 10/27/18 19:30 99 10/27/18 18:58 Room Air 21 10/27/18 18:58 Room Air 21 10/27/18 18:58 97 Room Air 21 10/27/18 16:23 89 10/27/18 16:00 Nasal Cannula 2.0 10/27/18 15:20 Room Air 10/27/18 15:20 Room Air 10/27/18 14:33 82 134/57 Intake and Output 10/27/18 10/28/18 18:59 06:59 Intake Total 1635 ml 1030 ml Output Total 3 ml Balance 1632 ml 1030 ml Intake Oral 960 ml IV Total 675 ml 1030 ml Output Urine Total 3 ml # Bowel Movements 1 Height (Feet): 6 Height (Inches): 1.00 Weight (Pounds): 161 Cardiovascular: normal rate Respiratory/Chest: lungs clear Abdomen: soft Suresh Lindquist MD Oct 28, 2018 13:30
--- NOTE | 2018-10-28 13:45 | Cardiac Electrophysiology PN ---
Assessment/Plan Assessment/Plan 1. Atrial fibrillation with rapid ventricular response. In SR today On Cardizem 90 mg every 6 hours p.o and Cardizem 10 mg IV p.r.n. But refused Cardizem yesterday and today Ruled out OK protocol. EF of 55%. On Heparin 5000 sq bid The patient may need a G-tube placement. 2. Coffee-ground emesis and GI bleed. No recurrent vomiting, but has poor oral intake. Resumed PPI. HB stable. No plans for EGD or colonoscopy by Dr. Mendoza. 3. UTI and sepsis. On IV antibiotic per Dr. Rigo Ames. 4. HIV. 5. Pneumonia. 6. Diabetes. 7. Alzheimer dementia. DW RN Subjective Subjective Eating better. No CP or SOB. Refusing labs and refused abd X ray Objective Last 24 Hour Vital Signs Date Time Temp Pulse Resp B/P (MAP) Pulse Ox O2 Delivery O2 Flow Rate FiO2 10/28/18 11:07 Room Air 10/28/18 11:07 Room Air 10/28/18 08:00 98.5 100 20 95/56 (69) 98 10/28/18 07:44 98 10/28/18 06:50 Room Air 21 10/28/18 06:50 Room Air 21 10/28/18 06:49 98 Room Air 10/28/18 06:48 89 107/69 10/28/18 04:00 Nasal Cannula 2.0 10/28/18 04:00 98.2 87 19 113/64 (80) 98 10/28/18 03:37 89 10/28/18 03:32 Room Air 21 10/28/18 03:31 Room Air 21 10/28/18 00:00 Nasal Cannula 2.0 10/28/18 00:00 98.1 89 19 113/69 (84) 99 10/27/18 23:38 90 10/27/18 22:42 Room Air 21 10/27/18 22:42 Room Air 10/27/18 21:06 102 104/64 10/27/18 20:00 97.9 104 20 97/63 (74) 99 10/27/18 20:00 89 10/27/18 20:00 Nasal Cannula 2.0 10/27/18 19:30 99 10/27/18 18:58 Room Air 21 10/27/18 18:58 Room Air 21 10/27/18 18:58 97 Room Air 21 10/27/18 16:23 89 10/27/18 16:00 Nasal Cannula 2.0 10/27/18 15:20 Room Air 10/27/18 15:20 Room Air 10/27/18 14:33 82 134/57 Intake and Output 10/27/18 10/28/18 19:00 07:00 Intake Total 1710 ml 955 ml Output Total 3 ml Balance 1707 ml 955 ml Intake Oral 960 ml IV Total 750 ml 955 ml Output Urine Total 3 ml # Bowel Movements 1 Microbiology Date/Time Source Procedure Growth Status 10/26/18 14:00 Sputum Expectorated Gram Stain - Final Resulted 10/26/18 14:00 Sputum Expectorated Sputum Culture Pending Resulted Objective HEAD AND NECK: No JVD. LUNGS: Coarse rhonchi. CARDIOVASCULAR: Shows irregularly irregular, S1 and S2 with no gallop or murmur. ABDOMEN: Soft. EXTREMITIES: Lower extremities are contracted with no edema. Uri Abdullahi MD Oct 28, 2018 13:45
--- NOTE | 2018-10-28 14:00 | NUR ---
NURSE NOTES: RFA noted swollen ,IVF turned off,wanted to check IV site but pt refused to be touched,becomes physically violent when nurse insist.
--- NOTE | 2018-10-28 14:04 | Surgery Progress Note ---
Surgery Progress Note Subjective Additional Comments patient non compliant with care plans. would not allow for evaluation of wounds today. incontinence Objective Last 24 Hour Vital Signs Date Time Temp Pulse Resp B/P (MAP) Pulse Ox O2 Delivery O2 Flow Rate FiO2 10/28/18 11:44 91 10/28/18 11:07 Room Air 21 10/28/18 11:07 Room Air 21 10/28/18 08:00 98.5 100 20 95/56 (69) 98 10/28/18 07:44 98 10/28/18 06:50 Room Air 10/28/18 06:50 Room Air 21 10/28/18 06:49 98 Room Air 21 10/28/18 06:48 89 107/69 10/28/18 04:00 Nasal Cannula 2.0 10/28/18 04:00 98.2 87 19 113/64 (80) 98 10/28/18 03:37 89 10/28/18 03:32 Room Air 10/28/18 03:31 Room Air 21 10/28/18 00:00 Nasal Cannula 2.0 10/28/18 00:00 98.1 89 19 113/69 (84) 99 10/27/18 23:38 90 10/27/18 22:42 Room Air 21 10/27/18 22:42 Room Air 10/27/18 21:06 102 104/64 10/27/18 20:00 97.9 104 20 97/63 (74) 99 10/27/18 20:00 89 10/27/18 20:00 Nasal Cannula 2.0 10/27/18 19:30 99 10/27/18 18:58 Room Air 10/27/18 18:58 Room Air 21 10/27/18 18:58 97 Room Air 10/27/18 16:23 89 10/27/18 16:00 Nasal Cannula 2.0 10/27/18 15:20 Room Air 10/27/18 15:20 Room Air 10/27/18 14:33 82 134/57 I&O Intake and Output 10/27/18 10/28/18 18:59 06:59 Intake Total 1635 ml 1030 ml Output Total 3 ml Balance 1632 ml 1030 ml Intake Oral 960 ml IV Total 675 ml 1030 ml Output Urine Total 3 ml # Bowel Movements 1 Dressing: saturated Wound: other Drains: other Cardiovascular: RSR Respiratory: decreased breath sounds Abdomen: soft, present bowel sounds, non-distended Extremities: no tenderness, no cyanosis, other Plan Problems: (1) GI bleed (2) Coffee ground emesis (3) Fever (4) Pneumonia (5) BPH (benign prostatic hyperplasia) (6) Tachycardia (7) Sepsis Assessment & Plan: tachycardic leukocytosis improving pna lactic acidosis iv fluid hydration trend labs will follow (8) Decubitus skin ulcer Assessment & Plan: Pt presented on admission with multiple pressure injuries. Staff on unit reports pt resistive to wound care and to being repositioned. Initially pt was resistive and attempted to hit staff but with encouragement pt apologized and consented to have staff evaluate wounds. Maroon area without induration or fluctuance noted to L thoracic area.(L)2cm x ( W)1cm. #2 areas of Unstageable pressure injuries noted to lumbar spine(proximal wound) (L)1cm x (W)0.9cm.100% yellow slough with marginal erythema noted.(inferior wound)(L)1cm x (W)1cm.Base of wound has 100% slough with marginal erythema.Periwound skin is pink. Unstageable pressure injury noted to L but in close proximity lumbar spine. Base of wound has 100% slough with marginal erythema.(L)0.4cm x (W)0.3cm. Non- blanchable erythema without induration periwound. Unstageable pressure injury sacrum.Base of wound has 100% slough with marginal erythema.(L)0.8cm x (W)0.9cm. Non-blanchable erythema without induration periwound. Partial thickness pressure injury noted to R trochanter. Base of wound moist - viable.(L)1.5cm x (W)0.5cm. Borders and periwound dark brown with dry peeling skin. Unstageable pressure injury with necrosis centrally with surrounding erythematous base. (+) maceration along edges.Periwound with dry ,brown peeling skin .No induration or erythema periwound. No odor noted.(L)9 cm x (W)7.5cm. Non-blanchable erythema without induration or fluctuance noted to L lateral malleolus. Pt educated on wound prevention. Pt educated of risks vs benefits on compliance with wound care and to being repositioned. Pt stated he was unaware of stages of wounds and expressed appreciation for wound care but still became agitated while being repositioned. Tx.Plan: Cleanse L trochanteric wound with Saline. Apply Therahoney. Apply Moisture Barrier to borders and periwound. Cover with Optifoam drsg Daily and prn. Cleanse wounds lumbar spine and sacral area with Saline. Apply Therahoney to each wound . Apply Cavilon Skin Barrier to borders of each wound. Cover wounds with Optifoam drsg. Change every 3 days and prn. Apply Cavilon Skin Barrier to L thoracic.Cover with Optifoam drsg. Change every 7 days and prn. Apply Cavilon Skin Barrier to both heels. Cover each heel with Optifoam drsg. Change every 7 days and prn. Apply Cavilon Skin Barrier to L lateral malleolus. Cover with Optifoam drsg. Change every 7 days and prn. Reposition at least every 2hours or as tolerated. Off-load heels with pillow. APM/MACKENZIE mattress overlay. Michael Clay Oct 28, 2018 14:04
--- NOTE | 2018-10-28 17:51 | NUR ---
NURSE NOTES: Pt incontinent of large amount of urine,bedsheets all soaked,about to clean pt but he refused ,and RN insist but tries to hit nurse,Explained to pt the importance to be cleaned and dry since he has a sacral wound but still refused.
--- NOTE | 2018-10-28 18:33 | Pulmonology Progress Note ---
Assessment/Plan Assessment/Plan Pulmonary Progress Noted HPI Patient is a 77 year old man with history of HIV, Dementia, Diabetes, CAD who [facility] after a reported episode of emesis. Noted to have sinus tachycardia and evidence of pneumonia in the ED. The patient himself has no specific complaints. He denies pain. He denies cough or congestion. He denies shortness of breath. He has no specific complaints. Feels improved. Multiple decubitus ulcers Allergies: No Known Allergies Past Medical History: DM, CAD, dementia, HIV All Other Systems: negative except mentioned in HPI Physical Exam Vital Signs Noted General Appearance: no apparent distress, alert, GCS 15, non-toxic, chronically ill appearing Head: normocephalic, atraumatic Eyes: bilateral eye normal inspection, bilateral eye PERRL ENT: hearing grossly normal, normal pharynx, no angioedema, normal voice Neck: normal inspection, full range of motion Respiratory: chest non-tender, lungs clear, normal breath sounds, no respiratory distress, no retraction, no accessory muscle use, speaking full sentences Cardiovascular: no edema, tachycardia, HS normal Gastrointestinal: normal bowel sounds, non tender, soft, non-distended, no guarding, no rebound Rectal: deferred Musculoskeletal: normal inspection, normal range of motion, non-tender Neurologic: alert, responsive, motor strength/tone normal, speech normal Impression: Pneumonia Decubitus ulcers Sepsis HIV Dementia Diabetes - glucose 342 CAD Plan IV Antibiotics per ID IVF PRN ST eval swallow Protonix PPX HHN O2 PRN EKG: Rate: tachycardiac - S.tachycardia ST Segments: no acute changes Chest X-Ray: no pneumothorax, other - LLL opacity Subjective ROS Limited/Unobtainable: No Allergies: Coded Allergies: CHEESE (Verified Allergy, Severe, 10/24/18) Objective Last 24 Hour Vital Signs Date Time Temp Pulse Resp B/P (MAP) Pulse Ox O2 Delivery O2 Flow Rate FiO2 10/28/18 16:00 Nasal Cannula 2.0 10/28/18 16:00 94 10/28/18 15:58 97.5 98 20 130/78 (95) 98 10/28/18 15:04 Room Air 21 10/28/18 15:04 Room Air 21 10/28/18 14:25 96 99/57 10/28/18 12:00 97.1 96 20 99/57 (71) 96 10/28/18 12:00 Nasal Cannula 2.0 10/28/18 11:44 91 10/28/18 11:07 Room Air 21 10/28/18 11:07 Room Air 21 10/28/18 08:00 98.5 100 20 95/56 (69) 98 10/28/18 08:00 Nasal Cannula 2.0 10/28/18 07:44 98 10/28/18 06:50 Room Air 10/28/18 06:50 Room Air 21 10/28/18 06:49 98 Room Air 21 10/28/18 06:48 89 107/69 10/28/18 04:00 Nasal Cannula 2.0 10/28/18 04:00 98.2 87 19 113/64 (80) 98 10/28/18 03:37 89 10/28/18 03:32 Room Air 21 10/28/18 03:31 Room Air 21 10/28/18 00:00 Nasal Cannula 2.0 10/28/18 00:00 98.1 89 19 113/69 (84) 99 10/27/18 23:38 90 10/27/18 22:42 Room Air 21 10/27/18 22:42 Room Air 21 10/27/18 21:06 102 104/64 10/27/18 20:00 97.9 104 20 97/63 (74) 99 10/27/18 20:00 89 10/27/18 20:00 Nasal Cannula 2.0 10/27/18 19:30 99 10/27/18 18:58 Room Air 21 10/27/18 18:58 Room Air 10/27/18 18:58 97 Room Air 21 Intake and Output 10/27/18 10/28/18 18:59 06:59 Intake Total 1635 ml 1030 ml Output Total 3 ml Balance 1632 ml 1030 ml Intake Oral 960 ml IV Total 675 ml 1030 ml Output Urine Total 3 ml # Bowel Movements 1 Microbiology Date/Time Source Procedure Growth Status 10/26/18 14:00 Sputum Expectorated Gram Stain - Final Resulted 10/26/18 14:00 Sputum Expectorated Sputum Culture Pending Resulted Current Medications Medications (Trade) Dose Ordered Sig/Itzel Route PRN Reason Start Time Stop Time Status Last Admin Dose Admin Acetaminophen (Tylenol) 650 mg Q4H PRN ORAL Mild Pain/Temp > 100.5 10/24/18 19:45 11/23/18 19:44 10/28/18 09:58 Dextrose (Dextrose 50%) 25 ml Q30M PRN IV Hypoglycemia 10/24/18 14:45 11/23/18 14:44 Dextrose (Dextrose 50%) 50 ml Q30M PRN IV Hypoglycemia 10/24/18 14:45 11/23/18 14:44 Diltiazem HCl (Cardizem) 10 mg Q4H PRN IVP For HR > 120 10/25/18 21:48 11/24/18 21:47 10/26/18 08:17 Diltiazem HCl (Cardizem) 90 mg EVERY 8 HOURS ORAL 10/26/18 14:00 11/25/18 13:59 10/28/18 14:25 Docusate Sodium (Colace) 100 mg THREE TIMES A DAY ORAL 10/24/18 18:00 11/23/18 17:59 10/28/18 09:34 Folic Acid (Folate) 3 mg DAILY ORAL 10/26/18 09:30 11/25/18 09:29 10/28/18 09:34 Heparin Sodium (Porcine) (Heparin 5000 units/ml) 5,000 units EVERY 12 HOURS SUBQ 10/24/18 21:00 11/23/18 20:59 10/28/18 09:36 Insulin Aspart (NovoLOG) BEFORE MEALS AND HS SUBQ 10/24/18 16:30 11/23/18 16:29 10/28/18 06:49 Ipratropium [place] (Atrovent) 500 mcg Q4HRT HHN 10/25/18 19:00 10/30/18 18:59 10/27/18 06:47 Meropenem 500 mg/ Sodium Chloride 55 ml @ 110 mls/hr EVERY 8 HOURS IVPB 10/27/18 14:00 11/01/18 13:59 10/28/18 14:25 Multivitamins (Multivitamins) 1 tab DAILY ORAL 10/25/18 09:00 11/24/18 08:59 10/28/18 09:33 Ondansetron HCl (Zofran) 4 mg Q6H PRN IVP Nausea & Vomiting 10/24/18 14:30 11/23/18 14:29 Pantoprazole (Protonix) 40 mg DAILY ORAL 10/25/18 09:00 11/24/18 08:59 10/28/18 09:33 Patient Own Medication (Patient's Own Med) 1 ea DAILY ORAL 10/25/18 09:00 11/24/18 08:59 UNV Polyethylene Glycol (Miralax) 17 gm BEDTIME ORAL 10/24/18 21:00 11/23/18 20:59 10/26/18 20:32 Sennosides (Senokot) 8.6 mg DAILYPRN PRN ORAL Constipation 10/24/18 14:30 11/23/18 14:29 Sodium Hypochlorite (Dakin's Full Strength) 1 applic BEDTIME TOPIC 10/24/18 21:00 11/23/18 20:59 10/27/18 20:33 Sodium Chloride 1,000 ml @ 75 mls/hr [id number] IV 10/24/18 14:45 11/23/18 14:44 10/28/18 12:00 Tamsulosin HCl (Flomax) 0.4 mg BEDTIME ORAL 10/24/18 21:00 11/23/18 20:59 10/26/18 20:32 Rasta Candelario MD Oct 28, 2018 18:33
--- NOTE | 2018-10-28 19:15 | NUR ---
NURSE NOTES: Report received from ANDREA Bose. Observed pt lying on the bed, anxious and aggressive. SR with bus monitor noted. On room air with no signs of SOB. Noted pt is wet on the bed but refused to be cleaned up and shouts, "Leave me alone." Noted R FA swollen and IV fluid stopped. PT refused to have another IV. Explained benefits and risks and pt still refused. Bed in the lowest position. Side rails up x3. Call light within reach. Will continue to monitor.
--- NOTE | 2018-10-28 19:17 | NUR ---
HAND-OFF: Report given to Trey Mclaughlin RN. .
--- NOTE | 2018-10-28 19:54 | NUR ---
RESPIRATORY NOTE: PT. IS REFUSING BREATHING TX'S. RN. GERRI AWARE. ALL VS WNL. PT AGREED TO LET RN KNOW IF HE FELLS ANY SOB. SO RT CAN GIVE HHN TX. WILL CONTINUE TO MONITOR.
[2018-10-28] MEDS: Dakin's 0.5% (Full Strength) 16oz TOPIC SCH ×2 (21:00→21:10)
[2018-10-28] MEDS: Tamsulosin 0.4mg cap ORAL SCH ×2 (21:00→21:06)
[2018-10-28] MEDS: Miralax 17gm pkt ORAL SCH ×2 (21:00→21:09)
--- NOTE | 2018-10-28 22:38 | NUR ---
TRANSFER TO FLOOR: Patient transferred to Telemetry 221-2 via hospital bed. Report given to ANDREA Wong. Belongings and medications given to the RN. No acute distress noted at this time. ST noted on registered nurse cardiac telemetry.
--- NOTE | 2018-10-28 22:39 | NUR ---
NURSE NOTES: Patient received from Trey MENDEZ. Patietn awake with no signs of distress. Patient refused 2L nasal [place] O2 saturation at 97%. patient's IV forearm is patent and intact. Bed at its lowest position, call light in reach, and X3 bed rails are up.
--- NOTE | 2018-10-28 23:59 | NUR ---
NURSE NOTES: Patient is refusing treatment from all disciplines. Patient becomes more combative later in the evening. Will continue to monitor.
[2018-10-29] MEDS ORDERED: dilTIAZem HCl 25mg/5ml Inj IVP PRN (02:00)
[2018-10-29] MEDS: Ipratropium 0.02% Inh Soln 2.5ml UD HHN SCH ×6 (03:00→23:00)
--- NOTE | 2018-10-29 03:43 | NUR ---
NURSE NOTES: Patient bathed and wound dressing changed. Condom catheter applied and patient states he will not remove it. Patient is combative, but is willing to cooperate if given time. Patient is strong enough to helps moving his upper torso left an right with his upper extremities. Lower extremities are painful to move, but can be moved with no problems. Patient was in good spirits after bed bath.
[2018-10-29 04:00] VITALS: BP 124/59
[2018-10-29] MEDS: dilTIAZem HCl 90mg tab ORAL SCH ×3 (05:07→21:56)
[2018-10-29] MEDS: Meropenem 500 MG in NS 55 ML IVPB SCH ×3 (05:07→21:23)
[2018-10-29] MEDS: NovoLOG Insulin Flexpen SUBQ SCH ×4 (06:09→20:56)
--- NOTE | 2018-10-29 07:20 | NUR ---
HAND-OFF: Report given to Aditi Guidry RN.
--- NOTE | 2018-10-29 07:20 | NUR ---
NURSE NOTES: I received the patient awake and eating breakfast in bed. Patient alert and oriented x3. Bed in the lowest position and call light within reach. Patient does not display any signs of distress or SOB. I will continue to monitor the patient and implement care.
[2018-10-29 08:00] VITALS: BP 90/59
[2018-10-29] MEDS: Docusate 100mg cap ORAL SCH ×4 (09:00→18:00)
[2018-10-29] MEDS: Heparin 5000 units/ml inj SUBQ SCH ×3 (09:00→20:56)
[2018-10-29 09:10] LABS: ANION GAP 7 mmol/L (5-15); BLOOD UREA NITROGEN 16 mg/dL (7-18); CALCIUM 7.8 MG/DL (8.5-10.1); CARBON DIOXIDE 24 MMOL/L (21-32); CHLORIDE 108 MMOL/L (98-107); CREATININE 0.8 MG/DL (0.55-1.30); POTASSIUM 3.8 MMOL/L (3.5-5.1); SODIUM 139 MMOL/L (136-145)
[2018-10-29 09:15] LABS: ALANINE AMINOTRANSFERASE 19 U/L (12-78); ALBUMIN 1.8 G/DL (3.4-5.0); ALBUMIN/GLOBULIN RATIO 0.5 (1.0-2.7); ALKALINE PHOSPHATASE 51 U/L (46-116); ASPARTATE AMINO TRANSFERASE 22 U/L (15-37); BILIRUBIN,TOTAL 0.3 MG/DL (0.2-1.0)
--- NOTE | 2018-10-29 10:16 | GI Progress Note ---
Assessment/Plan Problems: (1) Coffee ground emesis ICD Codes: K92.0 - Hematemesis SNOMED: 88228890 (2) GI bleed ICD Codes: K92.2 - Gastrointestinal hemorrhage, unspecified SNOMED: 89536509 (3) Sepsis ICD Codes: A41.9 - Sepsis, unspecified organism SNOMED: 38333294 Status: stable, unchanged Status Narrative Discussed with Dr. Mendoza. Assessment/Plan no recurrent vomiting poor po intake ppi stable H&H no plans for EGD or colonoscopy at this time fu labs supportive care fu cardiology recs wound care The patient was seen and examined at bedside and all new and available data was reviewed in the patients chart. I agree with the above findings, impression and plan. (Patient seen earlier today. Signature stamp does not reflect patient encounter time.). - Fernie Mendoza MD Subjective Gastrointestinal/Abdominal: Reports: no symptoms Objective Last 24 Hour Vital Signs Date Time Temp Pulse Resp B/P (MAP) Pulse Ox O2 Delivery O2 Flow Rate FiO2 10/29/18 08:00 98.4 101 18 90/59 (69) 97 10/29/18 08:00 Room Air 10/29/18 07:01 97 Room Air 10/29/18 07:01 Room Air 10/29/18 07:01 Room Air 10/29/18 05:07 106 124/59 10/29/18 04:00 97.9 106 17 124/59 (80) 100 10/29/18 04:00 Room Air 10/29/18 03:45 91 10/29/18 02:33 Room Air 10/29/18 02:33 Room Air 10/29/18 00:00 103 10/28/18 23:56 Room Air 10/28/18 23:53 97.7 106 18 108/66 (80) 96 10/28/18 22:28 Room Air 21 10/28/18 22:28 Room Air 21 10/28/18 21:15 104 100/63 10/28/18 20:00 97.9 104 20 100/63 (75) 96 10/28/18 20:00 Nasal Cannula 2.0 10/28/18 20:00 99 10/28/18 19:54 98 Room Air 21 10/28/18 19:54 100 20 98 Room Air 21 10/28/18 19:54 Room Air 21 10/28/18 16:00 Nasal Cannula 2.0 10/28/18 16:00 94 10/28/18 15:58 97.5 98 20 130/78 (95) 98 10/28/18 15:04 Room Air 21 10/28/18 15:04 Room Air 21 10/28/18 14:25 96 99/57 10/28/18 12:00 97.1 96 20 99/57 (71) 96 10/28/18 12:00 Nasal Cannula 2.0 10/28/18 11:44 91 10/28/18 11:07 Room Air 21 10/28/18 11:07 Room Air 21 Intake and Output 10/28/18 10/29/18 19:00 07:00 Intake Total 1725 ml 878.75 ml Output Total 300 ml Balance 1725 ml 578.75 ml Intake Oral 1200 ml 240 ml IV Total 525 ml 638.75 ml Output Urine Total 300 ml # Voids 5 Laboratory Tests Test 10/29/18 08:40 Sodium Level 139 MMOL/L (136-145) Potassium Level 3.8 MMOL/L (3.5-5.1) Chloride Level 108 MMOL/L (98-107) H Carbon Dioxide Level 24 MMOL/L (21-32) Anion Gap 7 mmol/L (5-15) Blood Urea Nitrogen 16 mg/dL (7-18) Creatinine 0.8 MG/DL (0.55-1.30) Estimat Glomerular Filtration Rate mL/min (>60) Glucose Level 290 MG/DL (74-106) H Uric Acid 2.6 MG/DL (2.6-7.2) Calcium Level 7.8 MG/DL (8.5-10.1) L Phosphorus Level 2.0 MG/DL (2.5-4.9) L Magnesium Level 1.7 MG/DL (1.8-2.4) L Total Bilirubin 0.3 MG/DL (0.2-1.0) Aspartate Amino Transf (AST/SGOT) 22 U/L (15-37) Alanine Aminotransferase (ALT/SGPT) 19 U/L (12-78) Alkaline Phosphatase 51 U/L (46-116) Total Protein 5.2 G/DL (6.4-8.2) L Albumin 1.8 G/DL (3.4-5.0) L Globulin 3.4 g/dL Albumin/Globulin Ratio 0.5 (1.0-2.7) L Height (Feet): 6 Height (Inches): 1.00 Weight (Pounds): 161 General Appearance: alert Cardiovascular: normal rate Respiratory/Chest: normal breath sounds, no respiratory distress Abdominal Exam: soft Zak Pink NP Oct 29, 2018 10:16
--- NOTE | 2018-10-29 11:54 | NUR ---
CASE MANAGEMENT: REVIEW 10/29/2018 SI:PNA. SEPSIS. T 98.4 HR 101 RR 18 B/P 90/59 SATS 90/59 SATS 97% ON RA CL 108 GLU 290 CA 7.8 PHOS 2 MG 1.7 IS: IVF @ 75 mL/HR MEROPENEM IV Q8H CARDIZEM PO Q8H FLOMAX PO QHS PROTONIX PO QD INSULIN ASPART SUBQ AC/HS TELE STATUS DCP: PATIENT TO BE DISCHARGED TO HOME ONCE MEDICALLY CLEARED. PLAN OF CARE: WOUND CARE NO PLANS FOR EGD
[2018-10-29 12:00] VITALS: BP 98/55
--- NOTE | 2018-10-29 12:02 | NUR ---
NURSE NOTES: Patient resting in bed. Patient refusing all care. Patient refused morning medications and 1130 blood glucose check. Patient was educated about the need for his medications and having blood glucose check. Patient continues to refuse care. Patient does not display any signs of distress or SOB. I will continue to monitor the patient and implement care.
--- NOTE | 2018-10-29 12:50 | Nephrology Progress Note ---
Assessment/Plan Problem List: (1) Sepsis (2) Tachycardia (3) Hypotension Assessment Hypotension UTI pneumonia, lactic acidosis, acute renal failure, diabetes mellitus with hyperglycemia, Alzheimer dementia. Plan todays lab pending K and Mag supply as needed Albumin bolus check renal parameters per orders midodrine for low bp antibiotics Subjective ROS Limited/Unobtainable: No Constitutional: Reports: malaise, weakness Objective Objective Last 24 Hour Vital Signs Date Time Temp Pulse Resp B/P (MAP) Pulse Ox O2 Delivery O2 Flow Rate FiO2 10/29/18 12:00 Room Air 10/29/18 12:00 98.0 93 20 98/55 (69) 93 10/29/18 12:00 91 10/29/18 11:21 Room Air 10/29/18 11:21 Room Air 10/29/18 08:00 98.4 101 18 90/59 (69) 97 10/29/18 08:00 98 10/29/18 08:00 Room Air 10/29/18 07:01 97 Room Air 10/29/18 07:01 Room Air 10/29/18 07:01 Room Air 10/29/18 05:07 106 124/59 10/29/18 04:00 97.9 106 17 124/59 (80) 100 10/29/18 04:00 Room Air 10/29/18 03:45 91 10/29/18 02:33 Room Air 10/29/18 02:33 Room Air 10/29/18 00:00 103 10/28/18 23:56 Room Air 10/28/18 23:53 97.7 106 18 108/66 (80) 96 10/28/18 22:28 Room Air 10/28/18 22:28 Room Air 10/28/18 21:15 104 100/63 10/28/18 20:00 97.9 104 20 100/63 (75) 96 10/28/18 20:00 Nasal Cannula 2.0 10/28/18 20:00 99 10/28/18 19:54 98 Room Air 10/28/18 19:54 100 20 98 Room Air 10/28/18 19:54 Room Air 10/28/18 16:00 Nasal Cannula 2.0 10/28/18 16:00 94 10/28/18 15:58 97.5 98 20 130/78 (95) 98 10/28/18 15:04 Room Air 21 10/28/18 15:04 Room Air 21 10/28/18 14:25 96 99/57 Intake and Output 10/28/18 10/29/18 19:00 07:00 Intake Total 1725 ml 878.75 ml Output Total 300 ml Balance 1725 ml 578.75 ml Intake Oral 1200 ml 240 ml IV Total 525 ml 638.75 ml Output Urine Total 300 ml # Voids 5 Laboratory Tests 10/29/18 08:40: Sodium Level 139, Potassium Level 3.8, Chloride Level 108H, Carbon Dioxide Level 24, Anion Gap 7, Blood Urea Nitrogen 16, Creatinine 0.8, Estimat Glomerular Filtration Rate , Glucose Level 290H, Uric Acid 2.6, Calcium Level 7.8L, Phosphorus Level 2.0L, Magnesium Level 1.7L, Total Bilirubin 0.3, Aspartate Amino Transf (AST/SGOT) 22, Alanine Aminotransferase (ALT/SGPT) 19, Alkaline Phosphatase 51, Total Protein 5.2L, Albumin 1.8L, Globulin 3.4, Albumin /Globulin Ratio 0.5L Height (Feet): 6 Height (Inches): 1.00 Weight (Pounds): 161 General Appearance: no apparent distress, lethargic Cardiovascular: tachycardia Respiratory/Chest: decreased breath sounds Abdomen: distended Objective no change Randal Matamoros MD Oct 29, 2018 12:50
--- NOTE | 2018-10-29 13:00 | NUR ---
NURSE NOTES: I talked to the patient about the meningitis vaccine. Patient said he would like the vaccine before he is discharged.
--- NOTE | 2018-10-29 13:10 | Infectious Diseases Prog Note ---
Assessment/Plan Assessment/Plan IMPRESSION: Sepsis improving UTI with Klebsiella ESBL pneumonia, HIV lactic acidosis, Acute renal failure improving, diabetes mellitus with hyperglycemia, Alzheimer dementia. RECOMMENDATION: continue Meropenem HIV treatment (Vanna) is not available in hospital Subjective ROS Limited/Unobtainable: No Constitutional: Reports: no symptoms Respiratory: Reports: no symptoms Gastrointestinal/Abdominal: Reports: no symptoms Genitourinary: Reports: no symptoms Allergies: Coded Allergies: CHEESE (Verified Allergy, Severe, 10/24/18) Objective Vital Signs Last 24 Hour Vital Signs Date Time Temp Pulse Resp B/P (MAP) Pulse Ox O2 Delivery O2 Flow Rate FiO2 10/29/18 12:00 Room Air 10/29/18 12:00 98.0 93 20 98/55 (69) 93 10/29/18 12:00 91 10/29/18 11:21 Room Air 10/29/18 11:21 Room Air 10/29/18 08:00 98.4 101 18 90/59 (69) 97 10/29/18 08:00 98 10/29/18 08:00 Room Air 10/29/18 07:01 97 Room Air 10/29/18 07:01 Room Air 10/29/18 07:01 Room Air 10/29/18 05:07 106 124/59 10/29/18 04:00 97.9 106 17 124/59 (80) 100 10/29/18 04:00 Room Air 10/29/18 03:45 91 10/29/18 02:33 Room Air 10/29/18 02:33 Room Air 10/29/18 00:00 103 10/28/18 23:56 Room Air 10/28/18 23:53 97.7 106 18 108/66 (80) 96 10/28/18 22:28 Room Air 10/28/18 22:28 Room Air 10/28/18 21:15 104 100/63 10/28/18 20:00 97.9 104 20 100/63 (75) 96 10/28/18 20:00 Nasal Cannula 2.0 10/28/18 20:00 99 10/28/18 19:54 98 Room Air 10/28/18 19:54 100 20 98 Room Air 10/28/18 19:54 Room Air 10/28/18 16:00 Nasal Cannula 2.0 10/28/18 16:00 94 10/28/18 15:58 97.5 98 20 130/78 (95) 98 10/28/18 15:04 Room Air 21 10/28/18 15:04 Room Air 21 10/28/18 14:25 96 99/57 Height (Feet): 6 Height (Inches): 1.00 Weight (Pounds): 161 General Appearance: no acute distress HEENT: mucous membranes moist Respiratory/Chest: lungs clear Cardiovascular: normal rate Abdomen: soft, non tender Extremities: no edema Neurologic/Psychiatric: alert, responsive Musculoskeletal: atrophy Microbiology Date/Time Source Procedure Growth Status 10/26/18 14:00 Sputum Expectorated Gram Stain - Final Resulted 10/26/18 14:00 Sputum Culture - Preliminary Staphylococcus Aureus Resulted Laboratory Tests Test 10/29/18 08:40 Sodium Level 139 MMOL/L (136-145) Potassium Level 3.8 MMOL/L (3.5-5.1) Chloride Level 108 MMOL/L (98-107) H Carbon Dioxide Level 24 MMOL/L (21-32) Anion Gap 7 mmol/L (5-15) Blood Urea Nitrogen 16 mg/dL (7-18) Creatinine 0.8 MG/DL (0.55-1.30) Estimat Glomerular Filtration Rate mL/min (>60) Glucose Level 290 MG/DL (74-106) H Uric Acid 2.6 MG/DL (2.6-7.2) Calcium Level 7.8 MG/DL (8.5-10.1) L Phosphorus Level 2.0 MG/DL (2.5-4.9) L Magnesium Level 1.7 MG/DL (1.8-2.4) L Total Bilirubin 0.3 MG/DL (0.2-1.0) Aspartate Amino Transf (AST/SGOT) 22 U/L (15-37) Alanine Aminotransferase (ALT/SGPT) 19 U/L (12-78) Alkaline Phosphatase 51 U/L (46-116) Total Protein 5.2 G/DL (6.4-8.2) L Albumin 1.8 G/DL (3.4-5.0) L Globulin 3.4 g/dL Albumin/Globulin Ratio 0.5 (1.0-2.7) L Current Medications Medications (Trade) Dose Ordered Sig/Itzel Route PRN Reason Start Time Stop Time Status Last Admin Dose Admin Acetaminophen (Tylenol) 650 mg Q4H PRN ORAL Mild Pain/Temp > 100.5 10/28/18 23:45 11/23/18 19:44 10/29/18 02:19 Dextrose (Dextrose 50%) 25 ml Q30M PRN IV Hypoglycemia 10/28/18 23:15 11/23/18 14:44 Dextrose (Dextrose 50%) 50 ml Q30M PRN IV Hypoglycemia 10/28/18 23:15 11/23/18 14:44 Diltiazem HCl (Cardizem) 10 mg Q4H PRN IVP For HR > 120 10/29/18 02:00 11/24/18 21:47 Diltiazem HCl (Cardizem) 90 mg EVERY 8 HOURS ORAL 10/29/18 06:00 11/25/18 13:59 10/29/18 05:07 Docusate Sodium (Colace) 100 mg THREE TIMES A DAY ORAL 10/29/18 09:00 11/23/18 17:59 Folic Acid (Folate) 3 mg DAILY ORAL 10/29/18 09:00 11/25/18 09:29 Heparin Sodium (Porcine) (Heparin 5000 units/ml) 5,000 units EVERY 12 HOURS SUBQ 10/29/18 09:00 11/23/18 20:59 Insulin Aspart (NovoLOG) BEFORE MEALS AND HS SUBQ 10/29/18 06:30 11/23/18 16:29 10/29/18 06:09 Ipratropium [place] (Atrovent) 500 mcg Q4HRT HHN 10/28/18 23:00 10/30/18 18:59 Meropenem 500 mg/ Sodium Chloride 55 ml @ 110 mls/hr EVERY 8 HOURS IVPB 10/29/18 06:00 11/01/18 13:59 10/29/18 05:07 Multivitamins (Multivitamins) 1 tab DAILY ORAL 10/29/18 09:00 11/24/18 08:59 Ondansetron HCl (Zofran) 4 mg Q6H PRN IVP Nausea & Vomiting 10/29/18 02:30 11/23/18 14:29 Pantoprazole (Protonix) 40 mg DAILY ORAL 10/29/18 09:00 11/24/18 08:59 Patient Own Medication (Patient's Own Med) 1 ea DAILY ORAL 10/29/18 09:00 11/24/18 08:59 UNV Polyethylene Glycol (Miralax) 17 gm BEDTIME ORAL 10/29/18 21:00 11/23/18 20:59 Sennosides (Senokot) 8.6 mg DAILYPRN PRN ORAL Constipation 10/29/18 14:30 11/23/18 14:29 Sodium Hypochlorite (Dakin's Full Strength) 1 applic BEDTIME TOPIC 10/29/18 21:00 11/23/18 20:59 Sodium Chloride 1,000 ml @ 75 mls/hr [id number] IV 10/28/18 22:45 11/23/18 14:44 10/29/18 12:16 Tamsulosin HCl (Flomax) 0.4 mg BEDTIME ORAL 10/29/18 21:00 11/23/18 20:59 Rigo Ames MD Oct 29, 2018 13:10
[2018-10-29 14:03] VITALS: BP 94/63
--- NOTE | 2018-10-29 14:11 | Pulmonology Progress Note ---
Assessment/Plan Assessment/Plan Pulmonary Progress Noted HPI Patient is a 77 year old man with history of HIV, Dementia, Diabetes, CAD who presents from a correction facility after a reported episode of emesis. Noted to have sinus tachycardia and evidence of pneumonia in the ED. The patient himself has no specific complaints. He denies pain. He denies cough or congestion. He denies shortness of breath. He has no specific complaints. Feels improved. Multiple decubitus ulcers ESBL Klebsiella UTI Allergies: No Known Allergies Past Medical History: DM, CAD, dementia, HIV All Other Systems: negative except mentioned in HPI Physical Exam Vital Signs Noted General Appearance: no apparent distress, alert, GCS 15, non-toxic, chronically ill appearing Head: normocephalic, atraumatic Eyes: bilateral eye normal inspection, bilateral eye PERRL ENT: hearing grossly normal, normal pharynx, no angioedema, normal voice Neck: normal inspection, full range of motion Respiratory: chest non-tender, lungs clear, normal breath sounds, no respiratory distress, no retraction, no accessory muscle use, speaking full sentences Cardiovascular: no edema, tachycardia, HS normal Gastrointestinal: normal bowel sounds, non tender, soft, non-distended, no guarding, no rebound Rectal: deferred Musculoskeletal: normal inspection, normal range of motion, non-tender Neurologic: alert, responsive, motor strength/tone normal, speech normal Impression: Pneumonia Decubitus ulcers Sepsis HIV Dementia Diabetes - glucose 342 CAD Plan IV Antibiotics per ID IVF PRN ST eval swallow Protonix PPX HHN O2 PRN Labs noted EKG: Rate: tachycardiac - S.tachycardia ST Segments: no acute changes Chest X-Ray: no pneumothorax, other - LLL opacity Subjective ROS Limited/Unobtainable: No Allergies: Coded Allergies: CHEESE (Verified Allergy, Severe, 10/24/18) Objective Last 24 Hour Vital Signs Date Time Temp Pulse Resp B/P (MAP) Pulse Ox O2 Delivery O2 Flow Rate FiO2 10/29/18 14:03 102 94/63 (73) 10/29/18 12:00 Room Air 10/29/18 12:00 98.0 93 20 98/55 (69) 93 10/29/18 12:00 91 10/29/18 11:21 Room Air 21 10/29/18 11:21 Room Air 21 10/29/18 08:00 98.4 101 18 90/59 (69) 97 10/29/18 08:00 98 10/29/18 08:00 Room Air 10/29/18 07:01 97 Room Air 10/29/18 07:01 Room Air 10/29/18 07:01 Room Air 10/29/18 05:07 106 124/59 10/29/18 04:00 97.9 106 17 124/59 (80) 100 10/29/18 04:00 Room Air 10/29/18 03:45 91 10/29/18 02:33 Room Air 10/29/18 02:33 Room Air 10/29/18 00:00 103 10/28/18 23:56 Room Air 10/28/18 23:53 97.7 106 18 108/66 (80) 96 10/28/18 22:28 Room Air 10/28/18 22:28 Room Air 10/28/18 21:15 104 100/63 10/28/18 20:00 97.9 104 20 100/63 (75) 96 10/28/18 20:00 Nasal Cannula 2.0 10/28/18 20:00 99 10/28/18 19:54 98 Room Air 10/28/18 19:54 100 20 98 Room Air 10/28/18 19:54 Room Air 10/28/18 16:00 Nasal Cannula 2.0 10/28/18 16:00 94 10/28/18 15:58 97.5 98 20 130/78 (95) 98 10/28/18 15:04 Room Air 10/28/18 15:04 Room Air 10/28/18 14:25 96 99/57 Intake and Output 10/28/18 10/29/18 19:00 07:00 Intake Total 1725 ml 878.75 ml Output Total 300 ml Balance 1725 ml 578.75 ml Intake Oral 1200 ml 240 ml IV Total 525 ml 638.75 ml Output Urine Total 300 ml # Voids 5 Laboratory Tests 10/29/18 08:40: Sodium Level 139, Potassium Level 3.8, Chloride Level 108H, Carbon Dioxide Level 24, Anion Gap 7, Blood Urea Nitrogen 16, Creatinine 0.8, Estimat Glomerular Filtration Rate , Glucose Level 290H, Uric Acid 2.6, Calcium Level 7.8L, Phosphorus Level 2.0L, Magnesium Level 1.7L, Total Bilirubin 0.3, Aspartate Amino Transf (AST/SGOT) 22, Alanine Aminotransferase (ALT/SGPT) 19, Alkaline Phosphatase 51, Total Protein 5.2L, Albumin 1.8L, Globulin 3.4, Albumin /Globulin Ratio 0.5L Current Medications Medications (Trade) Dose Ordered Sig/Itzel Route PRN Reason Start Time Stop Time Status Last Admin Dose Admin Acetaminophen (Tylenol) 650 mg Q4H PRN ORAL Mild Pain/Temp > 100.5 10/28/18 23:45 11/23/18 19:44 10/29/18 02:19 Dextrose (Dextrose 50%) 25 ml Q30M PRN IV Hypoglycemia 10/28/18 23:15 11/23/18 14:44 Dextrose (Dextrose 50%) 50 ml Q30M PRN IV Hypoglycemia 10/28/18 23:15 11/23/18 14:44 Diltiazem HCl (Cardizem) 10 mg Q4H PRN IVP For HR > 120 10/29/18 02:00 11/24/18 21:47 Diltiazem HCl (Cardizem) 90 mg EVERY 8 HOURS ORAL 10/29/18 06:00 11/25/18 13:59 10/29/18 05:07 Docusate Sodium (Colace) 100 mg THREE TIMES A DAY ORAL 10/29/18 09:00 11/23/18 17:59 Folic Acid (Folate) 3 mg DAILY ORAL 10/29/18 09:00 11/25/18 09:29 Heparin Sodium (Porcine) (Heparin 5000 units/ml) 5,000 units EVERY 12 HOURS SUBQ 10/29/18 09:00 11/23/18 20:59 Insulin Aspart (NovoLOG) BEFORE MEALS AND HS SUBQ 10/29/18 06:30 11/23/18 16:29 10/29/18 06:09 Ipratropium Supply (Atrovent) 500 mcg Q4HRT HHN 10/28/18 23:00 10/30/18 18:59 Meropenem 500 mg/ Sodium Chloride 55 ml @ 110 mls/hr EVERY 8 HOURS IVPB 10/29/18 06:00 11/01/18 13:59 10/29/18 13:47 Multivitamins (Multivitamins) 1 tab DAILY ORAL 10/29/18 09:00 11/24/18 08:59 Ondansetron HCl (Zofran) 4 mg Q6H PRN IVP Nausea & Vomiting 10/29/18 02:30 11/23/18 14:29 Pantoprazole (Protonix) 40 mg DAILY ORAL 10/29/18 09:00 11/24/18 08:59 Patient Own Medication (Patient's Own Med) 1 ea DAILY ORAL 10/29/18 09:00 11/24/18 08:59 UNV Polyethylene Glycol (Miralax) 17 gm BEDTIME ORAL 10/29/18 21:00 11/23/18 20:59 Sennosides (Senokot) 8.6 mg DAILYPRN PRN ORAL Constipation 10/29/18 14:30 11/23/18 14:29 Sodium Hypochlorite (Dakin's Full Strength) 1 applic BEDTIME TOPIC 10/29/18 21:00 11/23/18 20:59 Sodium Chloride 1,000 ml @ 75 mls/hr [id number] IV 10/28/18 22:45 11/23/18 14:44 10/29/18 12:16 Tamsulosin HCl (Flomax) 0.4 mg BEDTIME ORAL 10/29/18 21:00 11/23/18 20:59 Rasta Candelario MD Oct 29, 2018 14:11
--- NOTE | 2018-10-29 14:16 | NUR ---
NURSE NOTES: Patient refusing to be cleaned and repositioned. Patient resting in bed. Patient non-compliant and says he wants to be left alone. Bed in the lowest position and call light within reach.
--- NOTE | 2018-10-29 14:17 | Surgery Progress Note ---
Surgery Progress Note Subjective Additional Comments overall all improving no acute events comfortable. Objective Last 24 Hour Vital Signs Date Time Temp Pulse Resp B/P (MAP) Pulse Ox O2 Delivery O2 Flow Rate FiO2 10/29/18 14:03 102 94/63 (73) 10/29/18 12:00 Room Air 10/29/18 12:00 98.0 93 20 98/55 (69) 93 10/29/18 12:00 91 10/29/18 11:21 Room Air 10/29/18 11:21 Room Air 10/29/18 08:00 98.4 101 18 90/59 (69) 97 10/29/18 08:00 98 10/29/18 08:00 Room Air 10/29/18 07:01 97 Room Air 10/29/18 07:01 Room Air 10/29/18 07:01 Room Air 10/29/18 05:07 106 124/59 10/29/18 04:00 97.9 106 17 124/59 (80) 100 10/29/18 04:00 Room Air 10/29/18 03:45 91 10/29/18 02:33 Room Air 10/29/18 02:33 Room Air 10/29/18 00:00 103 10/28/18 23:56 Room Air 10/28/18 23:53 97.7 106 18 108/66 (80) 96 10/28/18 22:28 Room Air 10/28/18 22:28 Room Air 10/28/18 21:15 104 100/63 10/28/18 20:00 97.9 104 20 100/63 (75) 96 10/28/18 20:00 Nasal Cannula 2.0 10/28/18 20:00 99 10/28/18 19:54 98 Room Air 10/28/18 19:54 100 20 98 Room Air 10/28/18 19:54 Room Air 10/28/18 16:00 Nasal Cannula 2.0 10/28/18 16:00 94 10/28/18 15:58 97.5 98 20 130/78 (95) 98 10/28/18 15:04 Room Air 10/28/18 15:04 Room Air 10/28/18 14:25 96 99/57 I&O Intake and Output 10/28/18 10/29/18 19:00 07:00 Intake Total 1725 ml 878.75 ml Output Total 300 ml Balance 1725 ml 578.75 ml Intake Oral 1200 ml 240 ml IV Total 525 ml 638.75 ml Output Urine Total 300 ml # Voids 5 Dressing: saturated Wound: other Drains: other Cardiovascular: RSR Respiratory: clear Abdomen: soft, present bowel sounds, non-distended Extremities: no cyanosis, other Laboratory Tests Test 10/29/18 08:40 Sodium Level 139 MMOL/L (136-145) Potassium Level 3.8 MMOL/L (3.5-5.1) Chloride Level 108 MMOL/L (98-107) H Carbon Dioxide Level 24 MMOL/L (21-32) Anion Gap 7 mmol/L (5-15) Blood Urea Nitrogen 16 mg/dL (7-18) Creatinine 0.8 MG/DL (0.55-1.30) Estimat Glomerular Filtration Rate mL/min (>60) Glucose Level 290 MG/DL (74-106) H Uric Acid 2.6 MG/DL (2.6-7.2) Calcium Level 7.8 MG/DL (8.5-10.1) L Phosphorus Level 2.0 MG/DL (2.5-4.9) L Magnesium Level 1.7 MG/DL (1.8-2.4) L Total Bilirubin 0.3 MG/DL (0.2-1.0) Aspartate Amino Transf (AST/SGOT) 22 U/L (15-37) Alanine Aminotransferase (ALT/SGPT) 19 U/L (12-78) Alkaline Phosphatase 51 U/L (46-116) Total Protein 5.2 G/DL (6.4-8.2) L Albumin 1.8 G/DL (3.4-5.0) L Globulin 3.4 g/dL Albumin/Globulin Ratio 0.5 (1.0-2.7) L Plan Problems: (1) GI bleed (2) Coffee ground emesis (3) Fever (4) Pneumonia (5) BPH (benign prostatic hyperplasia) (6) Tachycardia (7) Sepsis Assessment & Plan: tachycardic leukocytosis improving pna iv Abx trend labs will follow nutritional optimization DAILY ESTIMATED NEEDS: Needs based on Wound, HIV, Underweight, sepsis/ 60kg 30-35 kcals/kg 2966-3327 total kcals 1.25-2.0 g protein/kg 75-120 g total protein 25-30 mL/kg 0445-1279 total fluid mLs NUTRITION DIAGNOSIS: Increased kcal/prot intake needs R/T wound healing, sepsis, underweight status as evidenced by admitted w/ right hip stage 3 healing decubitus ulcer and left hip large unstageable decubitus ulcer identified with black eschar, multiple 1-2 cm stage 3 decubitus ulcers in the sacral and lower back area, admitted w/ elev LA-> now wnl, elev wbc (13.6), low BMI per guidelines, noted w/ severe BLE wasting. CURRENT DIET:CCHO MED/ pureed moist PO DIET RECOMMENDATIONS: Maintain CCHO MED/ texture per CUSTOMER CONTACT REPRESENTATIVE + Glucerna 1 tetra harshil TID ADDITIONAL RECOMMENDATIONS: * Re-calibrated bedscale wt for accurate CBW (w/ added P200 mattress) -> weekly wts * Wound healing: add Vit C 500mg BID, Reddy 1pkt BID : add ZnSO4 220mg QD x 10 days * Glucerna TID (pt reuqesting chocolate flavor) * Monitor lytes, replete as needed (low phos) * Monitor PO intake closely (8) Decubitus skin ulcer Assessment & Plan: Pt presented on admission with multiple pressure injuries. Staff on unit reports pt resistive to wound care and to being repositioned. Initially pt was resistive and attempted to hit staff but with encouragement pt apologized and consented to have staff evaluate wounds. Maroon area without induration or fluctuance noted to L thoracic area.(L)2cm x ( W)1cm. #2 areas of Unstageable pressure injuries noted to lumbar spine(proximal wound) (L)1cm x (W)0.9cm.100% yellow slough with marginal erythema noted.(inferior wound)(L)1cm x (W)1cm.Base of wound has 100% slough with marginal erythema.Periwound skin is pink. Unstageable pressure injury noted to L but in close proximity lumbar spine. Base of wound has 100% slough with marginal erythema.(L)0.4cm x (W)0.3cm. Non- blanchable erythema without induration periwound. Unstageable pressure injury sacrum.Base of wound has 100% slough with marginal erythema.(L)0.8cm x (W)0.9cm. Non-blanchable erythema without induration periwound. Partial thickness pressure injury noted to R trochanter. Base of wound moist - viable.(L)1.5cm x (W)0.5cm. Borders and periwound dark brown with dry peeling skin. Unstageable pressure injury with necrosis centrally with surrounding erythematous base. (+) maceration along edges.Periwound with dry ,brown peeling skin .No induration or erythema periwound. No odor noted.(L)9 cm x (W)7.5cm. Non-blanchable erythema without induration or fluctuance noted to L lateral malleolus. Pt educated on wound prevention. Pt educated of risks vs benefits on compliance with wound care and to being repositioned. Pt stated he was unaware of stages of wounds and expressed appreciation for wound care but still became agitated while being repositioned. Tx.Plan: Cleanse L trochanteric wound with Saline. Apply Therahoney. Apply Moisture Barrier to borders and periwound. Cover with Optifoam drsg Daily and prn. Cleanse wounds lumbar spine and sacral area with Saline. Apply Therahoney to each wound . Apply Cavilon Skin Barrier to borders of each wound. Cover wounds with Optifoam drsg. Change every 3 days and prn. Apply Cavilon Skin Barrier to L thoracic.Cover with Optifoam drsg. Change every 7 days and prn. Apply Cavilon Skin Barrier to both heels. Cover each heel with Optifoam drsg. Change every 7 days and prn. Apply Cavilon Skin Barrier to L lateral malleolus. Cover with Optifoam drsg. Change every 7 days and prn. Reposition at least every 2hours or as tolerated. Off-load heels with pillow. APM/MACKENZIE mattress overlay. (9) Hypotension (10) Pyelonephritis (11) Afib (12) HIV (human immunodeficiency virus infection) Michael Clay Oct 29, 2018 14:16
--- NOTE | 2018-10-29 14:17 | NUR ---
NURSE NOTES: Dr. Abdullahi notified about patient's BP and HR. I will await any new orders. Patient resting in bed and does not display any signs of distress and SOB.
[2018-10-29] MEDS ORDERED: Hydrocortisone 1% Cr 15gm TOPIC PRN (14:30)
[2018-10-29] MEDS ORDERED: Sennosides 8.6mg tab ORAL PRN (14:30)
--- NOTE | 2018-10-29 15:32 | NUR ---
RD ASSESSMENT & RECOMMENDATIONS SEE CARE ACTIVITY FOR COMPLETE ASSESSMENT DAILY ESTIMATED NEEDS: Needs based on Wound, HIV, Underweight, sepsis/ 60kg 30-35 kcals/kg 2196-7482 total kcals 1.25-2.0 g protein/kg 75-120 g total protein 25-30 mL/kg 1168-3231 total fluid mLs NUTRITION DIAGNOSIS: Increased kcal/prot intake needs R/T wound healing, sepsis, underweight status as evidenced by admitted w/ right hip stage 3 healing decubitus ulcer and left hip large unstageable decubitus ulcer identified with black eschar, multiple 1-2 cm stage 3 decubitus ulcers in the sacral and lower back area, admitted w/ elev LA-> now wnl, elev wbc (13.6), low BMI per guidelines, noted w/ severe BLE wasting. CURRENT DIET:CCHO MED, mech soft finely chopped, NTL + Glucerna TID PO DIET RECOMMENDATIONS: Maintain CCHO MED/ texture per SENIOR MORTGAGE UNDERWRITER + Glucerna 1 tetra harshil TID ADDITIONAL RECOMMENDATIONS: * Re-calibrated bedscale wt for accurate CBW (w/ added P200 mattress) -> weekly wts * Wound healing: add Vit C 500mg BID, Reddy 1pkt BID : add ZnSO4 220mg QD x 10 days * Glucerna TID (pt requesting chocolate flavor) * Monitor lytes, replete as needed (phos low) * Monitor PO intake closely- poor at this time, consider appetite stimulant
[2018-10-29 16:00] VITALS: BP 92/60
--- NOTE | 2018-10-29 17:51 | Cardiac Electrophysiology PN ---
Assessment/Plan Assessment/Plan 1. Atrial fibrillation with rapid ventricular response. In SR on Cardizem 90 mg every 6 hours p.o and Cardizem 10 mg IV p.r.n. But has been off and on refusing Cardizem Ruled out DE protocol. EF of 55%. On Heparin 5000 sq bid May need a G-tube placement. 2. Coffee-ground emesis and GI bleed. No recurrent vomiting, but has poor oral intake. Resumed PPI. HB stable. No plans for EGD or colonoscopy by Dr. Mendoza. 3. UTI and sepsis. On IV antibiotic per Dr. Rigo Ames. 4. HIV. 5. Pneumonia. 6. Diabetes. 7. Alzheimer dementia. DW RN Subjective Subjective No CP or SOB. Refusing meds and X ray. In SR Objective Last 24 Hour Vital Signs Date Time Temp Pulse Resp B/P (MAP) Pulse Ox O2 Delivery O2 Flow Rate FiO2 10/29/18 16:00 Room Air 10/29/18 16:00 97 10/29/18 16:00 97.7 102 18 92/60 (71) 97 10/29/18 15:14 Room Air 10/29/18 15:14 Room Air 10/29/18 14:03 102 94/63 (73) 10/29/18 12:00 Room Air 10/29/18 12:00 98.0 93 20 98/55 (69) 93 10/29/18 12:00 91 10/29/18 11:21 Room Air 10/29/18 11:21 Room Air 10/29/18 08:00 98.4 101 18 90/59 (69) 97 10/29/18 08:00 98 10/29/18 08:00 Room Air 10/29/18 07:01 97 Room Air 10/29/18 07:01 Room Air 10/29/18 07:01 Room Air 10/29/18 05:07 106 124/59 10/29/18 04:00 97.9 106 17 124/59 (80) 100 10/29/18 04:00 Room Air 10/29/18 03:45 91 10/29/18 02:33 Room Air 10/29/18 02:33 Room Air 10/29/18 00:00 103 10/28/18 23:56 Room Air 10/28/18 23:53 97.7 106 18 108/66 (80) 96 10/28/18 22:28 Room Air 21 10/28/18 22:28 Room Air 21 10/28/18 21:15 104 100/63 10/28/18 20:00 97.9 104 20 100/63 (75) 96 10/28/18 20:00 Nasal Cannula 2.0 10/28/18 20:00 99 10/28/18 19:54 98 Room Air 21 10/28/18 19:54 100 20 98 Room Air 21 10/28/18 19:54 Room Air 21 Intake and Output 10/28/18 10/29/18 18:59 06:59 Intake Total 1725 ml 803.75 ml Output Total 300 ml Balance 1725 ml 503.75 ml Intake Oral 1200 ml 240 ml IV Total 525 ml 563.75 ml Output Urine Total 300 ml # Voids 5 Laboratory Tests Test 10/29/18 08:40 Sodium Level 139 MMOL/L (136-145) Potassium Level 3.8 MMOL/L (3.5-5.1) Chloride Level 108 MMOL/L (98-107) H Carbon Dioxide Level 24 MMOL/L (21-32) Anion Gap 7 mmol/L (5-15) Blood Urea Nitrogen 16 mg/dL (7-18) Creatinine 0.8 MG/DL (0.55-1.30) Estimat Glomerular Filtration Rate mL/min (>60) Glucose Level 290 MG/DL (74-106) H Uric Acid 2.6 MG/DL (2.6-7.2) Calcium Level 7.8 MG/DL (8.5-10.1) L Phosphorus Level 2.0 MG/DL (2.5-4.9) L Magnesium Level 1.7 MG/DL (1.8-2.4) L Total Bilirubin 0.3 MG/DL (0.2-1.0) Aspartate Amino Transf (AST/SGOT) 22 U/L (15-37) Alanine Aminotransferase (ALT/SGPT) 19 U/L (12-78) Alkaline Phosphatase 51 U/L (46-116) Total Protein 5.2 G/DL (6.4-8.2) L Albumin 1.8 G/DL (3.4-5.0) L Globulin 3.4 g/dL Albumin/Globulin Ratio 0.5 (1.0-2.7) L Objective HEAD AND NECK: No JVD. LUNGS: Coarse rhonchi. CARDIOVASCULAR: Irregularly irregular, S1 and S2 with no gallop or murmur. ABDOMEN: Soft. EXTREMITIES: Lower extremities are contracted with no edema. Uri Abdullahi MD Oct 29, 2018 17:51
--- NOTE | 2018-10-29 18:00 | NUR ---
NURSE NOTES: Patient resting in bed. Family at the patient's bedside and the patient is eating dinner. Patient more awake and mood is pleasant. Bed in the lowest position and call light within reach.
--- NOTE | 2018-10-29 19:21 | NUR ---
HAND-OFF: Report given to Aditi Chaney RN.
--- NOTE | 2018-10-29 19:25 | NUR ---
NURSE NOTES: Received report from Aditi Guidry RN. patient in bed AAO X3 with no complaints of acute pain or discomfort noted at this time. Placed on 2L NC, tolerating well with no S/S of SOB or resp. distress, 02 sat at 94-96%. Currently on continuous cardiac monitoring per protocol. IV line intact and patent with prescribed fluids running as ordered. Skin alteration noted and WC tx and plan ongoing. Safety precaution in place; siderails X3 up, call ligth within reach, bed in lowest position, brakes and alarm on at all times. Needs and wants anticipated and attended, will continue plan of care and monitor for any changes noted.
[2018-10-29 20:00] VITALS: BP 103/64
[2018-10-29] MEDS ORDERED: NS 275ml ONE (20:57)
--- NOTE | 2018-10-29 20:57 | General Progress Note ---
Assessment/Plan Problem List: (1) Sepsis ICD Codes: A41.9 - Sepsis, unspecified organism SNOMED: 21644498 (2) Tachycardia ICD Codes: R00.0 - Tachycardia, unspecified SNOMED: 6308134 (3) GI bleed ICD Codes: K92.2 - Gastrointestinal hemorrhage, unspecified SNOMED: 16950945 (4) Coffee ground emesis ICD Codes: K92.0 - Hematemesis SNOMED: 14235878 (5) Fever ICD Codes: R50.9 - Fever, unspecified SNOMED: 338437889 (6) Pneumonia ICD Codes: J18.9 - Pneumonia, unspecified organism SNOMED: 267676595 (7) BPH (benign prostatic hyperplasia) ICD Codes: N40.0 - Benign prostatic hyperplasia without lower urinary tract symptoms SNOMED: 184052158 Status: stable, unchanged Assessment/Plan: malnutrition reviewed chart and labs and meds gi bleed aids cachexia multiple wounds check the labs poor prognosis Subjective ROS Limited/Unobtainable: Yes Allergies: Coded Allergies: CHEESE (Verified Allergy, Severe, 10/24/18) Objective Last 24 Hour Vital Signs Date Time Temp Pulse Resp B/P (MAP) Pulse Ox O2 Delivery O2 Flow Rate FiO2 10/29/18 19:45 100 18 96 Room Air 10/29/18 19:44 96 Room Air 10/29/18 19:44 96 18 100 Room Air 10/29/18 16:00 Room Air 10/29/18 16:00 97 10/29/18 16:00 97.7 102 18 92/60 (71) 97 10/29/18 15:14 Room Air 10/29/18 15:14 Room Air 10/29/18 14:03 102 94/63 (73) 10/29/18 12:00 Room Air 10/29/18 12:00 98.0 93 20 98/55 (69) 93 10/29/18 12:00 91 10/29/18 11:21 Room Air 10/29/18 11:21 Room Air 10/29/18 08:00 98.4 101 18 90/59 (69) 97 10/29/18 08:00 98 10/29/18 08:00 Room Air 10/29/18 07:01 97 Room Air 10/29/18 07:01 Room Air 10/29/18 07:01 Room Air 21 10/29/18 05:07 106 124/59 10/29/18 04:00 97.9 106 17 124/59 (80) 100 10/29/18 04:00 Room Air 10/29/18 03:45 91 10/29/18 02:33 Room Air 10/29/18 02:33 Room Air 10/29/18 00:00 103 10/28/18 23:56 Room Air 10/28/18 23:53 97.7 106 18 108/66 (80) 96 10/28/18 22:28 Room Air 21 10/28/18 22:28 Room Air 21 10/28/18 21:15 104 100/63 Intake and Output 10/28/18 10/29/18 18:59 06:59 Intake Total 1725 ml 803.75 ml Output Total 300 ml Balance 1725 ml 503.75 ml Intake Oral 1200 ml 240 ml IV Total 525 ml 563.75 ml Output Urine Total 300 ml # Voids 5 Laboratory Tests 10/29/18 08:40: Sodium Level 139, Potassium Level 3.8, Chloride Level 108H, Carbon Dioxide Level 24, Anion Gap 7, Blood Urea Nitrogen 16, Creatinine 0.8, Estimat Glomerular Filtration Rate , Glucose Level 290H, Uric Acid 2.6, Calcium Level 7.8L, Phosphorus Level 2.0L, Magnesium Level 1.7L, Total Bilirubin 0.3, Aspartate Amino Transf (AST/SGOT) 22, Alanine Aminotransferase (ALT/SGPT) 19, Alkaline Phosphatase 51, Total Protein 5.2L, Albumin 1.8L, Globulin 3.4, Albumin /Globulin Ratio 0.5L Height (Feet): 6 Height (Inches): 1.00 Weight (Pounds): 161 Cardiovascular: normal rate Respiratory/Chest: lungs clear Abdomen: soft Suresh Lindquist MD Oct 29, 2018 20:57
[2018-10-29] MEDS ORDERED: Tamsulosin 0.4mg cap ORAL SCH (21:00)
[2018-10-29] MEDS ORDERED: Miralax 17gm pkt ORAL SCH (21:00)
[2018-10-29] MEDS ORDERED: Dakin's 0.5% (Full Strength) 16oz TOPIC SCH (21:00)
[2018-10-30] VITALS: BP 103/62
--- NOTE | 2018-10-30 02:37 | NUR ---
NURSE NOTES: Patient in bed asleep with no S/S of distress noted at this time. Will continue to monitor.
[2018-10-30] MEDS: Ipratropium 0.02% Inh Soln 2.5ml UD HHN SCH ×4 (03:00→14:43)
[2018-10-30 04:00] VITALS: BP 105/70
[2018-10-30] MEDS: dilTIAZem HCl 90mg tab ORAL SCH ×2 (05:19→14:00)
[2018-10-30] MEDS: Meropenem 500 MG in NS 55 ML IVPB SCH ×2 (05:20→13:39)
--- NOTE | 2018-10-30 06:00 | NUR ---
NURSE NOTES: Patient refuses to be changed in bed and checked for wound DSG change. Explained risks and benefits but still refused. Will continue to monitor.
[2018-10-30] MEDS: NovoLOG Insulin Flexpen SUBQ SCH ×3 (06:15→16:30)
--- NOTE | 2018-10-30 07:28 | NUR ---
HAND-OFF: Report given to Remy Ayers RN. Patient in stable in condition, endorsed plan of care.
--- NOTE | 2018-10-30 07:29 | NUR ---
NURSE NOTES: Received report from ANDREA Johnson. patient is resting in bed in stable condition. AO X3 with no complaints of acute pain or discomfort noted at this time. Breathing unlabored in room air, patient has 2 Liter Nasal cannula PRN. IV line intact and running at RX dose. Safety precaution in place; side rails up x2. Call Light and bed side table within reach, bed in lowest position, brakes and alarm on at all times. Will continue plan of care.
[2018-10-30 08:00] VITALS: BP 106/59
--- NOTE | 2018-10-30 08:15 | NUR ---
NURSE NOTES: Patient refused morning labs.
--- NOTE | 2018-10-30 08:38 | Pulmonology Progress Note ---
Assessment/Plan Assessment/Plan Impression: Pneumonia Decubitus ulcers Sepsis HIV Dementia Diabetes CAD Plan IV Antibiotics reviewed speech follow up Protonix oxygen respiratory care monitor imaging follow up exam monitor for aspiration impression, plan, and exam edited and reviewed in detail care discussed with RN Subjective Allergies: Coded Allergies: CHEESE (Verified Allergy, Severe, 10/24/18) Subjective care noted and reviewed coverage for Dr. Candelario Objective Last 24 Hour Vital Signs Date Time Temp Pulse Resp B/P (MAP) Pulse Ox O2 Delivery O2 Flow Rate FiO2 10/30/18 07:22 Room Air 10/30/18 07:22 Room Air 10/30/18 07:21 Room Air 10/30/18 05:19 90 105/70 10/30/18 04:00 98.0 90 18 105/70 (82) 95 10/30/18 04:00 92 10/30/18 04:00 Room Air 10/30/18 03:02 Room Air 10/30/18 03:02 Room Air 10/30/18 00:00 98.6 100 19 103/62 (76) 96 10/30/18 00:00 97 10/30/18 00:00 Room Air 10/29/18 23:00 Room Air 10/29/18 23:00 Room Air 10/29/18 21:56 102 111/70 10/29/18 20:00 98.5 104 19 103/64 (77) 96 10/29/18 20:00 Room Air 10/29/18 20:00 101 10/29/18 19:45 100 18 96 Room Air 10/29/18 19:44 96 Room Air 10/29/18 19:44 96 18 100 Room Air 10/29/18 16:00 Room Air 10/29/18 16:00 97 10/29/18 16:00 97.7 102 18 92/60 (71) 97 10/29/18 15:14 Room Air 10/29/18 15:14 Room Air 10/29/18 14:03 102 94/63 (73) 10/29/18 12:00 Room Air 10/29/18 12:00 98.0 93 20 98/55 (69) 93 10/29/18 12:00 91 10/29/18 11:21 Room Air 10/29/18 11:21 Room Air 21 Intake and Output 10/29/18 10/30/18 19:00 07:00 Intake Total 655 ml 315 ml Output Total 1000 ml 1000 ml Balance -345 ml -685 ml Intake Oral 240 ml IV Total 655 ml 75 ml Output Urine Total 1000 ml 1000 ml Objective WDWN NAD on oxygen reduced breath sounds bilaterally without rhonchi or wheeze [id number] without MRG NABS nontender no HSM no CCE nonfocal Laboratory Tests 10/29/18 08:40: Sodium Level 139, Potassium Level 3.8, Chloride Level 108H, Carbon Dioxide Level 24, Anion Gap 7, Blood Urea Nitrogen 16, Creatinine 0.8, Estimat Glomerular Filtration Rate , Glucose Level 290H, Uric Acid 2.6, Calcium Level 7.8L, Phosphorus Level 2.0L, Magnesium Level 1.7L, Total Bilirubin 0.3, Aspartate Amino Transf (AST/SGOT) 22, Alanine Aminotransferase (ALT/SGPT) 19, Alkaline Phosphatase 51, Total Protein 5.2L, Albumin 1.8L, Globulin 3.4, Albumin /Globulin Ratio 0.5L Current Medications Medications (Trade) Dose Ordered Sig/Itzel Route PRN Reason Start Time Stop Time Status Last Admin Dose Admin Acetaminophen (Tylenol) 650 mg Q4H PRN ORAL Mild Pain/Temp > 100.5 10/28/18 23:45 11/23/18 19:44 10/29/18 22:01 Dextrose (Dextrose 50%) 25 ml Q30M PRN IV Hypoglycemia 10/28/18 23:15 11/23/18 14:44 Dextrose (Dextrose 50%) 50 ml Q30M PRN IV Hypoglycemia 10/28/18 23:15 11/23/18 14:44 Diltiazem HCl (Cardizem) 10 mg Q4H PRN IVP For HR > 120 10/29/18 02:00 11/24/18 21:47 Diltiazem HCl (Cardizem) 90 mg EVERY 8 HOURS ORAL 10/29/18 06:00 11/25/18 13:59 10/30/18 05:19 Docusate Sodium (Colace) 100 mg THREE TIMES A DAY ORAL 10/29/18 09:00 11/23/18 17:59 Folic Acid (Folate) 3 mg DAILY ORAL 10/29/18 09:00 11/25/18 09:29 Heparin Sodium (Porcine) (Heparin 5000 units/ml) 5,000 units EVERY 12 HOURS SUBQ 10/29/18 09:00 11/23/18 20:59 10/29/18 20:56 Insulin Aspart (NovoLOG) BEFORE MEALS AND HS SUBQ 10/29/18 06:30 11/23/18 16:29 10/29/18 20:56 Ipratropium [place] (Atrovent) 500 mcg Q4HRT HHN 10/28/18 23:00 10/30/18 18:59 10/29/18 19:44 Meropenem 500 mg/ Sodium Chloride 55 ml @ 110 mls/hr EVERY 8 HOURS IVPB 10/29/18 06:00 11/01/18 13:59 10/30/18 05:20 Multivitamins (Multivitamins) 1 tab DAILY ORAL 10/29/18 09:00 11/24/18 08:59 Ondansetron HCl (Zofran) 4 mg Q6H PRN IVP Nausea & Vomiting 10/29/18 02:30 11/23/18 14:29 Pantoprazole (Protonix) 40 mg DAILY ORAL 10/29/18 09:00 11/24/18 08:59 Patient Own Medication (Patient's Own Med) 1 ea DAILY ORAL 10/29/18 09:00 11/24/18 08:59 UNV Polyethylene Glycol (Miralax) 17 gm BEDTIME ORAL 10/29/18 21:00 11/23/18 20:59 10/29/18 20:54 Sennosides (Senokot) 8.6 mg DAILYPRN PRN ORAL Constipation 10/29/18 14:30 11/23/18 14:29 Sodium Hypochlorite (Dakin's Full Strength) 1 applic BEDTIME TOPIC 10/29/18 21:00 11/23/18 20:59 10/29/18 21:22 Sodium Chloride 1,000 ml @ 75 mls/hr [id number] IV 10/28/18 22:45 11/23/18 14:44 10/30/18 05:22 Tamsulosin HCl (Flomax) 0.4 mg BEDTIME ORAL 10/29/18 21:00 11/23/18 20:59 10/29/18 20:55 Gume Pablo MD Oct 30, 2018 08:38
--- NOTE | 2018-10-30 08:40 | NUR ---
NURSE NOTES: Patient refused his wounds and his skin evaluated by RN.
[2018-10-30] MEDS: Docusate 100mg cap ORAL SCH ×3 (09:00→18:00)
[2018-10-30] MEDS: Heparin 5000 units/ml inj SUBQ SCH (09:02)
--- NOTE | 2018-10-30 10:03 | GI Progress Note ---
Assessment/Plan Problems: (1) Coffee ground emesis ICD Codes: K92.0 - Hematemesis SNOMED: 98148849 (2) GI bleed ICD Codes: K92.2 - Gastrointestinal hemorrhage, unspecified SNOMED: 04217476 (3) Sepsis ICD Codes: A41.9 - Sepsis, unspecified organism SNOMED: 15051028 Status: stable Status Narrative Discussed with Dr. Mendoza. Assessment/Plan no recurrent vomiting poor po intake ppi stable H&H no plans for EGD or colonoscopy at this time fu labs supportive care fu cardiology recs wound care The patient was seen and examined at bedside and all new and available data was reviewed in the patients chart. I agree with the above findings, impression and plan. (Patient seen earlier today. Signature stamp does not reflect patient encounter time.). - Fernie Mendoza MD Subjective Gastrointestinal/Abdominal: Reports: no symptoms Objective Last 24 Hour Vital Signs Date Time Temp Pulse Resp B/P (MAP) Pulse Ox O2 Delivery O2 Flow Rate FiO2 10/30/18 08:00 90 10/30/18 08:00 98.2 97 21 106/59 (75) 97 10/30/18 08:00 Room Air 10/30/18 07:22 Room Air 10/30/18 07:22 Room Air 10/30/18 07:21 Room Air 10/30/18 05:19 90 105/70 10/30/18 04:00 98.0 90 18 105/70 (82) 95 10/30/18 04:00 92 10/30/18 04:00 Room Air 10/30/18 03:02 Room Air 10/30/18 03:02 Room Air 10/30/18 00:00 98.6 100 19 103/62 (76) 96 10/30/18 00:00 97 10/30/18 00:00 Room Air 10/29/18 23:00 Room Air 10/29/18 23:00 Room Air 10/29/18 21:56 102 111/70 10/29/18 20:00 98.5 104 19 103/64 (77) 96 10/29/18 20:00 Room Air 10/29/18 20:00 101 10/29/18 19:45 100 18 96 Room Air 10/29/18 19:44 96 Room Air 10/29/18 19:44 96 18 100 Room Air 21 10/29/18 16:00 Room Air 10/29/18 16:00 97 10/29/18 16:00 97.7 102 18 92/60 (71) 97 10/29/18 15:14 Room Air 21 10/29/18 15:14 Room Air 21 10/29/18 14:03 102 94/63 (73) 10/29/18 12:00 Room Air 10/29/18 12:00 98.0 93 20 98/55 (69) 93 10/29/18 12:00 91 10/29/18 11:21 Room Air 21 10/29/18 11:21 Room Air 21 Intake and Output 10/29/18 10/30/18 19:00 07:00 Intake Total 655 ml 315 ml Output Total 1000 ml 1000 ml Balance -345 ml -685 ml Intake Oral 240 ml IV Total 655 ml 75 ml Output Urine Total 1000 ml 1000 ml Height (Feet): 6 Height (Inches): 1.00 Weight (Pounds): 161 General Appearance: WD/WN, no apparent distress, alert Cardiovascular: normal rate Respiratory/Chest: normal breath sounds, no respiratory distress Abdominal Exam: normal bowel sounds, non tender, soft Extremities: normal range of motion, non-tender Zak Pink PARQUETRY LAYER Oct 30, 2018 10:03
--- NOTE | 2018-10-30 10:57 | Infectious Diseases Prog Note ---
Assessment/Plan Assessment/Plan IMPRESSION: Sepsis improving UTI with Klebsiella ESBL pneumonia, HIV lactic acidosis, Acute renal failure improving, diabetes mellitus with hyperglycemia, Alzheimer dementia. MRSA carrier RECOMMENDATION: continue Meropenem HIV treatment (Vanna) is not available in hospital Subjective ROS Limited/Unobtainable: Yes Constitutional: Reports: no symptoms Allergies: Coded Allergies: CHEESE (Verified Allergy, Severe, 10/24/18) Objective Vital Signs Last 24 Hour Vital Signs Date Time Temp Pulse Resp B/P (MAP) Pulse Ox O2 Delivery O2 Flow Rate FiO2 10/30/18 08:00 90 10/30/18 08:00 98.2 97 21 106/59 (75) 97 10/30/18 08:00 Room Air 10/30/18 07:22 Room Air 10/30/18 07:22 Room Air 10/30/18 07:21 Room Air 10/30/18 05:19 90 105/70 10/30/18 04:00 98.0 90 18 105/70 (82) 95 10/30/18 04:00 92 10/30/18 04:00 Room Air 10/30/18 03:02 Room Air 10/30/18 03:02 Room Air 10/30/18 00:00 98.6 100 19 103/62 (76) 96 10/30/18 00:00 97 10/30/18 00:00 Room Air 10/29/18 23:00 Room Air 10/29/18 23:00 Room Air 10/29/18 21:56 102 111/70 10/29/18 20:00 98.5 104 19 103/64 (77) 96 10/29/18 20:00 Room Air 10/29/18 20:00 101 10/29/18 19:45 100 18 96 Room Air 10/29/18 19:44 96 Room Air 10/29/18 19:44 96 18 100 Room Air 10/29/18 16:00 Room Air 10/29/18 16:00 97 10/29/18 16:00 97.7 102 18 92/60 (71) 97 10/29/18 15:14 Room Air 10/29/18 15:14 Room Air 10/29/18 14:03 102 94/63 (73) 10/29/18 12:00 Room Air 10/29/18 12:00 98.0 93 20 98/55 (69) 93 10/29/18 12:00 91 10/29/18 11:21 Room Air 21 10/29/18 11:21 Room Air 21 Height (Feet): 6 Height (Inches): 1.00 Weight (Pounds): 161 General Appearance: no acute distress HEENT: mucous membranes moist Respiratory/Chest: lungs clear Cardiovascular: normal rate Abdomen: soft, non tender Extremities: no edema Neurologic/Psychiatric: other - sleeping Current Medications Medications (Trade) Dose Ordered Sig/Itzel Route PRN Reason Start Time Stop Time Status Last Admin Dose Admin Acetaminophen (Tylenol) 650 mg Q4H PRN ORAL Mild Pain/Temp > 100.5 10/28/18 23:45 11/23/18 19:44 10/29/18 22:01 Dextrose (Dextrose 50%) 25 ml Q30M PRN IV Hypoglycemia 10/28/18 23:15 11/23/18 14:44 Dextrose (Dextrose 50%) 50 ml Q30M PRN IV Hypoglycemia 10/28/18 23:15 11/23/18 14:44 Diltiazem HCl (Cardizem) 10 mg Q4H PRN IVP For HR > 120 10/29/18 02:00 11/24/18 21:47 Diltiazem HCl (Cardizem) 90 mg EVERY 8 HOURS ORAL 10/29/18 06:00 11/25/18 13:59 10/30/18 05:19 Docusate Sodium (Colace) 100 mg THREE TIMES A DAY ORAL 10/29/18 09:00 11/23/18 17:59 10/30/18 09:00 Folic Acid (Folate) 3 mg DAILY ORAL 10/29/18 09:00 11/25/18 09:29 10/30/18 09:01 Heparin Sodium (Porcine) (Heparin 5000 units/ml) 5,000 units EVERY 12 HOURS SUBQ 10/29/18 09:00 11/23/18 20:59 10/30/18 09:02 Insulin Aspart (NovoLOG) BEFORE MEALS AND HS SUBQ 10/29/18 06:30 11/23/18 16:29 10/29/18 20:56 Ipratropium [place] (Atrovent) 500 mcg Q4HRT HHN 10/28/18 23:00 10/30/18 18:59 10/29/18 19:44 Meropenem 500 mg/ Sodium Chloride 55 ml @ 110 mls/hr EVERY 8 HOURS IVPB 10/29/18 06:00 11/01/18 13:59 10/30/18 05:20 Multivitamins (Multivitamins) 1 tab DAILY ORAL 10/29/18 09:00 11/24/18 08:59 10/30/18 09:01 Ondansetron HCl (Zofran) 4 mg Q6H PRN IVP Nausea & Vomiting 10/29/18 02:30 11/23/18 14:29 Pantoprazole (Protonix) 40 mg DAILY ORAL 10/29/18 09:00 11/24/18 08:59 10/30/18 09:00 Patient Own Medication (Patient's Own Med) 1 ea DAILY ORAL 10/29/18 09:00 11/24/18 08:59 UNV Polyethylene Glycol (Miralax) 17 gm BEDTIME ORAL 10/29/18 21:00 11/23/18 20:59 10/29/18 20:54 Sennosides (Senokot) 8.6 mg DAILYPRN PRN ORAL Constipation 10/29/18 14:30 11/23/18 14:29 Sodium Hypochlorite (Dakin's Full Strength) 1 applic BEDTIME TOPIC 10/29/18 21:00 11/23/18 20:59 10/29/18 21:22 Sodium Chloride 1,000 ml @ 75 mls/hr [id number] IV 10/28/18 22:45 11/23/18 14:44 10/30/18 05:22 Tamsulosin HCl (Flomax) 0.4 mg BEDTIME ORAL 10/29/18 21:00 11/23/18 20:59 10/29/18 20:55 Rigo Ames MD Oct 30, 2018 10:57
--- NOTE | 2018-10-30 11:00 | NUR ---
NURSE NOTES: Patient refused receiving Respiratory therapy.
--- NOTE | 2018-10-30 11:14 | Surgery Progress Note ---
Surgery Progress Note Subjective Additional Comments no acute events. doing well. no complaints still non compliant with care at times does not allow for wound care and dressings changes does not allow for turning. Objective Last 24 Hour Vital Signs Date Time Temp Pulse Resp B/P (MAP) Pulse Ox O2 Delivery O2 Flow Rate FiO2 10/30/18 11:08 Room Air 10/30/18 11:08 Room Air 10/30/18 08:00 90 10/30/18 08:00 98.2 97 21 106/59 (75) 97 10/30/18 08:00 Room Air 10/30/18 07:22 Room Air 10/30/18 07:22 Room Air 10/30/18 07:21 Room Air 10/30/18 05:19 90 105/70 10/30/18 04:00 98.0 90 18 105/70 (82) 95 10/30/18 04:00 92 10/30/18 04:00 Room Air 10/30/18 03:02 Room Air 10/30/18 03:02 Room Air 10/30/18 00:00 98.6 100 19 103/62 (76) 96 10/30/18 00:00 97 10/30/18 00:00 Room Air 10/29/18 23:00 Room Air 10/29/18 23:00 Room Air 10/29/18 21:56 102 111/70 10/29/18 20:00 98.5 104 19 103/64 (77) 96 10/29/18 20:00 Room Air 10/29/18 20:00 101 10/29/18 19:45 100 18 96 Room Air 10/29/18 19:44 96 Room Air 10/29/18 19:44 96 18 100 Room Air 10/29/18 16:00 Room Air 10/29/18 16:00 97 10/29/18 16:00 97.7 102 18 92/60 (71) 97 10/29/18 15:14 Room Air 10/29/18 15:14 Room Air 10/29/18 14:03 102 94/63 (73) 10/29/18 12:00 Room Air 10/29/18 12:00 98.0 93 20 98/55 (69) 93 10/29/18 12:00 91 10/29/18 11:21 Room Air 21 10/29/18 11:21 Room Air 21 I&O Intake and Output 10/29/18 10/30/18 19:00 07:00 Intake Total 655 ml 315 ml Output Total 1000 ml 1000 ml Balance -345 ml -685 ml Intake Oral 240 ml IV Total 655 ml 75 ml Output Urine Total 1000 ml 1000 ml Dressing: saturated Wound: other Drains: other Cardiovascular: RSR Respiratory: clear Abdomen: soft, present bowel sounds, non-distended Extremities: no cyanosis, other Plan Problems: (1) GI bleed (2) Coffee ground emesis (3) Fever (4) Pneumonia (5) BPH (benign prostatic hyperplasia) (6) Tachycardia (7) Sepsis Assessment & Plan: tachycardic improving leukocytosis improving pna iv Abx trend labs UA and MICRO noted will follow nutritional optimization DAILY ESTIMATED NEEDS: Needs based on Wound, HIV, Underweight, sepsis/ 60kg 30-35 kcals/kg 3241-9706 total kcals 1.25-2.0 g protein/kg 75-120 g total protein 25-30 mL/kg 4821-5773 total fluid mLs NUTRITION DIAGNOSIS: Increased kcal/prot intake needs R/T wound healing, sepsis, underweight status as evidenced by admitted w/ right hip stage 3 healing decubitus ulcer and left hip large unstageable decubitus ulcer identified with black eschar, multiple 1-2 cm stage 3 decubitus ulcers in the sacral and lower back area, admitted w/ elev LA-> now wnl, elev wbc (13.6), low BMI per guidelines, noted w/ severe BLE wasting. CURRENT DIET:CCHO MED/ pureed moist PO DIET RECOMMENDATIONS: Maintain CCHO MED/ texture per INSTALLER SOFT TOP + Glucerna 1 tetra harshil TID ADDITIONAL RECOMMENDATIONS: * Re-calibrated bedscale wt for accurate CBW (w/ added P200 mattress) -> weekly wts * Wound healing: add Vit C 500mg BID, Reddy 1pkt BID : add ZnSO4 220mg QD x 10 days * Glucerna TID (pt reuqesting chocolate flavor) * Monitor lytes, replete as needed (low phos) * Monitor PO intake closely (8) Decubitus skin ulcer Assessment & Plan: Pt presented on admission with multiple pressure injuries. Staff on unit reports pt resistive to wound care and to being repositioned. Initially pt was resistive and attempted to hit staff but with encouragement pt apologized and consented to have staff evaluate wounds. Maroon area without induration or fluctuance noted to L thoracic area.(L)2cm x ( W)1cm. #2 areas of Unstageable pressure injuries noted to lumbar spine(proximal wound) (L)1cm x (W)0.9cm.100% yellow slough with marginal erythema noted.(inferior wound)(L)1cm x (W)1cm.Base of wound has 100% slough with marginal erythema.Periwound skin is pink. Unstageable pressure injury noted to L but in close proximity lumbar spine. Base of wound has 100% slough with marginal erythema.(L)0.4cm x (W)0.3cm. Non- blanchable erythema without induration periwound. Unstageable pressure injury sacrum.Base of wound has 100% slough with marginal erythema.(L)0.8cm x (W)0.9cm. Non-blanchable erythema without induration periwound. Partial thickness pressure injury noted to R trochanter. Base of wound moist - viable.(L)1.5cm x (W)0.5cm. Borders and periwound dark brown with dry peeling skin. Unstageable pressure injury with necrosis centrally with surrounding erythematous base. (+) maceration along edges.Periwound with dry ,brown peeling skin .No induration or erythema periwound. No odor noted.(L)9 cm x (W)7.5cm. Non-blanchable erythema without induration or fluctuance noted to L lateral malleolus. Pt educated on wound prevention. Pt educated of risks vs benefits on compliance with wound care and to being repositioned. Pt stated he was unaware of stages of wounds and expressed appreciation for wound care but still became agitated while being repositioned. Tx.Plan: Cleanse L trochanteric wound with Saline. Apply Therahoney. Apply Moisture Barrier to borders and periwound. Cover with Optifoam drsg Daily and prn. Cleanse wounds lumbar spine and sacral area with Saline. Apply Therahoney to each wound . Apply Cavilon Skin Barrier to borders of each wound. Cover wounds with Optifoam drsg. Change every 3 days and prn. Apply Cavilon Skin Barrier to L thoracic.Cover with Optifoam drsg. Change every 7 days and prn. Apply Cavilon Skin Barrier to both heels. Cover each heel with Optifoam drsg. Change every 7 days and prn. Apply Cavilon Skin Barrier to L lateral malleolus. Cover with Optifoam drsg. Change every 7 days and prn. Reposition at least every 2hours or as tolerated. Off-load heels with pillow. APM/MACKENZIE mattress overlay. (9) Hypotension (10) Pyelonephritis (11) Afib (12) HIV (human immunodeficiency virus infection) Michael Clay Oct 30, 2018 11:14
--- NOTE | 2018-10-30 11:30 | NUR ---
NURSE NOTES: Patient refused Blood Sugar checked by RN.
--- NOTE | 2018-10-30 11:43 | Cardiac Electrophysiology PN ---
Assessment/Plan Assessment/Plan 1. Atrial fibrillation with rapid ventricular response. In SR on Cardizem 90 mg every 6 hours p.o and Cardizem 10 mg IV p.r.n. But has been off and on refusing Cardizem Ruled out [facility] protocol. EF of 55%. Off full anticoagulation for gi bleed 2. Coffee-ground emesis and GI bleed. No recurrent vomiting, but has poor oral intake. Resumed PPI. HB stable. No plans for EGD or colonoscopy by Dr. Mendoza. 3. UTI and sepsis. On IV antibiotic per Dr. Rigo Ames. 4. HIV. 5. Pneumonia. 6. Diabetes. 7. Alzheimer dementia. DW RN DC tele Subjective Subjective No CP or SOB. Refusing labs and BS check. Objective Last 24 Hour Vital Signs Date Time Temp Pulse Resp B/P (MAP) Pulse Ox O2 Delivery O2 Flow Rate FiO2 10/30/18 11:08 Room Air 10/30/18 11:08 Room Air 10/30/18 08:00 90 10/30/18 08:00 98.2 97 21 106/59 (75) 97 10/30/18 08:00 Room Air 10/30/18 07:22 Room Air 10/30/18 07:22 Room Air 10/30/18 07:21 Room Air 10/30/18 05:19 90 105/70 10/30/18 04:00 98.0 90 18 105/70 (82) 95 10/30/18 04:00 92 10/30/18 04:00 Room Air 10/30/18 03:02 Room Air 10/30/18 03:02 Room Air 10/30/18 00:00 98.6 100 19 103/62 (76) 96 10/30/18 00:00 97 10/30/18 00:00 Room Air 10/29/18 23:00 Room Air 10/29/18 23:00 Room Air 10/29/18 21:56 102 111/70 10/29/18 20:00 98.5 104 19 103/64 (77) 96 10/29/18 20:00 Room Air 10/29/18 20:00 101 10/29/18 19:45 100 18 96 Room Air 10/29/18 19:44 96 Room Air 10/29/18 19:44 96 18 100 Room Air 21 10/29/18 16:00 Room Air 10/29/18 16:00 97 10/29/18 16:00 97.7 102 18 92/60 (71) 97 10/29/18 15:14 Room Air 21 10/29/18 15:14 Room Air 21 10/29/18 14:03 102 94/63 (73) 10/29/18 12:00 Room Air 10/29/18 12:00 98.0 93 20 98/55 (69) 93 10/29/18 12:00 91 Intake and Output 10/29/18 10/30/18 19:00 07:00 Intake Total 655 ml 315 ml Output Total 1000 ml 1000 ml Balance -345 ml -685 ml Intake Oral 240 ml IV Total 655 ml 75 ml Output Urine Total 1000 ml 1000 ml Objective HEAD AND NECK: No JVD. LUNGS: Coarse rhonchi. CARDIOVASCULAR: Irregularly irregular, S1 and S2 with no gallop or murmur. ABDOMEN: Soft. EXTREMITIES: Lower extremities are contracted with no edema. Uri Abdullahi MD Oct 30, 2018 11:43
[2018-10-30 12:00] VITALS: BP 118/78
--- NOTE | 2018-10-30 12:20 | Nephrology Progress Note ---
Assessment/Plan Problem List: (1) Sepsis (2) Tachycardia (3) Hypotension Assessment Hypotension UTI pneumonia, lactic acidosis, acute renal failure, diabetes mellitus with hyperglycemia, Alzheimer dementia. Plan poorly cooporates K and Mag and phos supply as needed Albumin bolus as needed check renal parameters per orders midodrine for low bp antibiotics Subjective ROS Limited/Unobtainable: No Constitutional: Reports: malaise, weakness Objective Objective Last 24 Hour Vital Signs Date Time Temp Pulse Resp B/P (MAP) Pulse Ox O2 Delivery O2 Flow Rate FiO2 10/30/18 11:08 Room Air 10/30/18 11:08 Room Air 10/30/18 08:00 90 10/30/18 08:00 98.2 97 21 106/59 (75) 97 10/30/18 08:00 Room Air 10/30/18 07:22 Room Air 10/30/18 07:22 Room Air 10/30/18 07:21 Room Air 10/30/18 05:19 90 105/70 10/30/18 04:00 98.0 90 18 105/70 (82) 95 10/30/18 04:00 92 10/30/18 04:00 Room Air 10/30/18 03:02 Room Air 10/30/18 03:02 Room Air 10/30/18 00:00 98.6 100 19 103/62 (76) 96 10/30/18 00:00 97 10/30/18 00:00 Room Air 10/29/18 23:00 Room Air 10/29/18 23:00 Room Air 10/29/18 21:56 102 111/70 10/29/18 20:00 98.5 104 19 103/64 (77) 96 10/29/18 20:00 Room Air 10/29/18 20:00 101 10/29/18 19:45 100 18 96 Room Air 10/29/18 19:44 96 Room Air 10/29/18 19:44 96 18 100 Room Air 10/29/18 16:00 Room Air 10/29/18 16:00 97 10/29/18 16:00 97.7 102 18 92/60 (71) 97 10/29/18 15:14 Room Air 10/29/18 15:14 Room Air 21 7/8/19 14:03 102 94/63 (73) Intake and Output 10/29/18 10/30/18 19:00 07:00 Intake Total 655 ml 315 ml Output Total 1000 ml 1000 ml Balance -345 ml -685 ml Intake Oral 240 ml IV Total 655 ml 75 ml Output Urine Total 1000 ml 1000 ml Height (Feet): 6 Height (Inches): 1.00 Weight (Pounds): 161 General Appearance: no apparent distress Objective no change Randal Matamoros MD Oct 30, 2018 12:20
[2018-10-30] MEDS: Magnesium Oxide 400mg tab ORAL SCH ×2 (13:00→18:00)
[2018-10-30] MEDS: Phospha 250 Neutral tab ORAL SCH ×2 (13:00→18:00)
[2018-10-30 14:00] VITALS: BP 118/78
--- NOTE | 2018-10-30 14:28 | NUR ---
SWALLOW STATUS: PATIENT ALERT BUT REFUSING PO AND MEDICAL PROCEDURES. GOALS NOT MET FOR INTAKE BUT GOALS MET FOR NEW STAFF EDUCATED/TRAINED IN POSTED ASPIRATION PRECAUTIONS. PATIENT REFUSING MECH SOFT FINELY CHOPPED DIET BUT HE IS DRINKING HIS NECTAR THICK LIQUIDS. HE WANTS HAMBURGERS AND HOT DOGS. WILL TRY TO CLEAR HIM FOR A SOFT CHEW DIET IF TOLERATED TOMORROW SINCE HE DOES NOT WANT TO HAVE PO TRIAL NOW. WILL ALSO TRY TO COMPLETE MOD BARIUM SWALLOW STUDY IF HE IS RECEPTIVE (MAY REFUSE BARIUM). PLAN: CONTINUE WITH PLAN OF CARE IN SWALLOWING EVALUATION REPORT. CONSIDER PSYCH ASSIST WITH COMPLIANCE ISSUES.
--- NOTE | 2018-10-30 14:42 | NUR ---
NURSE NOTES: Patient refused afternoon medication, and refused breathing treatment.
--- NOTE | 2018-10-30 14:43 | NUR ---
RESPIRATORY NOTE: pt has refused all breathing treatments scheduled today. Venu MENDEZ aware and notified
--- NOTE | 2018-10-30 15:17 | NUR ---
NURSE NOTES: Patient refused to be cleaned and didn't let the RN change the linen for him.
--- NOTE | 2018-10-30 15:44 | NUR ---
DISCHARGE DISPOSITION: PLEASE READ PATIENT TO BE DISCHARGED TO [facility] [address] T: [phone]>>> CALL FOR REPORT [facility] ETA 1800 SKILLED FAMILY IS AGREEABLE AND AWARE
--- NOTE | 2018-10-30 16:40 | NUR ---
NURSE NOTES: Called to [facility] and report given to ANDREA Angel. Patient will be under Dr. Rios's care and will resume hospital medications.
--- NOTE | 2018-10-30 18:43 | General Progress Note ---
Assessment/Plan Problem List: (1) Sepsis ICD Codes: A41.9 - Sepsis, unspecified organism SNOMED: 50997359 (2) Tachycardia ICD Codes: R00.0 - Tachycardia, unspecified SNOMED: 2508208 (3) GI bleed ICD Codes: K92.2 - Gastrointestinal hemorrhage, unspecified SNOMED: 61165688 (4) Coffee ground emesis ICD Codes: K92.0 - Hematemesis SNOMED: 21564732 (5) Fever ICD Codes: R50.9 - Fever, unspecified SNOMED: 721217485 (6) Pneumonia ICD Codes: J18.9 - Pneumonia, unspecified organism SNOMED: 269027824 (7) BPH (benign prostatic hyperplasia) ICD Codes: N40.0 - Benign prostatic hyperplasia without lower urinary tract symptoms SNOMED: 578116109 Status: stable Assessment/Plan: going to [place] see dc summary for details Subjective Allergies: Coded Allergies: CHEESE (Verified Allergy, Severe, 10/24/18) Objective Last 24 Hour Vital Signs Date Time Temp Pulse Resp B/P (MAP) Pulse Ox O2 Delivery O2 Flow Rate FiO2 10/30/18 16:00 98 10/30/18 14:43 Room Air 10/30/18 14:43 Room Air 10/30/18 14:00 91 118/78 10/30/18 12:00 Room Air 10/30/18 12:00 91 10/30/18 12:00 98.2 100 21 118/78 (91) 97 10/30/18 11:08 Room Air 10/30/18 11:08 Room Air 10/30/18 08:00 90 10/30/18 08:00 98.2 97 21 106/59 (75) 97 10/30/18 08:00 Room Air 10/30/18 07:22 Room Air 10/30/18 07:22 Room Air 10/30/18 07:21 Room Air 10/30/18 05:19 90 105/70 10/30/18 04:00 98.0 90 18 105/70 (82) 95 10/30/18 04:00 92 10/30/18 04:00 Room Air 10/30/18 03:02 Room Air 10/30/18 03:02 Room Air 10/30/18 00:00 98.6 100 19 103/62 (76) 96 10/30/18 00:00 97 10/30/18 00:00 Room Air 10/29/18 23:00 Room Air 21 10/29/18 23:00 Room Air 21 10/29/18 21:56 102 111/70 10/29/18 20:00 98.5 104 19 103/64 (77) 96 10/29/18 20:00 Room Air 10/29/18 20:00 101 10/29/18 19:45 100 18 96 Room Air 21 10/29/18 19:44 96 Room Air 21 10/29/18 19:44 96 18 100 Room Air 21 Intake and Output 10/29/18 10/30/18 19:00 07:00 Intake Total 655 ml 315 ml Output Total 1000 ml 1000 ml Balance -345 ml -685 ml Intake Oral 240 ml IV Total 655 ml 75 ml Output Urine Total 1000 ml 1000 ml Height (Feet): 6 Height (Inches): 1.00 Weight (Pounds): 161 Suresh Lindquist MD Oct 30, 2018 18:43
--- NOTE | 2018-10-30 19:27 | NUR ---
HAND-OFF: Report given to ANDREA Mancera.
--- NOTE | 2018-10-30 20:49 | NUR ---
NURSE NOTES: Transportation arrived to take pt to [facility], report given, pt in stable condition. Pt left floor at 2050.
--- NOTE | 2018-10-31 12:14 | Discharge Summary ---
Discharge Summary Discharge Summary _ DATE OF ADMISSION: 10/24/2018 DATE OF DISCHARGE: 10/30/2018 DISCHARGED BY: . REASON FOR ADMISSION: 77 years old male, resident of custodial facility, with past medical history of diabetes mellitus, coronary artery disease, dementia, HIV disease, was sent with generalized body aches and episodes of vomiting. Patient by himself denied any pain or discomfort. He denied cough or congestion. He denies shortness of breath or chest pain. Upon evaluation patient was tachycardic, with heart rate 124 and required nasal cannula with 4 liter of oxygen to keep pulse oximetry stable. Patient had a low-grade fever of 100. Laboratory work-up revealed significant leukocytosis WBC 21.6, stable hemoglobin and hematocrit. Lactic acid 5.5. Urinalysis was suggestive of UTI. BUN 32, creatinine 1.2, stable electrolytes. Stable LFT and lipase. Troponin negative. Pro BNP 4057. Lipid panel stable. Low folate level. Chest x-ray demonstrated patchy basilar interstitial densities. Septic work-up initiated: patient pancultured, started on empiric antibiotic and IV hydration and admitted for further management. CONSULTANTS: quality control inspector Dr. Key pulmonary Dr. Pablo ID specialist Dr. Dennis GI specialist Dr. Mendoza normalizer Dr. [facility] Dr. Clay [facility] COURSE: Patient admitted to telemetry floor. Forensic Structural Engineer closely followed. Supplemental oxygen titrated to keep pulse oximetry above 92%. Pulmonary toilet via handheld nebulizing therapy provided. Strict aspiration precaution maintained. IV antibiotic provided as per ID specialist recommendations. Blood cultures were negative. Urine culture revealed Proteus mirabilis ESBL Sputum culture revealed MRSA. Repeated urine culture revealed mixed gram-positive organisms. Leukocytosis trending down, but persist, patient afebrile. Per ID recommendation , continue meropenem to complete the course at the facility. For HIV treatment patient was getting Odefsey, which was not available in the hospital. Resume HAART when feasible. Patient noted to have an episode of atrial fibrillation with rapid ventricular response. Press Operator Automatic followed. Patient started on midodrine for low blood pressure, blood pressure subsequently stabilized. Patient converted to sinus rhythm with IV Cardizem. Patient started on oral Cardizem. Patient was noncompliant and was refusing Cardizem off and on. Serial troponin were negative. EKG revealed no acute ischemic changes. Patient was ruled out for acute NC. Patient initially started on anticoagulation , but anticoagulation stopped due to GI bleeding with coffee-ground emesis. Echocardiogram revealed preserved ejection fraction 55% with no evidence of wall motion abnormality. No evidence of left ventricular hypertrophy. Right ventricular systolic pressure of 26. GI specialist followed. No recurrent vomiting. GI prophylaxis resumed. No plans for EGD or colonoscopy as per GI specialist. Hemoglobin hematocrit remained stable. Patient was able to tolerate diet no further episodes of emesis. Patient presented with multiply pressure injuries. Wound care provided as per surgeon recommendation. Continue wound care at the facility. Hospital Laboratory Technician followed. Patient initially with evidence of acute renal failure. Patient was hydrated. Renal parameters electrolytes were closely monitored. Electrolytes/ potassium , magnesium and phosphorus repleted. Prior to discharge BUN from 39 down to 16, and creatinine from 1.7 down to 0.8. Supportive care provided. Bowel regimen instituted. Pain management was addressed as needed. Blood sugar was managed with sliding scale of insulin. Hemoglobin A1c -6.5 at goal. Folic acid replacement started due to low folic acid level . Patient clinically stabilized , but required long-term acute care facility. Subsequently transfer was arranged to [facility] of care. FINAL DIAGNOSES: Sepsis Proteus ESBL UTI MRSA pneumonia Lactic acidosis Hypotension Acute renal failure resolved Atrial fibrillation with rapid ventricular response Coffee-ground emesis with GI bleeding Diabetes mellitus with hyperglycemia Alzheimer's dementia Decubitus skin ulcer/multiply pressure injury, present on admission DISCHARGE MEDICATIONS: List of medication was sent to accepting facility. DISCHARGE INSTRUCTIONS: Patient was discharged to [facility]. Follow-up with medical doctor at the facility I have been assigned to dictate discharge summary for this account. I was not involved in the patient's management. Cecelia Wise NP Oct 31, 2018 12:14
--- NOTE | 2018-10-31 14:07 | Diagnostic Imaging Report ---
APPROVED REPORT CPT Code: 68788 Present Symptoms Comments: BILATERAL LEGS PAIN. RIGHT LEG: Venous imaging reveals a patent deep venous system. There is no evidence of thrombus within the femoral or tibial segments. The greater saphenous vein is also within normal limits. Doppler indicates normal spontaneous flow within these segments.popliteal vein not visulized due to patient's position contracted. LEFT LEG: Venous imaging reveals a patent deep venous system. There is no evidence of thrombus within the femoral, popliteal or tibial segments. The greater saphenous vein is also within normal limits. Doppler indicates normal spontaneous flow within these segments.
== END 2018-10-30 20:40 | DRG 974 ==
LOC: EDBD 08:55 → EMR 10:25 → 2W 10:35 → EDBEDREQSVC 11:17 → EDBEDREQ 11:24 → 2E 10-28 22:37
DX: A41.9 Sepsis, unspecified organism (principal); L89.103 Pressure ulcer of unspecified part of back, stage 3; B20 Human immunodeficiency virus [HIV] disease; L89.213 Pressure ulcer of right hip, stage 3; J15.212 Pneumonia due to Methicillin resistant Staphylococcus aureus; N39.0 Urinary tract infection, site not specified; N17.9 Acute kidney failure, unspecified; K92.2 Gastrointestinal hemorrhage, unspecified; R64 Cachexia; I95.9 Hypotension, unspecified; G30.9 Alzheimer's disease, unspecified; F02.80 Dementia in other diseases classified elsewhere, unspecified severity, without behavioral disturbance, psychotic disturbance, mood disturbance, and anxiety; B96.4 Proteus (mirabilis) (morganii) as the cause of diseases classified elsewhere; Z16.12 Extended spectrum beta lactamase (ESBL) resistance; I48.91 Unspecified atrial fibrillation; L89.90 Pressure ulcer of unspecified site, unspecified stage; E11.65 Type 2 diabetes mellitus with hyperglycemia; N40.0 Benign prostatic hyperplasia without lower urinary tract symptoms; L89.100 Pressure ulcer of unspecified part of back, unstageable; L89.150 Pressure ulcer of sacral region, unstageable; L89.219 Pressure ulcer of right hip, unspecified stage
CPT/HCPCS: 36415; 71045; 80048; 80053; 80061; 80076; 80202; 81001; 81003; 82550; 82553; 82607; 82728; 82746; 82962; 82977; 83036; 83605; 83690; 83735; 83880; 84100; 84300; 84443; 84484; 84550; 85007; 85025; 85610; 85730; 86140; 86710; 86850; 86900; 86901; 87040; 87070; 87081; 87086; 87181; 87205; 92610; 93005; 93306; 93970; 94640; 94664; 96361; 96365; 96375; 99285; J1815